=== PATIENT | male | born 1960 | race American Indian/Alaskan Native ===

== ENCOUNTER 2018-05-08 07:24 | Day surgery (SDC) | payer MEDICARE ==
[2018-05-08] VITALS (18 sets, daily range): BP systolic 127–186; BP diastolic 86–120
[~2018-05-08 07:24] MED LIST: ASPI-611 PO; CARV3.122 PO; LISI40TA4 PO; NITR0.4T51 SL; PANT-47 PO; TICA90TA PO; ZOLP10TA5 PO
[2018-05-08] MEDS ORDERED: LIDOcaine 1%/PF 5ML 10 MG/ML VIAL IJ ONE (07:55)
[2018-05-08] MEDS ORDERED: MIDAZolam 5mg/5ml vial IV ONE (07:55)
[2018-05-08 08:00] LABS: HEMATOCRIT 42.1 % (42.0-52.0); HEMOGLOBIN 13.9 g/dl (14.0-17.9); MEAN CORPUSCULAR HEMOGLOBIN 29.3 PG (27.0-31.0); MEAN CORPUSCULAR VOLUME 88.6 FL (78-98); MEAN PLATELET VOLUME 10.2 FL (7.4-10.4); PLATELET COUNT 276 X10'3 (140-440); RED BLOOD COUNT 4.76 X10'6 (4.70-6.10); RED CELL DISTRIBUTION WIDTH 15.8 % (11.5-14.5); WHITE BLOOD COUNT 7.7 X10'3 (4.5-11.0)
[2018-05-08] MEDS ORDERED: normal saline 1000ml 1,000 ML IV SCH (08:15)
[2018-05-08] MEDS ORDERED: captoPRIL 25mg tablet PO ONE (08:15)
[2018-05-08] MEDS ORDERED: lisinopril 5mg tablet PO ONE (08:30)
[2018-05-08 09:06] LABS: ANISOCYTOSIS 1+; PLATELET ESTIMATE NORMAL; TOTAL CELLS COUNTED 100
[2018-05-08 09:08] LABS: LARGE PLATELETS FEW; SCHISTOCYTES FEW; TARGET CELLS 1+
[2018-05-08] MEDS ORDERED: cloNIDine 0.1 mg tablet PO ONE (10:05)
[2018-05-08 13:39] LABS: HEMATOCRIT 38.2 % (42.0-52.0); HEMOGLOBIN 12.6 g/dl (14.0-17.9); MEAN CORPUSCULAR HEMOGLOBIN 29.2 PG (27.0-31.0); MEAN CORPUSCULAR HGB CONC 33.1 % (33.0-36.5); MEAN CORPUSCULAR VOLUME 88.4 FL (78-98); MEAN PLATELET VOLUME 10.1 FL (7.4-10.4); PLATELET COUNT 243 X10'3 (140-440); RED BLOOD COUNT 4.32 X10'6 (4.70-6.10); RED CELL DISTRIBUTION WIDTH 15.3 % (11.5-14.5); WHITE BLOOD COUNT 6.4 X10'3 (4.5-11.0)
[2018-05-08 14:16] LABS: PLATELET ESTIMATE NORMAL; SCHISTOCYTES FEW; TARGET CELLS 1+; TOTAL CELLS COUNTED 100
[2018-05-08 14:17] LABS: LARGE PLATELETS FEW; SPHEROCYTES FEW
[2018-05-08 15:20] LABS: HEMATOCRIT 37.8 % (42.0-52.0); HEMOGLOBIN 12.5 g/dl (14.0-17.9); MEAN CORPUSCULAR HEMOGLOBIN 29.3 PG (27.0-31.0); MEAN CORPUSCULAR HGB CONC 33.2 % (33.0-36.5); MEAN CORPUSCULAR VOLUME 88.4 FL (78-98); MEAN PLATELET VOLUME 10.3 FL (7.4-10.4); PLATELET COUNT 248 X10'3 (140-440); RED BLOOD COUNT 4.28 X10'6 (4.70-6.10); RED CELL DISTRIBUTION WIDTH 15.5 % (11.5-14.5); WHITE BLOOD COUNT 6.2 X10'3 (4.5-11.0)
[2018-05-08] MEDS ORDERED: HYDR-565 PO (16:02)
[2018-05-08 19:13] LABS: TOTAL CELLS COUNTED 100
[2018-05-08 19:22] LABS: PLATELET ESTIMATE NORMAL; TARGET CELLS FEW
== END 2018-05-08 16:10 | disposition home or self-care (01) ==
LOC: SSTAY O 07:24
PROVIDERS: ATTEND Internal Medicine Critical Care Medicine
DX: I12.9 Hypertensive chronic kidney disease with stage 1 through stage 4 chronic kidney disease, or unspecified chronic kidney disease (principal); N18.3 Chronic kidney disease, stage 3 (moderate); I25.10 Atherosclerotic heart disease of native coronary artery without angina pectoris; I25.2 Old myocardial infarction; G90.50 Complex regional pain syndrome I, unspecified; C90.00 Multiple myeloma not having achieved remission; Z90.89 Acquired absence of other organs; Z72.89 Other problems related to lifestyle; Z79.891 Long term (current) use of opiate analgesic; Z88.6 Allergy status to analgesic agent; Z86.74 Personal history of sudden cardiac arrest; Z87.442 Personal history of urinary calculi; Z79.01 Long term (current) use of anticoagulants; Z95.5 Presence of coronary angioplasty implant and graft; Z90.49 Acquired absence of other specified parts of digestive tract; Z90.81 Acquired absence of spleen; Z79.899 Other long term (current) drug therapy; Z98.890 Other specified postprocedural states; Z82.49 Family history of ischemic heart disease and other diseases of the circulatory system; Z80.9 Family history of malignant neoplasm, unspecified
CPT/HCPCS: 36415; 50200; 76942; 85025; 85576; 86885; 86900; 86901; 86920; A6449; J2001; J2250; J7030; 88300; A4620

== ENCOUNTER 2019-01-07 06:01 | Inpatient (IN) | payer MEDICARE, OTHER ==
[~2019-01-07] VITALS: Ht 185.4 cm; Wt 111.4 kg
[~2019-01-07 06:01] MED LIST changes: -ASPI-611 PO; -CARV3.122 PO; -NITR0.4T51 SL; -PANT-47 PO; -TICA90TA PO; -ZOLP10TA5 PO
[2019-01-07] MEDS ORDERED: normal saline 1000ml 1,000 ML IV ONE (06:25)
[2019-01-07] MEDS ORDERED: morphine 2 MG/ML inj. syringe IV PRN ×2 (06:30→15:45)
[2019-01-07] MEDS ORDERED: normal saline 1000ML IV soln IVB ONE (06:30)
[2019-01-07] MEDS ORDERED: D5-1/2NS w/20 mEq potassium per 1000ml IV ONE (06:30)
[2019-01-07] MEDS: metoprolol tartrate 1mg/ml inj IV SCH ×7 (06:50→07:50)
[2019-01-07] MEDS ORDERED: magnesium 2GM in 50ml NS 50 ML IV PRN (08:25)
[2019-01-07] MEDS ORDERED: potassium Cl 20 mEq SR tablet PO PRN ×2 (08:25)
[2019-01-07] MEDS ORDERED: potassium Cl 40MEQ/NS 500ml 500 ML IV PRN ×2 (08:25)
[2019-01-07] MEDS ORDERED: magnesium Cl slow-release 64mg tablet PO PRN (08:25)
[2019-01-07] MEDS ORDERED: ondansetron/PF 4mg/2ml inj IV PRN (08:25)
[2019-01-07] MEDS: normal saline 1000ml 1,000 ML IV SCH ×3 (08:25→22:20)
[2019-01-07] MEDS ORDERED: magnesium 4gm in 100ml NS 100 ML IV PRN (08:25)
[2019-01-07 08:27] LABS: BASOPHILS # (AUTO) 0.1 X10'3 (0-0.2); BASOPHILS % (AUTO) 0.9 % (0-1); EOSINOPHILS # (AUTO) 0.1 X10'3 (0-0.9); EOSINOPHILS % (AUTO) 0.7 % (0-6); HEMATOCRIT 35.7 % (42.0-52.0); LYMPHOCYTES % (AUTO) 11.2 % (21-51); MEAN CORPUSCULAR HEMOGLOBIN 29.1 PG (27.0-31.0); MEAN CORPUSCULAR HGB CONC 33.6 g/dL (33.0-36.5); MEAN CORPUSCULAR VOLUME 86.4 FL (78-98); MEAN PLATELET VOLUME 9.8 FL (7.4-10.4); MONOCYTES # (AUTO) 0.6 X10'3 (0-0.9); MONOCYTES % (AUTO) 7.1 % (2-12); NEUTROPHILS # (AUTO) 6.8 X10'3 (1.8-7.7); NEUTROPHILS % (AUTO) 80.1 % (42-75); PLATELET COUNT 279 X10'3 (140-440); RED BLOOD COUNT 4.14 X10'6 (4.70-6.10); RED CELL DISTRIBUTION WIDTH 15.3 % (11.5-14.5); WHITE BLOOD COUNT 8.5 X10'3 (4.5-11.0)
[2019-01-07 08:41] LABS: ALANINE AMINOTRANSFERASE 23 U/L (12-78); ALBUMIN 2.6 G/DL (3.4-5.0); ALBUMIN/GLOBULIN RATIO 0.5 (1.1-1.5); ALKALINE PHOSPHATASE 98 IU/L (46-116); ANION GAP 10 (8-16); ASPARTATE AMINO TRANSFERASE 16 U/L (10-37); BILIRUBIN,TOTAL 0.8 MG/DL (0.1-1.0); BLOOD UREA NITROGEN 35 MG/DL (7-18); BUN/CREATININE RATIO 14.5 (5.4-32.0); CALCIUM 8.3 MG/DL (8.5-10.1); CHLORIDE 108 MMOL/L (99-107); CREATININE 2.42 MG/DL (0.60-1.10); GLUCOSE 126 MG/DL (70-104); LIPASE 337 U/L (73-393); MAGNESIUM 1.7 MG/DL (1.5-2.4); POTASSIUM 3.8 MMOL/L (3.5-5.1); SODIUM 139 MMOL/L (135-145); TOTAL CARBON DIOXIDE 21.1 MMOL/L (24-32); TOTAL PROTEIN 7.4 G/DL (6.4-8.2); eGFR 28 ML/MIN
[2019-01-07] MEDS ORDERED: LIDOcaine Viscous 15ml cup PO ONE (09:30)
--- NOTE | 2019-01-07 09:33 | NUR ---
Patient in ER. I have received report from MELANY Anderson and had the opportunity to ask questions, awaiting patient arrival to floor.
[2019-01-07] MEDS: morphine 2 MG/ML inj. syringe IV PRN ×2 (10:17→15:08)
[2019-01-07 10:20] VITALS: BP 155/102
--- NOTE | 2019-01-07 11:45 | NUR ---
Pagenicolasa GRIFFIN to complete med req.
[2019-01-07 12:45] VITALS: BP 173/109
--- NOTE | 2019-01-07 12:47 | NUR ---
Patient's BP 173/109. No BP medications ordered. Page out to Dr Vitale. Awaiting response.
[2019-01-07] MEDS ORDERED: FLU VACC QUAD 2018(5 YR UP)/PF 60 MCG/0.5 ML SYRINGE IM ONE (13:00)
[2019-01-07] MEDS: hydrALAZINE 20mg/ml inj. IV SCH ×2 (13:08→22:18)
[2019-01-07] MEDS ORDERED: morphine 2 MG/ML inj. syringe IV ONE (15:50)
--- NOTE | 2019-01-07 16:00 | NUR ---
Patient still very painful after 1mg morphine. Dr. Vitale ordered 1mg more of morphine. Inquired need for repeat CT scan. stated no need for repeat scans at this time.
--- NOTE | 2019-01-07 17:30 | NUR ---
Patients BP 191/120 ... very painful again. MD aware. Awaiting new orders.
--- NOTE | 2019-01-07 17:57 | NUR ---
Dr. Vitale paged again. Patient still very painful. Awaiting response.
[2019-01-07] MEDS ORDERED: HYDROmorphone 1 mg/ml syringe IV PRN (18:20)
--- NOTE | 2019-01-07 18:45 | NUR ---
Problems reprioritized. Patient report given, questions answered & plan of care reviewed with MELANY NORWOOD.
--- NOTE | 2019-01-07 19:00 | NUR ---
Patient in room [facility]. I have received report from Ladonna MOSLEY and had the opportunity to ask questions and assume patient care. Pt laying bed on his back with NG on low intermittent suction and SCD's on. Pt extremely painful and expressing concern that his pain isn't being handled and he doesn't know how much more he can take. New order from Dr Vitale for 1mg dilaudid Q4h just came. Will administer and continue to monitor pain.
[2019-01-07 20:08] VITALS: BP 99/59
[2019-01-07] MEDS: HYDROmorphone 1 mg/ml syringe IV PRN (22:17)
[2019-01-07] MEDS: metroNIDAZOLE-Flagyl 250mg/NS 50 ML IV SCH (23:47)
[2019-01-08] VITALS (7 sets, daily range): BP systolic 165–195; BP diastolic 98–108
[2019-01-08] MEDS: HYDROmorphone 1 mg/ml syringe IV PRN ×5 (01:20→20:43)
[2019-01-08] MEDS: hydrALAZINE 20mg/ml inj. IV SCH ×4 (02:22→20:37)
[2019-01-08 04:17] LABS: BASOPHILS # (AUTO) 0.1 X10'3 (0-0.2); BASOPHILS % (AUTO) 0.7 % (0-1); EOSINOPHILS # (AUTO) 0.1 X10'3 (0-0.9); EOSINOPHILS % (AUTO) 1.3 % (0-6); HEMATOCRIT 37.8 % (42.0-52.0); HEMOGLOBIN 12.6 g/dl (14.0-17.9); LYMPHOCYTES # (AUTO) 0.8 X10'3 (1.1-4.8); LYMPHOCYTES % (AUTO) 8.9 % (21-51); MEAN CORPUSCULAR HEMOGLOBIN 28.7 PG (27.0-31.0); MEAN CORPUSCULAR HGB CONC 33.3 g/dL (33.0-36.5); MEAN CORPUSCULAR VOLUME 86.1 FL (78-98); MEAN PLATELET VOLUME 9.6 FL (7.4-10.4); NEUTROPHILS # (AUTO) 7.5 X10'3 (1.8-7.7); NEUTROPHILS % (AUTO) 79.1 % (42-75); PLATELET COUNT 309 X10'3 (140-440); RED BLOOD COUNT 4.39 X10'6 (4.70-6.10); RED CELL DISTRIBUTION WIDTH 15.6 % (11.5-14.5); WHITE BLOOD COUNT 9.5 X10'3 (4.5-11.0)
[2019-01-08 04:20] LABS: ALBUMIN 2.8 G/DL (3.4-5.0); ANION GAP 8 (8-16); BLOOD UREA NITROGEN 31 MG/DL (7-18); BUN/CREATININE RATIO 12.6 (5.4-32.0); CALCIUM 9.7 MG/DL (8.5-10.1); CHLORIDE 111 MMOL/L (99-107); CREATININE 2.47 MG/DL (0.60-1.10); GLUCOSE 105 MG/DL (70-104); MAGNESIUM 1.8 MG/DL (1.5-2.4); POTASSIUM 4.3 MMOL/L (3.5-5.1); SODIUM 145 MMOL/L (135-145); TOTAL CARBON DIOXIDE 25.6 MMOL/L (24-32); eGFR 27 ML/MIN
[2019-01-08] MEDS ORDERED: PER5325T (05:41)
--- NOTE | 2019-01-08 06:20 | NUR ---
Problems reprioritized. Patient report given, questions answered & plan of care reviewed with Meaghan MOSLEY.
--- NOTE | 2019-01-08 07:09 | NUR ---
Patient in room [facility]. I have received report from Malissa MOSLEY and had the opportunity to ask questions and assume patient care.
[2019-01-08] MEDS: K and/or MAG REPLACEMENT MC SCH (07:31)
[2019-01-08] MEDS: metroNIDAZOLE-Flagyl 250mg/NS 50 ML IV SCH ×2 (07:36→16:15)
[2019-01-08] MEDS: levoFLOXACIN-Levaquin 250mg/D5 50 ML IV SCH (08:17)
[2019-01-08] MEDS: normal saline 1000ml 1,000 ML IV SCH ×2 (08:23→20:45)
--- NOTE | 2019-01-08 11:16 | NUR ---
informed of high BP of 178/105. stated she would address medications.
--- NOTE | 2019-01-08 15:39 | NUR ---
called regarding high BP 195/106. stated she would input orders. Will continue to monitor.
[2019-01-08] MEDS: enalaprilat dihydrate 2.5mg/2ml vial IV SCH ×2 (17:03→20:00)
--- NOTE | 2019-01-08 17:30 | NUR ---
Dr. Nichole called to clarify CT order regarding kidney function. stated only oral contrast for CT Ab/pelvis for tomorrow.
--- NOTE | 2019-01-08 19:13 | NUR ---
Problems reprioritized. Patient report given, questions answered & plan of care reviewed with Agustina MOSLEY.
--- NOTE | 2019-01-08 19:15 | NUR ---
Patient in room [facility]. I have received report from BARTOLO MOSLEY and had the opportunity to ask questions and assume patient care.
[2019-01-08] MEDS: lactobacillus rhamnosus 10,000 MMU CELLS/CAPSULE PO SCH (20:00)
[2019-01-08] MEDS ORDERED: enalaprilat dihydrate 2.5mg/2ml vial IV SCH (20:00)
[2019-01-08] MEDS: diatr meglu/diatrizoate 30ml oral sol.-(3 dose) bottle PO SCH (22:10)
[2019-01-09] VITALS: BP 158/98
[2019-01-09] MEDS: metroNIDAZOLE-Flagyl 250mg/NS 50 ML IV SCH ×4 (00:18→23:53)
[2019-01-09] MEDS: HYDROmorphone 1 mg/ml syringe IV PRN ×2 (00:24→04:55)
[2019-01-09] MEDS: hydrALAZINE 20mg/ml inj. IV SCH ×2 (02:00→10:35)
[2019-01-09] MEDS: enalaprilat dihydrate 2.5mg/2ml vial IV SCH (02:36)
[2019-01-09 05:30] LABS: ALBUMIN 2.8 G/DL (3.4-5.0); ANION GAP 5 (8-16); BLOOD UREA NITROGEN 31 MG/DL (7-18); BUN/CREATININE RATIO 12.8 (5.4-32.0); CALCIUM 9.5 MG/DL (8.5-10.1); CHLORIDE 111 MMOL/L (99-107); CREATININE 2.42 MG/DL (0.60-1.10); GLUCOSE 89 MG/DL (70-104); MAGNESIUM 1.8 MG/DL (1.5-2.4); POTASSIUM 4.4 MMOL/L (3.5-5.1); SODIUM 147 MMOL/L (135-145); TOTAL CARBON DIOXIDE 31.2 MMOL/L (24-32); eGFR 28 ML/MIN
[2019-01-09 05:40] LABS: BASOPHILS # (AUTO) 0.1 X10'3 (0-0.2); EOSINOPHILS # (AUTO) 0.1 X10'3 (0-0.9); EOSINOPHILS % (AUTO) 1.4 % (0-6); HEMATOCRIT 36.7 % (42.0-52.0); HEMOGLOBIN 12.1 g/dl (14.0-17.9); LYMPHOCYTES # (AUTO) 1.2 X10'3 (1.1-4.8); LYMPHOCYTES % (AUTO) 14.2 % (21-51); MEAN CORPUSCULAR HEMOGLOBIN 28.6 PG (27.0-31.0); MEAN CORPUSCULAR HGB CONC 33.1 g/dL (33.0-36.5); MEAN CORPUSCULAR VOLUME 86.5 FL (78-98); MEAN PLATELET VOLUME 10.2 FL (7.4-10.4); MONOCYTES # (AUTO) 1.3 X10'3 (0-0.9); MONOCYTES % (AUTO) 15.5 % (2-12); NEUTROPHILS # (AUTO) 5.8 X10'3 (1.8-7.7); NEUTROPHILS % (AUTO) 67.9 % (42-75); PLATELET COUNT 289 X10'3 (140-440); RED BLOOD COUNT 4.24 X10'6 (4.70-6.10); RED CELL DISTRIBUTION WIDTH 15.3 % (11.5-14.5); WHITE BLOOD COUNT 8.6 X10'3 (4.5-11.0)
--- NOTE | 2019-01-09 06:30 | NUR ---
Problems reprioritized. Patient report given, questions answered & plan of care reviewed with ROLAND MOSLEY.
[2019-01-09 07:00] VITALS: BP 166/96
[2019-01-09 07:11] VITALS: BP 128/67
[2019-01-09] MEDS: pantoprazole 40 MG vial IV SCH (07:38)
[2019-01-09] MEDS: diatr meglu/diatrizoate 30ml oral sol.-(3 dose) bottle PO SCH ×2 (07:39→10:26)
[2019-01-09] MEDS: lactobacillus rhamnosus 10,000 MMU CELLS/CAPSULE PO SCH ×2 (08:00→21:36)
[2019-01-09] MEDS ORDERED: lisinopril 10 MG tablet PO SCH (08:00)
[2019-01-09] MEDS: K and/or MAG REPLACEMENT MC SCH (08:00)
--- NOTE | 2019-01-09 10:26 | NUR ---
Initial: Pt admit with abdominal pain here to r/o obstruction. Per surgeon notes pt has non-incarcerated umbilical hernia and pt states he has passed gas since NG tube was placed. Pt to receive nonoperative management with nasogastric suction for 48 hours for what appears to be a partial or early complete bowel obstruction per surgeon notes. Still no documented BM since 01/05. Pt currently NPO. Will continue to follow. Recommendations: 1) Advance to heart healthy diet as medically indicated 2) Monitor need for additional bowel care 3) Wt per rx Addendum: 01/09/19 at [address] Amended: Links added.
[2019-01-09 11:00] VITALS: BP 200/108
[2019-01-09] MEDS: levoFLOXACIN-Levaquin 250mg/D5 50 ML IV SCH (11:10)
[2019-01-09] MEDS ORDERED: HYDROmorphone 1 mg/ml syringe IV PRN (12:45)
--- NOTE | 2019-01-09 13:23 | NUR ---
Called CT regarding patient results are not up yet. Kavya will look into it and call us back
[2019-01-09] MEDS: normal saline 1000ml 1,000 ML IV SCH (14:12)
[2019-01-09 16:00] VITALS: BP 222/130
[2019-01-09] MEDS: hyDRALAzine 10mg tablet PO SCH ×2 (16:14→23:49)
--- NOTE | 2019-01-09 18:00 | NUR ---
Problems reprioritized. Patient report given, questions answered & plan of care reviewed with Fidelia Mistry RN.
[2019-01-09] MEDS ORDERED: hydrALAZINE 20mg/ml inj. IV ONE (18:10)
--- NOTE | 2019-01-09 18:30 | NUR ---
Patient in room [facility]. I have received report from ROLAND MOSLEY and had the opportunity to ask questions and assume patient care.
[2019-01-09] MEDS: HYDROmorphone inj. 0.5 MG/0.5 ML DISP.SYRIN IV PRN ×2 (19:17→23:49)
[2019-01-09 20:00] VITALS: BP 172/96
[2019-01-10] VITALS (7 sets, daily range): BP systolic 131–186; BP diastolic 83–116
[2019-01-10 04:43] LABS: BASOPHILS # (AUTO) 0.1 X10'3 (0-0.2); EOSINOPHILS # (AUTO) 0.6 X10'3 (0-0.9); EOSINOPHILS % (AUTO) 6.3 % (0-6); HEMATOCRIT 36.2 % (42.0-52.0); HEMOGLOBIN 11.9 g/dl (14.0-17.9); LYMPHOCYTES # (AUTO) 1.8 X10'3 (1.1-4.8); LYMPHOCYTES % (AUTO) 20.9 % (21-51); MEAN CORPUSCULAR HEMOGLOBIN 28.8 PG (27.0-31.0); MEAN CORPUSCULAR VOLUME 87.4 FL (78-98); MEAN PLATELET VOLUME 10.1 FL (7.4-10.4); MONOCYTES # (AUTO) 1.1 X10'3 (0-0.9); MONOCYTES % (AUTO) 12.8 % (2-12); NEUTROPHILS # (AUTO) 5.2 X10'3 (1.8-7.7); PLATELET COUNT 267 X10'3 (140-440); RED BLOOD COUNT 4.14 X10'6 (4.70-6.10); RED CELL DISTRIBUTION WIDTH 15.1 % (11.5-14.5); WHITE BLOOD COUNT 8.8 X10'3 (4.5-11.0)
[2019-01-10 05:03] LABS: ALBUMIN 2.5 G/DL (3.4-5.0); ANION GAP 5 (8-16); BLOOD UREA NITROGEN 26 MG/DL (7-18); BUN/CREATININE RATIO 11.2 (5.4-32.0); CALCIUM 8.9 MG/DL (8.5-10.1); CHLORIDE 109 MMOL/L (99-107); CREATININE 2.32 MG/DL (0.60-1.10); GLUCOSE 89 MG/DL (70-104); MAGNESIUM 1.6 MG/DL (1.5-2.4); POTASSIUM 3.4 MMOL/L (3.5-5.1); SODIUM 143 MMOL/L (135-145); eGFR 29 ML/MIN
--- NOTE | 2019-01-10 06:30 | NUR ---
Problems reprioritized. Patient report given, questions answered & plan of care reviewed with ROLAND MOSLEY.
--- NOTE | 2019-01-10 07:01 | NUR ---
Patient in room [facility]. I have received report from Fidelia Mistry RN and had the opportunity to ask questions and assume patient care.
[2019-01-10] MEDS: amLODIPine 5mg tablet PO SCH (07:25)
[2019-01-10] MEDS: pantoprazole 40 MG vial IV SCH (07:26)
[2019-01-10] MEDS: hyDRALAzine 10mg tablet PO SCH ×2 (07:26→16:13)
[2019-01-10] MEDS: lactobacillus rhamnosus 10,000 MMU CELLS/CAPSULE PO SCH ×2 (07:26→19:20)
[2019-01-10] MEDS: normal saline 1000ml 1,000 ML IV SCH ×2 (07:27→23:24)
[2019-01-10] MEDS: metroNIDAZOLE-Flagyl 250mg/NS 50 ML IV SCH ×2 (07:27→16:13)
[2019-01-10] MEDS ORDERED: lisinopril 10 MG tablet PO SCH (08:00)
[2019-01-10] MEDS: K and/or MAG REPLACEMENT MC SCH (08:00)
[2019-01-10] MEDS: HYDROmorphone inj. 0.5 MG/0.5 ML DISP.SYRIN IV PRN ×4 (08:35→23:23)
[2019-01-10] MEDS: lisinopril 10 MG tablet PO SCH (10:14)
--- NOTE | 2019-01-10 16:30 | NUR ---
Advised Dr Nelson patients BP is still 177/104 PO Hydralazine given per MD orders. Per Dr Nelson no furter orders at this time continue with medication as ordered.
[2019-01-10] MEDS ORDERED: magnesium Cl slow-release 64mg tablet PO PRN (17:35)
[2019-01-10] MEDS ORDERED: potassium Cl 20 mEq SR tablet PO PRN (17:35)
[2019-01-10] MEDS ORDERED: magnesium 4gm in 100ml NS 100 ML IV PRN (17:35)
[2019-01-10] MEDS ORDERED: potassium Cl 40MEQ/NS 500ml 500 ML IV PRN ×2 (17:35)
[2019-01-10] MEDS: potassium Cl 20 mEq SR tablet PO PRN (17:47)
--- NOTE | 2019-01-10 18:45 | NUR ---
Problems reprioritized. Patient report given, questions answered & plan of care reviewed with Fidelia Mistry RN.
--- NOTE | 2019-01-10 18:47 | NUR ---
Patient in room [facility]. I have received report from ROLAND MOSLEY and had the opportunity to ask questions and assume patient care.
[2019-01-11] VITALS: BP 204/121
[2019-01-11] MEDS: metroNIDAZOLE-Flagyl 250mg/NS 50 ML IV SCH ×3 (00:06→15:38)
[2019-01-11] MEDS: hyDRALAzine 10mg tablet PO SCH ×3 (00:09→15:39)
[2019-01-11 02:00] VITALS: BP 182/102
[2019-01-11 04:00] VITALS: BP 188/121
--- NOTE | 2019-01-11 04:10 | NUR ---
PAGEJaiden NUÑEZ CALLED BACK AND WAS INFORMED OF ELEVATED BLOOD PRESSURE 188/121 WITH ORDER TO GIVE CLONIDINE 0.2MG ONE TIME DOSE.
[2019-01-11] MEDS ORDERED: cloNIDine 0.1 mg tablet PO ONE (04:25)
[2019-01-11] MEDS: HYDROmorphone inj. 0.5 MG/0.5 ML DISP.SYRIN IV PRN ×2 (04:53→09:04)
[2019-01-11 05:15] LABS: BASOPHILS # (AUTO) 0.1 X10'3 (0-0.2); BASOPHILS % (AUTO) 1.6 % (0-1); EOSINOPHILS # (AUTO) 0.3 X10'3 (0-0.9); HEMATOCRIT 37.5 % (42.0-52.0); HEMOGLOBIN 12.2 g/dl (14.0-17.9); LYMPHOCYTES # (AUTO) 0.7 X10'3 (1.1-4.8); LYMPHOCYTES % (AUTO) 7.3 % (21-51); MEAN CORPUSCULAR HEMOGLOBIN 28.7 PG (27.0-31.0); MEAN CORPUSCULAR HGB CONC 32.6 g/dL (33.0-36.5); MEAN CORPUSCULAR VOLUME 87.9 FL (78-98); MEAN PLATELET VOLUME 10.4 FL (7.4-10.4); MONOCYTES # (AUTO) 0.7 X10'3 (0-0.9); MONOCYTES % (AUTO) 6.9 % (2-12); NEUTROPHILS # (AUTO) 7.7 X10'3 (1.8-7.7); NEUTROPHILS % (AUTO) 81.2 % (42-75); PLATELET COUNT 270 X10'3 (140-440); RED BLOOD COUNT 4.26 X10'6 (4.70-6.10); RED CELL DISTRIBUTION WIDTH 15.2 % (11.5-14.5); WHITE BLOOD COUNT 9.5 X10'3 (4.5-11.0)
[2019-01-11 05:21] LABS: ALBUMIN 2.5 G/DL (3.4-5.0); ANION GAP 10 (8-16); BLOOD UREA NITROGEN 20 MG/DL (7-18); BUN/CREATININE RATIO 9.1 (5.4-32.0); CALCIUM 8.9 MG/DL (8.5-10.1); CHLORIDE 107 MMOL/L (99-107); CREATININE 2.19 MG/DL (0.60-1.10); GLUCOSE 114 MG/DL (70-104); MAGNESIUM 1.5 MG/DL (1.5-2.4); POTASSIUM 3.5 MMOL/L (3.5-5.1); SODIUM 141 MMOL/L (135-145); eGFR 31 ML/MIN
--- NOTE | 2019-01-11 06:20 | NUR ---
Patient in room [facility]. I have received report from Fidelia Mistry RN and had the opportunity to ask questions and assume patient care. Patient very painful at this time. Will check to see when next pain medication can be given. Call light and items of frequent use in reach of patient.
--- NOTE | 2019-01-11 06:30 | NUR ---
Problems reprioritized. Patient report given, questions answered & plan of care reviewed with KURT MOSLEY.
[2019-01-11 07:08] VITALS: BP 129/78
[2019-01-11] MEDS: K and/or MAG REPLACEMENT MC SCH (08:00)
[2019-01-11] MEDS: pantoprazole 40 MG vial IV SCH (09:04)
[2019-01-11] MEDS: lactobacillus rhamnosus 10,000 MMU CELLS/CAPSULE PO SCH ×2 (09:10→20:51)
[2019-01-11] MEDS: lisinopril 10 MG tablet PO SCH (09:11)
[2019-01-11] MEDS: amLODIPine 5mg tablet PO SCH (09:11)
[2019-01-11 11:37] VITALS: BP_SYST 108; BP_SYST 118; BP_DIAS 50; BP_DIAS 72
[2019-01-11] MEDS: normal saline 1000ml 1,000 ML IV SCH (14:00)
--- NOTE | 2019-01-11 18:34 | NUR ---
Problems reprioritized. Patient report given, questions answered & plan of care reviewed with Fidelia Mistry RN. Patient finishing dinner at this time.
--- NOTE | 2019-01-11 18:35 | NUR ---
Patient in room [facility]. I have received report from KURT MOSLEY and had the opportunity to ask questions and assume patient care.
[2019-01-11 20:00] VITALS: BP 152/91
[2019-01-11] MEDS: temazepam 15mg capsule PO PRN (22:47)
[2019-01-12] VITALS: BP 116/62
[2019-01-12] MEDS: metroNIDAZOLE-Flagyl 250mg/NS 50 ML IV SCH ×2 (00:53→07:49)
[2019-01-12] MEDS: normal saline 1000ml 1,000 ML IV SCH ×2 (00:54→16:35)
[2019-01-12] MEDS: hyDRALAzine 10mg tablet PO SCH ×3 (00:57→19:29)
[2019-01-12] MEDS: HYDROmorphone inj. 0.5 MG/0.5 ML DISP.SYRIN IV PRN ×5 (01:48→21:00)
[2019-01-12 04:33] LABS: BASOPHILS # (AUTO) 0.1 X10'3 (0-0.2); BASOPHILS % (AUTO) 1.8 % (0-1); EOSINOPHILS # (AUTO) 0.8 X10'3 (0-0.9); EOSINOPHILS % (AUTO) 12.2 % (0-6); HEMATOCRIT 35.2 % (42.0-52.0); HEMOGLOBIN 11.6 g/dl (14.0-17.9); LYMPHOCYTES % (AUTO) 15.1 % (21-51); MEAN CORPUSCULAR HEMOGLOBIN 28.7 PG (27.0-31.0); MEAN CORPUSCULAR HGB CONC 33.1 g/dL (33.0-36.5); MEAN CORPUSCULAR VOLUME 86.8 FL (78-98); MEAN PLATELET VOLUME 10.7 FL (7.4-10.4); MONOCYTES # (AUTO) 0.7 X10'3 (0-0.9); MONOCYTES % (AUTO) 9.8 % (2-12); NEUTROPHILS # (AUTO) 4.1 X10'3 (1.8-7.7); NEUTROPHILS % (AUTO) 61.1 % (42-75); PLATELET COUNT 256 X10'3 (140-440); RED BLOOD COUNT 4.05 X10'6 (4.70-6.10); WHITE BLOOD COUNT 6.8 X10'3 (4.5-11.0)
[2019-01-12 04:52] LABS: ALBUMIN 2.5 G/DL (3.4-5.0); ANION GAP 10 (8-16); BLOOD UREA NITROGEN 18 MG/DL (7-18); BUN/CREATININE RATIO 8.3 (5.4-32.0); CALCIUM 8.7 MG/DL (8.5-10.1); CHLORIDE 107 MMOL/L (99-107); CREATININE 2.18 MG/DL (0.60-1.10); GLUCOSE 90 MG/DL (70-104); MAGNESIUM 1.5 MG/DL (1.5-2.4); POTASSIUM 3.2 MMOL/L (3.5-5.1); SODIUM 141 MMOL/L (135-145); TOTAL CARBON DIOXIDE 24.2 MMOL/L (24-32); eGFR 31 ML/MIN
--- NOTE | 2019-01-12 06:08 | NUR ---
Problems reprioritized. Patient report given, questions answered & plan of care reviewed with KURT MOSLEY.
--- NOTE | 2019-01-12 06:19 | NUR ---
Patient in room [facility]. I have received report from Fidelia Mistry RN and had the opportunity to ask questions and assume patient care. Patient resting comfortably at this time. Call light and items of frequent use in reach of patient at this time.
[2019-01-12] MEDS: K and/or MAG REPLACEMENT MC SCH (07:06)
[2019-01-12 07:38] VITALS: BP 172/101
[2019-01-12] MEDS: methylPREDNISolone sod succ/PF 40mg inj. IV SCH (07:49)
[2019-01-12] MEDS: pantoprazole 40 MG vial IV SCH (07:49)
[2019-01-12] MEDS: lactobacillus rhamnosus 10,000 MMU CELLS/CAPSULE PO SCH ×2 (07:59→19:28)
[2019-01-12] MEDS: amLODIPine 5mg tablet PO SCH (07:59)
[2019-01-12] MEDS: lisinopril 10 MG tablet PO SCH (08:00)
[2019-01-12] MEDS: potassium Cl 20 mEq SR tablet PO PRN ×3 (08:01→16:21)
[2019-01-12 12:00] VITALS: BP 138/84
--- NOTE | 2019-01-12 13:05 | NUR ---
reassessment: Pt Advanced to regular diet from 100% PO full liquids. LBM 01/11 w/ abdominal pain improving per MD note. CT revealed IBD; possibly f/u outpt w/ GI as well as nephrology for CKD per MD note. Will continue to monitor for diet advancement to low-residue if symptoms persist. Recommendations: 1) Advance to low-residue diet as medically indicated 2) routine bowel care 3) Wt per rx Addendum: 01/12/19 at [address] Amended: Links added.
[2019-01-12] MEDS ORDERED: levoFLOXACIN-Levaquin 500mg/D5 100 ML IV ONE (15:52)
--- NOTE | 2019-01-12 18:06 | NUR ---
Received report from MELANY Pemberton. Patient is awake and alert on room air, in no apparent distress. Visitor at bedside. Call light and items of frequent use within reach. Will continue to monitor.
--- NOTE | 2019-01-12 18:15 | NUR ---
Problems reprioritized. Patient report given, questions answered & plan of care reviewed with MELANY Michael.
[2019-01-12 20:00] VITALS: BP 138/86
[2019-01-12] MEDS: temazepam 15mg capsule PO PRN (20:59)
[2019-01-13] VITALS: BP 132/92
[2019-01-13] MEDS: hyDRALAzine 10mg tablet PO SCH ×3 (01:25→13:55)
[2019-01-13] MEDS: HYDROmorphone inj. 0.5 MG/0.5 ML DISP.SYRIN IV PRN (01:25)
[2019-01-13 04:40] LABS: MAGNESIUM 1.7 MG/DL (1.5-2.4)
--- NOTE | 2019-01-13 06:20 | NUR ---
Patient in room [facility] 344. I have received report from MELANY Michael and had the opportunity to ask questions and assume patient care. Patient resting comfortably at this time. Call light and items of frequent use in reach of patient.
--- NOTE | 2019-01-13 06:25 | NUR ---
Problems reprioritized. Patient report given, questions answered & plan of care reviewed with MELANY Pemberton.
[2019-01-13 07:19] VITALS: BP 166/108
[2019-01-13] MEDS ORDERED: pantoprazole 40mg Tablet.DR PO SCH (07:30)
[2019-01-13] MEDS: K and/or MAG REPLACEMENT MC SCH (08:00)
[2019-01-13] MEDS: lisinopril 10 MG tablet PO SCH (08:49)
[2019-01-13] MEDS: amLODIPine 5mg tablet PO SCH (08:49)
[2019-01-13] MEDS: lactobacillus rhamnosus 10,000 MMU CELLS/CAPSULE PO SCH (08:49)
[2019-01-13] MEDS: methylPREDNISolone sod succ/PF 40mg inj. IV SCH (08:50)
[2019-01-13] MEDS: normal saline 1000ml 1,000 ML IV SCH (08:52)
--- NOTE | 2019-01-13 12:16 | NUR ---
Patient in room [facility]. I have received report from MELANY Pemberton and had the opportunity to ask questions and assume patient care.
[2019-01-13 13:38] VITALS: BP 174/102
[2019-01-13 13:50] VITALS: BP 178/110
[2019-01-13] MEDS ORDERED: CIPR-230 PO (13:56)
[2019-01-13] MEDS ORDERED: METR-159 PO (13:56)
[2019-01-13] MEDS ORDERED: levoFLOXACIN-Levaquin 250mg/D5 50 ML IV SCH (15:00)
--- NOTE | 2019-01-13 15:20 | NUR ---
Patient discharged home via spouse and taken from unit via wheelchair with x1 staff. Patient alert, oriented and in no apparent distress at time of discharge. Patient PIV removed with cannula intact. Patient took all belongings including medications delivered with [facility]. Patient stated an understanding of discharge instructions and had time for questions an answers. Patient stated that he plans to follow up with his PCP.
--- NOTE | 2019-01-13 17:12 | NUR ---
Problems reprioritized. Patient report given, questions answered & plan of care reviewed with MELANY Pemberton.
== END 2019-01-13 15:21 | disposition home or self-care (01) | DRG 683 ==
LOC: ER 06:02 → ED HOLD 09:50 → SUR 3N 10:05
PROVIDERS: ADMIT Internal Medicine; ATTEND Internal Medicine
DX: N17.9 Acute kidney failure, unspecified (principal); R18.8 Other ascites; C90.00 Multiple myeloma not having achieved remission; K56.7 Ileus, unspecified; K52.9 Noninfective gastroenteritis and colitis, unspecified; K63.9 Disease of intestine, unspecified; I25.10 Atherosclerotic heart disease of native coronary artery without angina pectoris; N18.9 Chronic kidney disease, unspecified; I12.9 Hypertensive chronic kidney disease with stage 1 through stage 4 chronic kidney disease, or unspecified chronic kidney disease; Z66 Do not resuscitate; Z23 Encounter for immunization; I25.2 Old myocardial infarction; Z90.81 Acquired absence of spleen; Z90.49 Acquired absence of other specified parts of digestive tract; Z86.718 Personal history of other venous thrombosis and embolism; Z80.8 Family history of malignant neoplasm of other organs or systems; Z82.49 Family history of ischemic heart disease and other diseases of the circulatory system
CPT/HCPCS: 36415; 74176; 80048; 80053; 83690; 83735; 84132; 85025; 87070; 96361; 96374; 99285; C9113; G0378; J0360; J1170; J1956; J2270; J2405; J2920; J3490; J7030; Q2037; Q9963

== ENCOUNTER 2020-06-17 12:28 | Outpatient (CLI) | payer BC, MEDICARE ==
[~2020-06-17] VITALS: Ht 185.4 cm; Wt 106.6 kg
[~2020-06-17 12:28] MED LIST changes: +ALLO100T PO; +CARV-50 PO; +CRIS60OI TOP; -LISI40TA4 PO; +MET0.75G TP; +METR55GE TP; +PER5325T PO; +ZOLP10TA PO
[2020-06-17] MEDS ORDERED: HYDR-4069 PO (13:43)
[2020-06-17] MEDS ORDERED: CARV25TA2 PO (13:43)
[2020-06-17 14:33] LABS: CLARITY,URINE CLEAR (Clear); COLOR,URINE STRAW (Yellow); GLUCOSE, URINE 100 mg/dl (Neg); KETONES,URINE NEGATIVE (Neg); LEUKOCYTE ESTERASE ,URINE NEGATIVE (Neg); NITRITES, URINE NEGATIVE (Neg); OCCULT BLOOD,URINE TRACE-INTACT (Neg); PROTEIN,URINE 100 mg/dl (Neg); UROBILINOGEN,URINE 0.2 E.U/dL (0.2-1.0)
[2020-06-17 14:36] LABS: EOSINOPHILS # (AUTO) 0.7 X10'3 (0-0.9); PRE OP HEMOGLOBIN 11.3 g/dL (14.0-17.9)
[2020-06-17 14:38] LABS: BASOPHILS # (AUTO) 0.1 X10'3 (0-0.2); BASOPHILS % (AUTO) 2.2 % (0-1); EOSINOPHILS % (AUTO) 11.2 % (0-6); LYMPHOCYTES # (AUTO) 1.1 X10'3 (1.1-4.8); LYMPHOCYTES % (AUTO) 18.7 % (21-51); MEAN CORPUSCULAR HGB CONC 32.8 g/dL (33.0-36.5); MEAN CORPUSCULAR VOLUME 91.5 FL (78-98); NEUTROPHILS # (AUTO) 3.1 X10'3 (1.8-7.7); NEUTROPHILS % (AUTO) 51.9 % (42-75); PRE OP HEMATOCRIT 34.3 % (42.0-52.0); PRE OP PLATELET COUNT 197 X10'3 (140-440); RED BLOOD COUNT 3.75 X10'6 (4.70-6.10); RED CELL DISTRIBUTION WIDTH 14.8 % (11.5-14.5)
[2020-06-17 14:45] LABS: UA COLLECTION TYPE CLN CATCH MIDSTREAM
[2020-06-17 14:46] LABS: ALBUMIN 3.6 G/DL (3.4-5.0); ALBUMIN/GLOBULIN RATIO 0.7 (1.1-1.5); ALKALINE PHOSPHATASE 90 IU/L (46-116); BLOOD UREA NITROGEN 55 MG/DL (7-18); BUN/CREATININE RATIO 9.5 (5.4-32.0); CHLORIDE 111 MMOL/L (99-107); PRE OP ALT 35 U/L (30-65); PRE OP ANION GAP 7 (8-16); PRE OP AST 23 U/L (10-37); PRE OP BILIRUB, TOTAL 0.5 MG/DL (0.0-1.0); PRE OP SODIUM 144 MMOL/L (135-145); TOTAL CARBON DIOXIDE 26.2 MMOL/L (24-32); TOTAL PROTEIN 8.5 G/DL (6.4-8.2); eGFR 10 ML/MIN
[2020-06-17 14:47] LABS: BACTERIA,URINE FEW /HPF (Neg); RBC,URINE 0-2 /HPF (0-2); SQUAMOUS EPITHELIAL CELL,UR FEW /LPF (FEW)
[2020-06-17 14:48] LABS: WBC,URINE 0-4 /HPF (0-4)
[2020-06-17 14:51] LABS: PRE OP GLUCOSE 48 MG/DL (70-104)
[2020-06-17 15:08] LABS: PLATELET ESTIMATE NORMAL; TOTAL CELLS COUNTED 100
[2020-06-17 15:09] LABS: POLYCHROMASIA FEW
[2020-06-17 15:10] LABS: LARGE PLATELETS FEW
[2020-06-23] MEDS ORDERED: ringers solution, lacted 1,000 ML IV SCH (05:00)
[2020-06-23] MEDS ORDERED: ceFAZolin 2gm in dextrose, iso 50 ML IV ONE (05:30)
[2020-06-23] MEDS ORDERED: famotidine 20mg tablet PO ONE (05:30)
[2020-06-23] MEDS ORDERED: DOCUMENT DATE & TIME OF BETA-BLOCKER PO ONE (05:30)
== END 2020-06-17 23:59 | disposition home or self-care (01) ==
LOC: PRE-OP 12:28 → EDSTATUS 06-23 10:45
PROVIDERS: ATTEND Surgery
DX: Z01.812 Encounter for preprocedural laboratory examination (principal); Z20.828 Contact with and (suspected) exposure to other viral communicable diseases
CPT/HCPCS: 36415; 80053; 81001; 85007; 85025; 87635; 93005; J7120

== ENCOUNTER 2020-06-24 10:50 | Day surgery (SDC) | payer BC, MEDICARE ==
[2020-06-24] VITALS (9 sets, daily range): BP systolic 158–175; BP diastolic 89–104
[~2020-06-24] VITALS: Ht 185.4 cm; Wt 106.6 kg
[~2020-06-24 10:50] MED LIST changes: -ALLO100T PO; -CARV-50 PO; +CARV25TA2 PO; -CRIS60OI TOP; +HYDR-4069 PO; -MET0.75G TP; -METR55GE TP; -PER5325T PO
[2020-06-24] MEDS ORDERED: famotidine 20mg tablet PO ONE (12:07)
[2020-06-24] MEDS ORDERED: ringers solution, lacted 1,000 ML IV SCH ×2 (12:07→15:15)
[2020-06-24] MEDS ORDERED: ceFAZolin 2gm in dextrose, iso 50 ML IV ONE (12:20)
[2020-06-24 12:56] LABS: ISTAT CREATININE 6.3 mg/dL (0.8-1.3); ISTAT HGB 12.2 g/dl (14.0-18.0); ISTAT IONIZED CALCIUM 1.24 mmol/L (1.03-1.32); ISTAT K 4.4 mmol/L (3.5-5.1); POC BUN/CREATININE RATIO 8.7 (5.4-32.0)
[2020-06-24] MEDS ORDERED: BUPIVAcaine/PF 2.5 mg/ml (0.25%) 30ml vial ONE (15:13)
[2020-06-24] MEDS ORDERED: heparin 10,000 units/1 ML INJ ONE (15:13)
[2020-06-24] MEDS ORDERED: mupirocin 2% ointment 22GM ONE (15:13)
[2020-06-24] MEDS ORDERED: meperidine/PF 25mg/ml syringe IV PRN ×3 (15:15)
[2020-06-24] MEDS ORDERED: morphine 2 MG/ML inj. syringe IV PRN (15:15)
[2020-06-24] MEDS ORDERED: ondansetron/PF 4mg/2ml inj IV PRN (15:15)
[2020-06-24] MEDS ORDERED: morphine 4 MG/ML inj SYRINge IV PRN (15:15)
[2020-06-24] MEDS ORDERED: proCHLORperazine 10 MG/2 ml inj IV PRN (15:15)
[2020-06-24] MEDS ORDERED: sevoflurane 250ml liquid IH ONE (15:23)
[2020-06-24] MEDS ORDERED: fentaNYL /PF 50mcg/ml 5ml ampule ONE (15:23)
[2020-06-24] MEDS ORDERED: midazolam 2 mg/2 ml injection ONE (15:23)
[2020-06-24] MEDS ORDERED: propofol inj 20 ML IV ONE (15:23)
[2020-06-24] MEDS ORDERED: rocuronium 10mg/ml inj IV ONE (15:23)
[2020-06-24] MEDS ORDERED: heparin sodium, porcine/PF 100unit/ml 5ML syringe ONE (15:24)
[2020-06-24] MEDS ORDERED: neostigmine methylsulfate 1 MG/ML 10ml vial ONE (16:48)
[2020-06-24] MEDS ORDERED: glycopyrrolate 0.2mg/ml inj ONE (16:48)
--- NOTE | 2020-06-24 16:50 | NUR ---
ADMITTED TO PACU FROM OR ACCOMPANIED BY ANESTHESIA. INTIAL PHYSICAL ASSESSMENT DONE AND RECORDED. REPORT RECEIVED FROM ANESTHESIA.
[2020-06-24] MEDS ORDERED: HYDROcodone/acetaminophen 10/325mg tab PO ONE (17:20)
--- NOTE | 2020-06-24 18:47 | NUR ---
DISCHARGE CRITERIA MET, DISCHARGE INSTRUCTIONS GIVEN, DEMONSTRATES VERBAL UNDERSTANDING. DISCHARGED HOME IN GOOD CONDITION.
--- NOTE | 2020-06-24 18:58 | NUR ---
ADMITTED TO PACU FROM OR ACCOMPANIED BY ANESTHESIA. INTIAL PHYSICAL ASSESSMENT DONE AND RECORDED. REPORT RECEIVED FROM ANESTHESIA. Addendum: 06/24/20 at 1859 by Kavya Desai RN ERROR IN ADMIT TIME, ACTUALLY TIME 0378
== END 2020-06-24 19:00 | disposition home or self-care (01) ==
LOC: PAS 10:50
PROVIDERS: ATTEND Surgery
DX: I13.2 Hypertensive heart and chronic kidney disease with heart failure and with stage 5 chronic kidney disease, or end stage renal disease (principal); N18.5 Chronic kidney disease, stage 5; K42.9 Umbilical hernia without obstruction or gangrene; I50.20 Unspecified systolic (congestive) heart failure; I25.10 Atherosclerotic heart disease of native coronary artery without angina pectoris; I25.2 Old myocardial infarction; Z95.5 Presence of coronary angioplasty implant and graft; Z79.899 Other long term (current) drug therapy; Z98.890 Other specified postprocedural states; Z90.49 Acquired absence of other specified parts of digestive tract; Z85.79 Personal history of other malignant neoplasms of lymphoid, hematopoietic and related tissues; Z82.49 Family history of ischemic heart disease and other diseases of the circulatory system
CPT/HCPCS: 49324; 49652; 71045; 80047; C1750; C1758; J1642; J1644; J2250; J2270; J2704; J2710; J3010; J3490; J7120; A4215; A4618; A7000

== ENCOUNTER 2020-11-03 07:55 | Day surgery (SDC) | payer BC, MEDICARE ==
[2020-10-28 10:29] LABS: CLARITY,URINE CLEAR (Clear); COLOR,URINE STRAW (Yellow); GLUCOSE, URINE 100 mg/dl (Neg); KETONES,URINE NEGATIVE (Neg); LEUKOCYTE ESTERASE ,URINE NEGATIVE (Neg); NITRITES, URINE NEGATIVE (Neg); OCCULT BLOOD,URINE SMALL (Neg); PROTEIN,URINE 100 mg/dl (Neg); UROBILINOGEN,URINE 0.2 E.U/dL (0.2-1.0)
[2020-10-28 10:30] LABS: BASOPHILS # (AUTO) 0.2 X10'3 (0-0.2); MEAN CORPUSCULAR VOLUME 91.3 FL (78-98); RED CELL DISTRIBUTION WIDTH 14.9 % (11.5-14.5)
[2020-10-28 10:31] LABS: BASOPHILS % (AUTO) 2.5 % (0-1); EOSINOPHILS # (AUTO) 0.7 X10'3 (0-0.9); EOSINOPHILS % (AUTO) 7.8 % (0-6); LYMPHOCYTES # (AUTO) 1.5 X10'3 (1.1-4.8); LYMPHOCYTES % (AUTO) 18.1 % (21-51); MEAN CORPUSCULAR HEMOGLOBIN 29.7 PG (27.0-31.0); MEAN CORPUSCULAR HGB CONC 32.6 g/dL (33.0-36.5); MEAN PLATELET VOLUME 10.8 FL (7.4-10.4); MONOCYTES # (AUTO) 0.5 X10'3 (0-0.9); MONOCYTES % (AUTO) 6.3 % (2-12); NEUTROPHILS # (AUTO) 5.5 X10'3 (1.8-7.7); NEUTROPHILS % (AUTO) 65.3 % (42-75); PRE OP HEMATOCRIT 35.6 % (42.0-52.0); PRE OP HEMOGLOBIN 11.6 g/dL (14.0-17.9); PRE OP PLATELET COUNT 246 X10'3 (140-440)
[2020-10-28 10:35] LABS: UA COLLECTION TYPE CLN CATCH MIDSTREAM
[2020-10-28 10:36] LABS: MUCUS STRANDS FEW /LPF (Neg); SQUAMOUS EPITHELIAL CELL,UR FEW /LPF (FEW)
[2020-10-28 10:37] LABS: BACTERIA,URINE FEW /HPF (Neg); RBC,URINE 0-2 /HPF (0-2); WBC,URINE 0-4 /HPF (0-4)
[2020-10-28 10:42] LABS: ALBUMIN 3.5 G/DL (3.4-5.0); ALBUMIN/GLOBULIN RATIO 0.7 (1.1-1.5); ALKALINE PHOSPHATASE 101 IU/L (46-116); BLOOD UREA NITROGEN 73 MG/DL (7-18); BUN/CREATININE RATIO 9.5 (5.4-32.0); CALCIUM 8.9 MG/DL (8.5-10.1); CHLORIDE 111 MMOL/L (99-107); CREATININE 7.71 MG/DL (0.60-1.10); PRE OP ALT 20 U/L (30-65); PRE OP ANION GAP 14 (8-16); PRE OP AST 21 U/L (10-37); PRE OP BILIRUB, TOTAL 0.6 MG/DL (0.0-1.0); PRE OP GLUCOSE 99 MG/DL (70-104); PRE OP POTASSIUM 3.8 MMOL/L (3.4-5.1); PRE OP SODIUM 145 MMOL/L (135-145); TOTAL CARBON DIOXIDE 19.6 MMOL/L (24-32); TOTAL PROTEIN 8.7 G/DL (6.4-8.2); eGFR 7 ML/MIN
[~2020-11-03] VITALS: Ht 185.4 cm; Wt 108.9 kg
[2020-11-03] VITALS (10 sets, daily range): BP systolic 124–218; BP diastolic 57–131
[~2020-11-03 07:55] MED LIST changes: -CARV25TA2 PO; -HYDR-4069 PO; +HYDR4TAB55 PO; +MIRT15TA8 PO; +MORP-92 PO; +ceFAZolin 2gm in dextrose, iso 50 ML IV ONE; +famotidine 20mg tablet PO ONE; +normal saline 1000ml 1,000 ML IV SCH
[2020-11-03 08:54] LABS: ISTAT CREATININE 7.9 mg/dL (0.8-1.3); ISTAT HGB 11.9 g/dl (14.0-18.0); ISTAT IONIZED CALCIUM 1.19 mmol/L (1.03-1.32); ISTAT K 3.9 mmol/L (3.5-5.1); POC BUN/CREATININE RATIO 8.4 (5.4-32.0)
[2020-11-03] MEDS ORDERED: BUPIVAcaine/PF 2.5 mg/ml (0.25%) 30ml vial ONE (08:57)
[2020-11-03] MEDS ORDERED: sevoflurane 250ml liquid IH ONE (09:00)
[2020-11-03] MEDS ORDERED: etomidate 2mg/ml inj. ONE (09:04)
[2020-11-03] MEDS ORDERED: hydrALAZINE 20mg/ml inj. IV PRN (09:05)
[2020-11-03] MEDS ORDERED: rocuronium 10mg/ml inj IV ONE (09:05)
[2020-11-03] MEDS ORDERED: labetalol 20mg/4ml (5mg/ml) syringe IV PRN (09:05)
[2020-11-03] MEDS ORDERED: midazolam 2 mg/2 ml injection ONE (09:05)
[2020-11-03] MEDS ORDERED: fentaNYL/PF 50MCG/1 ML 2ML syringe ONE (09:05)
[2020-11-03] MEDS ORDERED: morphine 2 MG/ML inj. syringe IV PRN (09:05)
[2020-11-03] MEDS ORDERED: ringers solution, lacted 1,000 ML IV SCH (09:05)
[2020-11-03] MEDS ORDERED: ondansetron/PF 4mg/2ml inj IV PRN (09:05)
[2020-11-03] MEDS ORDERED: fentaNYL/PF 50MCG/1 ML 2ML syringe IV PRN (09:05)
--- NOTE | 2020-11-03 09:17 | NUR ---
ON ARRIVAL, PT C/O 07/03 ALL OVER PAIN. STATES UNABLE TO TAKE HIS PAIN MEDS THIS AM BECAUSE THEY MAKE HIM NAUSEOUS/VOMITING ON AN EMPTY STOMACH. OFFERED PRE-OP PAIN MEDS AND PT STATED "ITS OKAY". PT TAKEN SHORTLY AFTER TO THE OR, [facility] CALLED AND NOTIFIED OF EARLIER SURGERY AND SCIENTIFIC SOFTWARE DEVELOPER TIME Addendum: 11/03/20 at 0935 by Lorri Baltazar RN Amended: Links added.
[2020-11-03] MEDS ORDERED: glycopyrrolate 0.2mg/ml inj ONE (09:23)
[2020-11-03] MEDS ORDERED: neostigmine methylsulfate 1 MG/ML 10ml vial ONE (09:23)
[2020-11-03] MEDS ORDERED: ondansetron/PF 4mg/2ml inj ONE (09:23)
[2020-11-03] MEDS ORDERED: dexamethasone sod phosphate 4mg/ml inj. ONE (09:24)
[2020-11-03] MEDS ORDERED: hydrALAZINE 20mg/ml inj. IV ONE (09:38)
[2020-11-03] MEDS ORDERED: bacitracin 15gm ointment TP ONE (09:43)
[2020-11-03] MEDS ORDERED: labetalol 20mg/4ml (5mg/ml) syringe IV ONE ×2 (09:49)
--- NOTE | 2020-11-03 09:56 | NUR ---
Received from OR via KAROLINE , accompanied by Anesthesiologist DARBY and report given by Anesthesiolgist. PATIENT WITH 20GPIV IN RIGHT UE, RUNNING LR AT 100. PATIENT WITH ONE UMBILICAL DRESSING AND A SINGLE BANDAID THAT IS CDI. VSS 10L MASK ON WITH 100% SATURATIONS. Addendum: 11/03/20 at 1007 by Ayaan Arguello RN, RN Amended: Links added.
[2020-11-03] MEDS: morphine 4 MG/ML inj SYRINge IV PRN ×2 (10:08→10:18)
[2020-11-03] MEDS: fentaNYL/PF 50MCG/1 ML 2ML syringe IV PRN ×2 (10:09→10:18)
[2020-11-03] MEDS ORDERED: acetaminophen 1,000mg/100ml IV 100 ML IV PRN (10:35)
[2020-11-03] MEDS ORDERED: oxyCODONE/APAP 10/325mg tablet PO ONE (10:35)
[2020-11-03] MEDS: HYDROmorphone/PF 0.2 MG/ML SYRINGE IV PRN ×2 (10:42→10:56)
--- NOTE | 2020-11-03 11:26 | NUR ---
I HAVE REVIEWED D/C INSTRUCTIONS WITH PATIENT AND FAMILY AND THEY HAVE VERBALIZED UNDERSTANDING. PATIENT D/C HOME WITH ALL BELONGINGS AND FAMILY GAVE TRANSPORT HOME.ALL DC INSTRUCTIONS COVERED WITH PATIENT AND ALL QUESTIONS ANSWERED. VSS. PAIN AT A TOLERABLE LEVEL. DRESSINGS TO ABDOMEN ARE ALL CDI. PICKED PATIENT UP AND DROVE HIM HOME. Addendum: 11/03/20 at 1132 by Ayaan Arguello RN, RN Amended: Links added.
== END 2020-11-03 11:26 | disposition home or self-care (01) ==
LOC: PAS 07:55
PROVIDERS: ATTEND Surgery
DX: Z49.02 Encounter for fitting and adjustment of peritoneal dialysis catheter (principal); I25.2 Old myocardial infarction; I12.9 Hypertensive chronic kidney disease with stage 1 through stage 4 chronic kidney disease, or unspecified chronic kidney disease; N18.4 Chronic kidney disease, stage 4 (severe); Z95.5 Presence of coronary angioplasty implant and graft; Z90.49 Acquired absence of other specified parts of digestive tract; Z98.890 Other specified postprocedural states; F32.9 Major depressive disorder, single episode, unspecified; M19.90 Unspecified osteoarthritis, unspecified site; Z79.899 Other long term (current) drug therapy
CPT/HCPCS: 36415; 49422; 80047; 80053; 81001; 85025; 87635; J0131; J0360; J1100; J1170; J2250; J2270; J2405; J2710; J3010; J3490; J7030; A4215; A4618; A7000

== ENCOUNTER 2022-02-23 08:39 | Outpatient (CLI) | payer MEDICARE, MEDICAID ==
[~2022-02-23] VITALS: Ht 185.4 cm; Wt 95.7 kg
[2022-02-23] VITALS (7 sets, daily range): BP systolic 95–155; BP diastolic 62–99
[~2022-02-23 08:39] MED LIST changes: +MIRT-87 PO; -MIRT15TA8 PO; -ceFAZolin 2gm in dextrose, iso 50 ML IV ONE; -famotidine 20mg tablet PO ONE; -normal saline 1000ml 1,000 ML IV SCH
[2022-02-23] MEDS ORDERED: aminophylline 500mg/20ml vial IV PRN (11:15)
[2022-02-23] MEDS ORDERED: atropine 0.1mg/ml 10ml syringe IV PRN (11:15)
[2022-02-23] MEDS ORDERED: nitroGLYCERIN 0.4mg SUBLingual tab SL PRN (11:15)
[2022-02-23] MEDS ORDERED: normal saline 500ml IV soln 500 ML IV ONE (11:15)
[2022-02-23] MEDS ORDERED: regadenoson 0.4mg/5ml syringe IV ONE (11:15)
[2022-02-23] MEDS ORDERED: metoprolol tartrate 1mg/ml inj IV PRN (11:15)
== END 2022-02-23 23:59 | disposition home or self-care (01) ==
LOC: CARD DIAG 08:39
PROVIDERS: ATTEND Internal Medicine Cardiovascular Disease
DX: Z01.810 Encounter for preprocedural cardiovascular examination (principal); I05.8 Other rheumatic mitral valve diseases; I10 Essential (primary) hypertension
CPT/HCPCS: 78452; 93017; 93306; A9500; J0280; J2785; J7040

== ENCOUNTER 2022-10-16 06:37 | Day surgery (SDC) | payer OTHER ==
[2022-10-13 12:09] LABS: BASOPHILS # (AUTO) 0.1 X10'3 (0-0.2); HEMOGLOBIN 11.7 g/dl (14.0-17.9); MONOCYTES # (AUTO) 0.7 X10'3 (0-0.9); NEUTROPHILS # (AUTO) 2.8 X10'3 (1.8-7.7)
[2022-10-13 12:11] LABS: BASOPHILS % (AUTO) 2.3 % (0-1); EOSINOPHILS # (AUTO) 0.3 X10'3 (0-0.9); HEMATOCRIT 34.9 % (42.0-52.0); LYMPHOCYTES # (AUTO) 0.9 X10'3 (1.1-4.8); LYMPHOCYTES % (AUTO) 18.3 % (21-51); MEAN CORPUSCULAR HEMOGLOBIN 30.7 PG (27.0-31.0); MEAN CORPUSCULAR HGB CONC 33.5 g/dL (33.0-36.5); MEAN CORPUSCULAR VOLUME 91.4 FL (78-98); MEAN PLATELET VOLUME 9.4 FL (7.4-10.4); MONOCYTES % (AUTO) 14.4 % (2-12); PLATELET COUNT 178 X10'3 (140-440); RED BLOOD COUNT 3.82 X10'6 (4.70-6.10); RED CELL DISTRIBUTION WIDTH 17.4 % (11.5-14.5); WHITE BLOOD COUNT 4.8 X10'3 (4.5-11.0)
[2022-10-13 12:19] LABS: ALBUMIN 3.2 G/DL (3.4-5.0); ANION GAP 5 (8-16); BLOOD UREA NITROGEN 26 MG/DL (7-18); BUN/CREATININE RATIO 3.9 (5.4-32.0); CALCIUM 9.3 MG/DL (8.5-10.1); CHLORIDE 95 MMOL/L (99-107); CREATININE 6.71 MG/DL (0.60-1.10); GLUCOSE 93 MG/DL (70-104); SODIUM 141 MMOL/L (135-145); eGFR 8 ML/MIN
[2022-10-13 12:21] LABS: APTT 28 SECONDS (22-32)
[2022-10-13 12:36] LABS: TOTAL CARBON DIOXIDE 41.1 MMOL/L (24-32)
[2022-10-16] VITALS (11 sets, daily range): BP systolic 138–179; BP diastolic 72–106
[~2022-10-16] VITALS: Ht 185.4 cm; Wt 100.5 kg
[2022-10-16] MEDS ORDERED: diphenhydrAMINE 25mg capsule PO PRN (06:55)
[2022-10-16] MEDS ORDERED: sodium bicarbonate 1meq/ml syr 150 ML in dextrose 5%-water 850 ML IV ONE (06:55)
[2022-10-16] MEDS ORDERED: normal saline 1,000 ML IV SCH (06:55)
[2022-10-16] MEDS ORDERED: LORazepam 0.5 MG tablet PO PRN (06:55)
[2022-10-16] MEDS ORDERED: ONDA4TAB12 (07:10)
[2022-10-16] MEDS ORDERED: HYDR-3972 PO (07:10)
[2022-10-16] MEDS ORDERED: [UNRECOGNIZED DRUG - CODE] (07:10)
[2022-10-16] MEDS ORDERED: CINA30TA7 PO (07:10)
[2022-10-16] MEDS ORDERED: LOSA50TA64 PO (07:10)
[2022-10-16] MEDS ORDERED: PHO667C PO (07:10)
[2022-10-16] MEDS ORDERED: FLO0.4C PO (07:10)
[2022-10-16] MEDS ORDERED: CARV25TA3 PO (07:10)
[2022-10-16] MEDS ORDERED: MSC30T PO (07:11)
[2022-10-16] MEDS ORDERED: NIFE30TA95 PO (07:18)
[2022-10-16] MEDS: acetylcysteine 200 MG/ml 4ml vial PO PRN ×2 (07:54→14:24)
[2022-10-16] MEDS ORDERED: verapamil 2.5 mg/ml inj IV ONE (09:54)
[2022-10-16] MEDS ORDERED: LIDOcaine 1% (10mg/ml) 2ml vial ONE (09:54)
[2022-10-16] MEDS ORDERED: midazolam 1 mg/ML 2ml injection ONE ×2 (09:55→10:59)
[2022-10-16] MEDS ORDERED: fentaNYL/PF 50MCG/1 ML 2ML syringe ONE (09:55)
[2022-10-16] MEDS ORDERED: iohexol 350MG/ML 100ml bottle IV ONE (09:55)
[2022-10-16] MEDS ORDERED: heparin 1,000unit/ml 10ml vial 10 ML ONE (09:55)
[2022-10-16] MEDS ORDERED: nitroGLYCERIN-Tridil 50MG/D5W 250 ML IV ONE (09:55)
--- NOTE | 2022-10-16 10:15 | NUR ---
Patient to lab systems analyst. Report given to Lorri MOSLEY.
[2022-10-16] MEDS ORDERED: iohexol 350 MG/ML 50ML vial IV ONE (11:18)
[2022-10-16 12:22] LABS: ISTAT Hct MIX 31 %PCV (42-52); ISTAT O2 SATURATION MIX VENOUS 71 % (60-80); ISTAT SOURCE BLNK
[2022-10-16 12:22] LABS: ISTAT HGB ART 10.5 g/dl (14.0-17.9); ISTAT Hct ART 31 %PCV (42-52); ISTAT O2 SATURATION ARTERIAL 97 % (95-98); ISTAT SOURCE BLNK
--- NOTE | 2022-10-16 12:30 | NUR ---
Patient back from laborer shipyard. Report received from MELANY Darling. Right radial site stable.
[2022-10-16] MEDS ORDERED: hydrALAZINE 20mg/ml inj. IV PRN ×2 (12:45→17:20)
[2022-10-16] MEDS ORDERED: carVEDilol 12.5mg tablet PO ONE (17:28)
== END 2022-10-16 18:15 | disposition home or self-care (01) ==
LOC: SSTAY O 06:37
PROVIDERS: ATTEND Internal Medicine Cardiovascular Disease
DX: I25.10 Atherosclerotic heart disease of native coronary artery without angina pectoris (principal); T82.855A Stenosis of coronary artery stent, initial encounter; I25.2 Old myocardial infarction; I12.9 Hypertensive chronic kidney disease with stage 1 through stage 4 chronic kidney disease, or unspecified chronic kidney disease; N18.4 Chronic kidney disease, stage 4 (severe); N40.0 Benign prostatic hyperplasia without lower urinary tract symptoms; F32.9 Major depressive disorder, single episode, unspecified; G47.00 Insomnia, unspecified; E78.5 Hyperlipidemia, unspecified; I42.0 Dilated cardiomyopathy; G89.29 Other chronic pain; Z79.899 Other long term (current) drug therapy; Z95.5 Presence of coronary angioplasty implant and graft; Z98.890 Other specified postprocedural states; Y84.0 Cardiac catheterization as the cause of abnormal reaction of the patient, or of later complication, without mention of misadventure at the time of the procedure; Y92.89 Other specified places as the place of occurrence of the external cause
CPT/HCPCS: 36415; 76937; 80048; 82803; 85014; 85025; 85610; 85730; 93005; 93460; 99152; 99153; A6258; C1751; C1769; C1894; J0360; J1644; J2250; J3010; J3490; J7030; J7070; Q0163; Q9967; A6402; C1725

== ENCOUNTER 2022-12-23 15:48 | Inpatient (IN) | payer MEDICARE, MEDICAID ==
[~2022-12-23] VITALS: Ht 185.4 cm; Wt 95.2 kg
[2022-12-23] MEDS: docusate sod 100mg capsule PO SCH (02:00)
[~2022-12-23 15:48] MED LIST changes: +ASPI81TA53 PO; +CARV25TA3 PO; +CINA30TA7 PO; +FAMO40TA7 PO; +FLO0.4C PO; +HYDR-3972 PO; -HYDR4TAB55 PO; -MORP-92 PO; +MSC30T PO; +NIFE30TA95 PO; +ONDA4TAB12 PO; +PANT40TA54 PO; +ROSU20TA31 PO
[2022-12-23 16:55] LABS: BASOPHILS # (AUTO) 0.1 X10'3 (0-0.2); EOSINOPHILS # (AUTO) 2.2 X10'3 (0-0.9); EOSINOPHILS % (AUTO) 20.6 % (0-6); HEMATOCRIT 24.2 % (42.0-52.0); LYMPHOCYTES # (AUTO) 1.2 X10'3 (1.1-4.8); LYMPHOCYTES % (AUTO) 10.8 % (21-51); MEAN CORPUSCULAR HEMOGLOBIN 31.2 PG (27.0-31.0); MEAN CORPUSCULAR HGB CONC 33.1 g/dL (33.0-36.5); MEAN CORPUSCULAR VOLUME 94.4 FL (78-98); MEAN PLATELET VOLUME 8.9 FL (7.4-10.4); MONOCYTES # (AUTO) 1.5 X10'3 (0-0.9); MONOCYTES % (AUTO) 13.5 % (2-12); NEUTROPHILS # (AUTO) 5.9 X10'3 (1.8-7.7); NEUTROPHILS % (AUTO) 54.1 % (42-75); PLATELET COUNT 305 X10'3 (140-440); RED BLOOD COUNT 2.57 X10'6 (4.70-6.10); RED CELL DISTRIBUTION WIDTH 18.5 % (11.5-14.5); WHITE BLOOD COUNT 10.8 X10'3 (4.5-11.0)
[2022-12-23 17:05] LABS: ALANINE AMINOTRANSFERASE 8 U/L (12-78); ALBUMIN 2.3 G/DL (3.4-5.0); ALBUMIN/GLOBULIN RATIO 0.5 (1.1-1.5); ALKALINE PHOSPHATASE 187 IU/L (46-116); ANION GAP 9 (8-16); ASPARTATE AMINO TRANSFERASE 37 U/L (10-37); BILIRUBIN,TOTAL 0.6 MG/DL (0.1-1.0); BLOOD UREA NITROGEN 59 MG/DL (7-18); BUN/CREATININE RATIO 6.5 (10.0-20.0); CHLORIDE 102 MMOL/L (99-107); CREATININE 9.03 MG/DL (0.60-1.10); GLUCOSE 95 MG/DL (70-104); POTASSIUM 4.8 MMOL/L (3.5-5.1); SODIUM 139 MMOL/L (135-145); TOTAL CARBON DIOXIDE 27.7 MMOL/L (24-32); TOTAL CELLS COUNTED 100; TOTAL PROTEIN 6.9 G/DL (6.4-8.2); eGFR 6 ML/MIN
[2022-12-23 17:06] LABS: ANISOCYTOSIS 2+; PLATELET ESTIMATE NORMAL
[2022-12-23 17:07] LABS: POLYCHROMASIA 1+
[2022-12-23 17:08] LABS: HYPOCHROMASIA 1+; NUCLEATED RED BLOOD CELLS 1 /100WBC (0-0)
[2022-12-23 17:09] LABS: ELLIPTOCYTES 1+; SPHEROCYTES FEW
[2022-12-23] MEDS ORDERED: furosemide 10 MG/1 ML 10ml inj IV ONE (17:45)
[2022-12-23] MEDS ORDERED: heparin 1,000 units/ml 10ml inj IV ONE (18:20)
[2022-12-23] MEDS ORDERED: albumin (human) 25% 100ml IV 100 ML IV PRN (18:20)
[2022-12-23] MEDS ORDERED: vancomycin/NS 1 GM ADD-VANTAGE 250 ML IV ONE (18:25)
[2022-12-23] MEDS ORDERED: heparin 1,000 units/ml 10ml inj HE ONE ×2 (18:25)
[2022-12-23] MEDS ORDERED: EPOETIN ALFA-EPBX 20,000 UNIT/ML 1 ML MDV IV ONE (18:25)
[2022-12-23] MEDS: cefepime 1GM/NS ADD-VANTAGE 100 ML IV SCH (18:25)
--- NOTE | 2022-12-23 18:45 | NUR ---
SVETA MALAVE OR [facility] PHONE NUMBER TO CALL FOR UPDATES [phone]
[2022-12-23] MEDS ORDERED: magnesium 4gm in 100ml NS 100 ML IV PRN (19:20)
[2022-12-23] MEDS ORDERED: magnesium Cl slow-release 64mg tablet PO PRN (19:20)
[2022-12-23] MEDS ORDERED: acetaminophen 325mg tablet PO PRN ×2 (19:20)
[2022-12-23] MEDS ORDERED: potassium Cl 40MEQ/1/2NS 520ml 520 ML IV PRN (19:20)
[2022-12-23] MEDS ORDERED: mag hydrox/Alum hydrox/simeth 30ml oral suspension PO PRN (19:20)
[2022-12-23] MEDS ORDERED: magnesium hydroxide 30ml (MOM) UD suspension PO PRN (19:20)
[2022-12-23] MEDS ORDERED: ondansetron/PF 4mg/2ml inj IV PRN (19:20)
[2022-12-23] MEDS ORDERED: potassium Cl 20 mEq SR tablet PO PRN ×2 (19:20)
--- NOTE | 2022-12-23 19:28 | NUR ---
Per dialysis nurse, IV ABX, cefepime, and vanco not administered at this time r/t pending dialysis. Per diaysis nurse medications will dialyze out.
[2022-12-23] MEDS ORDERED: ASPI-1053 PO (19:41)
[2022-12-23] MEDS ORDERED: LOSA50TA64 PO (19:42)
[2022-12-23] MEDS: heparin, porcine 5000 units/ml vial SQ SCH (20:00)
[2022-12-23] MEDS: furosemide 40mg/4ml inj IV SCH (20:00)
[2022-12-23 20:03] LABS: D-DIMER 10.33 MG/L FEU (0-0.50)
--- NOTE | 2022-12-24 00:35 | NUR ---
Pt arrived from [facility], escorted by PARALEGAL SPECIALIST.
[2022-12-24 01:11] VITALS: BP 137/81
--- NOTE | 2022-12-24 01:26 | NUR ---
Dr. Nelson paged: "Pt: Ghassan Sood just arrived at room after HD. Temp 101.6 oral. c/o pain 06/03 w/ no PRN meds ordered. 137/81, 118, 24, 95% RA"
[2022-12-24] MEDS: cefepime 1GM/NS ADD-VANTAGE 100 ML IV SCH ×2 (01:58→08:22)
[2022-12-24] MEDS: heparin, porcine 5000 units/ml vial SQ SCH ×3 (02:00→21:01)
[2022-12-24] MEDS: furosemide 40mg/4ml inj IV SCH ×3 (02:00→21:03)
[2022-12-24] MEDS ORDERED: HYDROcodone/acetaminophen 10/325mg tab PO PRN ×2 (04:30→08:10)
[2022-12-24] MEDS ORDERED: ondansetron 4mg rapidly disintigrating tab PO PRN (04:30)
[2022-12-24 06:33] LABS: BASOPHILS # (AUTO) 0.1 X10'3 (0-0.2); BASOPHILS % (AUTO) 1.3 % (0-1); EOSINOPHILS # (AUTO) 1.6 X10'3 (0-0.9); EOSINOPHILS % (AUTO) 16.8 % (0-6); HEMATOCRIT 22.7 % (42.0-52.0); HEMOGLOBIN 7.4 g/dl (14.0-17.9); LYMPHOCYTES # (AUTO) 0.9 X10'3 (1.1-4.8); LYMPHOCYTES % (AUTO) 10.1 % (21-51); MEAN CORPUSCULAR HEMOGLOBIN 30.7 PG (27.0-31.0); MEAN CORPUSCULAR HGB CONC 32.5 g/dL (33.0-36.5); MEAN CORPUSCULAR VOLUME 94.5 FL (78-98); MEAN PLATELET VOLUME 8.9 FL (7.4-10.4); MONOCYTES # (AUTO) 1.2 X10'3 (0-0.9); MONOCYTES % (AUTO) 12.8 % (2-12); NEUTROPHILS # (AUTO) 5.5 X10'3 (1.8-7.7); PLATELET COUNT 278 X10'3 (140-440); RED BLOOD COUNT 2.41 X10'6 (4.70-6.10); RED CELL DISTRIBUTION WIDTH 17.7 % (11.5-14.5); WHITE BLOOD COUNT 9.4 X10'3 (4.5-11.0)
[2022-12-24 06:34] LABS: ALANINE AMINOTRANSFERASE 14 U/L (12-78); ALBUMIN 2.1 G/DL (3.4-5.0); ALBUMIN/GLOBULIN RATIO 0.5 (1.1-1.5); ALKALINE PHOSPHATASE 192 IU/L (46-116); ANION GAP 7 (8-16); ASPARTATE AMINO TRANSFERASE 40 U/L (10-37); BILIRUBIN,TOTAL 0.8 MG/DL (0.1-1.0); BLOOD UREA NITROGEN 33 MG/DL (7-18); BUN/CREATININE RATIO 5.4 (10.0-20.0); CALCIUM 8.1 MG/DL (8.5-10.1); CHLORIDE 104 MMOL/L (99-107); CREATININE 6.09 MG/DL (0.60-1.10); GLUCOSE 80 MG/DL (70-104); POTASSIUM 4.8 MMOL/L (3.5-5.1); SODIUM 139 MMOL/L (135-145); TOTAL CARBON DIOXIDE 28.4 MMOL/L (24-32); TOTAL PROTEIN 6.2 G/DL (6.4-8.2); eGFR 9 ML/MIN
[2022-12-24 07:35] VITALS: BP 143/57
[2022-12-24] MEDS ORDERED: CefTRIAXone 2gm/D5W 50ml BAG 50 ML IV SCH (08:00)
[2022-12-24] MEDS: cinacalcet 30mg tablet PO SCH ×2 (08:22→21:01)
[2022-12-24] MEDS: ROSUVASTATIN CALCIUM 5 MG TABLET PO SCH (08:22)
[2022-12-24] MEDS: NIFEdipine XL 30mg tablet PO SCH (08:23)
[2022-12-24] MEDS: aspirin 81mg tab.chew PO SCH (08:23)
[2022-12-24] MEDS: carVEDilol 12.5mg tablet PO SCH ×2 (08:23→21:01)
[2022-12-24] MEDS: famotidine 20mg tablet PO SCH (08:23)
[2022-12-24] MEDS: losartan 50mg tablet PO SCH (08:24)
[2022-12-24] MEDS: tamsulosin 0.4mg capsule PO SCH ×2 (08:24→21:00)
[2022-12-24] MEDS: docusate sod 100mg capsule PO SCH ×2 (08:24→21:00)
[2022-12-24] MEDS: pantoprazole 40mg Tablet.DR PO SCH (08:24)
[2022-12-24] MEDS ORDERED: iohexol 350MG/ML 100ml bottle IV ONE (10:51)
[2022-12-24 12:30] VITALS: BP 115/52
[2022-12-24] MEDS: HYDROcodone/acetaminophen 10/325mg tab PO PRN ×3 (14:51→23:34)
[2022-12-24 15:12] VITALS: BP 90/47
[2022-12-24 19:00] VITALS: BP 95/55
[2022-12-24] MEDS ORDERED: PEG 3350/Na sulf,bicarb,Cl/KCl oral sol 4 liter bottle PO ONE (20:10)
[2022-12-24 23:00] VITALS: BP 110/39
[2022-12-25] VITALS (18 sets, daily range): BP systolic 92–132; BP diastolic 36–75
[2022-12-25 06:58] LABS: BASOPHILS # (AUTO) 0.2 X10'3 (0-0.2); BASOPHILS % (AUTO) 1.6 % (0-1); EOSINOPHILS # (AUTO) 2.6 X10'3 (0-0.9); EOSINOPHILS % (AUTO) 27.1 % (0-6); HEMOGLOBIN 7.6 g/dl (14.0-17.9); LYMPHOCYTES # (AUTO) 1.1 X10'3 (1.1-4.8); LYMPHOCYTES % (AUTO) 11.4 % (21-51); MEAN CORPUSCULAR HEMOGLOBIN 31.1 PG (27.0-31.0); MEAN CORPUSCULAR HGB CONC 33.2 g/dL (33.0-36.5); MEAN CORPUSCULAR VOLUME 93.6 FL (78-98); MONOCYTES # (AUTO) 1.2 X10'3 (0-0.9); MONOCYTES % (AUTO) 12.4 % (2-12); NEUTROPHILS # (AUTO) 4.5 X10'3 (1.8-7.7); NEUTROPHILS % (AUTO) 47.5 % (42-75); PLATELET COUNT 323 X10'3 (140-440); RED BLOOD COUNT 2.46 X10'6 (4.70-6.10); RED CELL DISTRIBUTION WIDTH 17.8 % (11.5-14.5); WHITE BLOOD COUNT 9.4 X10'3 (4.5-11.0)
[2022-12-25 07:21] LABS: ALANINE AMINOTRANSFERASE 11 U/L (12-78); ALBUMIN 2.2 G/DL (3.4-5.0); ALBUMIN/GLOBULIN RATIO 0.5 (1.1-1.5); ALKALINE PHOSPHATASE 186 IU/L (46-116); ANION GAP 11 (8-16); ASPARTATE AMINO TRANSFERASE 34 U/L (10-37); BILIRUBIN,TOTAL 0.8 MG/DL (0.1-1.0); BLOOD UREA NITROGEN 48 MG/DL (7-18); BUN/CREATININE RATIO 6.1 (10.0-20.0); CALCIUM 7.8 MG/DL (8.5-10.1); CHLORIDE 97 MMOL/L (99-107); GLUCOSE 92 MG/DL (70-104); POTASSIUM 5.1 MMOL/L (3.5-5.1); SODIUM 133 MMOL/L (135-145); TOTAL CARBON DIOXIDE 25.4 MMOL/L (24-32); TOTAL PROTEIN 6.6 G/DL (6.4-8.2); eGFR 7 ML/MIN
[2022-12-25] MEDS: cefepime 1GM/NS ADD-VANTAGE 100 ML IV SCH (07:40)
[2022-12-25] MEDS: aspirin 81mg tab.chew PO SCH (07:41)
[2022-12-25] MEDS: pantoprazole 40mg Tablet.DR PO SCH (07:41)
[2022-12-25] MEDS: ROSUVASTATIN CALCIUM 5 MG TABLET PO SCH (07:41)
[2022-12-25] MEDS: docusate sod 100mg capsule PO SCH ×2 (07:41→20:17)
[2022-12-25] MEDS: famotidine 20mg tablet PO SCH (07:42)
[2022-12-25] MEDS: HYDROcodone/acetaminophen 10/325mg tab PO PRN ×3 (07:42→20:17)
[2022-12-25] MEDS: cinacalcet 30mg tablet PO SCH ×2 (07:42→20:18)
[2022-12-25] MEDS: furosemide 40mg/4ml inj IV SCH ×2 (07:42→20:18)
[2022-12-25] MEDS: carVEDilol 12.5mg tablet PO SCH ×2 (07:42→20:18)
[2022-12-25] MEDS: tamsulosin 0.4mg capsule PO SCH ×2 (07:42→20:18)
[2022-12-25] MEDS: NIFEdipine XL 30mg tablet PO SCH (07:42)
[2022-12-25] MEDS: losartan 50mg tablet PO SCH (07:43)
[2022-12-25] MEDS ORDERED: EPOETIN ALFA-EPBX 20,000 UNIT/ML 1 ML MDV IV ONE (08:00)
[2022-12-25] MEDS ORDERED: albumin (human) 25% 100ml IV 100 ML IV PRN (08:00)
[2022-12-25] MEDS ORDERED: heparin 1,000 units/ml 10ml inj HE ONE ×2 (08:00)
[2022-12-25 09:58] LABS: NUCLEATED RED BLOOD CELLS 1 /100WBC (0-0); TOTAL CELLS COUNTED 100
[2022-12-25 10:02] LABS: ANISOCYTOSIS 1+; PLATELET ESTIMATE NORMAL
--- NOTE | 2022-12-25 11:49 | NUR ---
PATIENT LEFT FOR GI LAB TO HAVE A COLONOSCOPY WITH DR LEUVANO. TELE LAB PACK CHEMIST NOTIFIED WELL CHARGE NURSE. PT LEFT VIA WHEELCHAIR WITH GI LAB STAFF
[2022-12-25] MEDS ORDERED: fentaNYL/PF 50MCG/1 ML 2ML syringe ONE (12:04)
[2022-12-25] MEDS ORDERED: LIDOcaine Viscous 15ml cup ONE (12:05)
[2022-12-25] MEDS ORDERED: MIDAZolam 1 MG/ML 5ML VIAL ONE (12:05)
--- NOTE | 2022-12-25 16:12 | NUR ---
transferred pt up to 4th floor HD room. Reported off to facility maintenance technician, as nurse and ipad are not getting electrical test engineer. vss a/ox3 bp are soft coming out of colonoscopy and taurus made aware
--- NOTE | 2022-12-25 20:08 | NUR ---
Late entry at 1943.de-access a dialysis ports in 4008. Flushes each port with 10ml of saline before 1.9ml of heparin into each port. Capped with new caps.
[2022-12-25] MEDS: heparin, porcine 5000 units/ml vial SQ SCH (20:17)
[2022-12-26] MEDS: HYDROcodone/acetaminophen 10/325mg tab PO PRN ×5 (00:19→23:22)
[2022-12-26 02:30] VITALS: BP 96/59
[2022-12-26 07:00] VITALS: BP 107/56
[2022-12-26 07:15] LABS: BASOPHILS # (AUTO) 0.2 X10'3 (0-0.2); BASOPHILS % (AUTO) 1.3 % (0-1); MEAN PLATELET VOLUME 8.7 FL (7.4-10.4); RED CELL DISTRIBUTION WIDTH 17.8 % (11.5-14.5)
[2022-12-26 07:19] LABS: EOSINOPHILS # (AUTO) 2.2 X10'3 (0-0.9); EOSINOPHILS % (AUTO) 17.9 % (0-6); HEMATOCRIT 24.3 % (42.0-52.0); HEMOGLOBIN 7.7 g/dl (14.0-17.9); LYMPHOCYTES % (AUTO) 8.1 % (21-51); MEAN CORPUSCULAR HEMOGLOBIN 30.2 PG (27.0-31.0); MEAN CORPUSCULAR HGB CONC 31.8 g/dL (33.0-36.5); MEAN CORPUSCULAR VOLUME 94.8 FL (78-98); MONOCYTES # (AUTO) 1.4 X10'3 (0-0.9); MONOCYTES % (AUTO) 11.4 % (2-12); NEUTROPHILS # (AUTO) 7.5 X10'3 (1.8-7.7); NEUTROPHILS % (AUTO) 61.3 % (42-75); PLATELET COUNT 372 X10'3 (140-440); RED BLOOD COUNT 2.57 X10'6 (4.70-6.10); WHITE BLOOD COUNT 12.3 X10'3 (4.5-11.0)
[2022-12-26 07:50] LABS: ALBUMIN 2.3 G/DL (3.4-5.0); ALBUMIN/GLOBULIN RATIO 0.5 (1.1-1.5); ALKALINE PHOSPHATASE 193 IU/L (46-116); ANION GAP 10 (8-16); ASPARTATE AMINO TRANSFERASE 23 U/L (10-37); BILIRUBIN,TOTAL 0.6 MG/DL (0.1-1.0); BLOOD UREA NITROGEN 37 MG/DL (7-18); BUN/CREATININE RATIO 5.5 (10.0-20.0); CALCIUM 7.7 MG/DL (8.5-10.1); CHLORIDE 100 MMOL/L (99-107); CREATININE 6.68 MG/DL (0.60-1.10); GLUCOSE 104 MG/DL (70-104); POTASSIUM 4.6 MMOL/L (3.5-5.1); SODIUM 135 MMOL/L (135-145); TOTAL CARBON DIOXIDE 24.7 MMOL/L (24-32); TOTAL PROTEIN 6.8 G/DL (6.4-8.2); eGFR 8 ML/MIN
[2022-12-26 07:59] LABS: ALANINE AMINOTRANSFERASE 12 U/L (12-78)
[2022-12-26] MEDS: docusate sod 100mg capsule PO SCH ×2 (08:00→21:49)
[2022-12-26] MEDS: NIFEdipine XL 30mg tablet PO SCH (08:45)
[2022-12-26] MEDS: aspirin 81mg tab.chew PO SCH (08:45)
[2022-12-26] MEDS: carVEDilol 12.5mg tablet PO SCH ×2 (08:47→21:53)
[2022-12-26] MEDS: losartan 50mg tablet PO SCH (08:47)
[2022-12-26] MEDS: tamsulosin 0.4mg capsule PO SCH ×2 (08:48→21:50)
[2022-12-26] MEDS: pantoprazole 40mg Tablet.DR PO SCH (08:48)
[2022-12-26] MEDS: cinacalcet 30mg tablet PO SCH ×2 (08:48→21:49)
[2022-12-26] MEDS: furosemide 40mg/4ml inj IV SCH ×2 (08:49→21:50)
[2022-12-26] MEDS: cefepime inj. 0.5 GM in normal saline 100ml IV soln 105 ML IV SCH (08:49)
[2022-12-26] MEDS: heparin, porcine 5000 units/ml vial SQ SCH ×2 (08:49→21:52)
[2022-12-26] MEDS: ROSUVASTATIN CALCIUM 5 MG TABLET PO SCH (08:53)
[2022-12-26 12:00] VITALS: BP 111/71
--- NOTE | 2022-12-26 12:47 | NUR ---
Message: Sood 3013B, Pt has a BP of 84/48 (60). Pt is asymptomatic but complains of increased leg pain due to swelling. Valentino [id number]
--- NOTE | 2022-12-26 12:56 | NUR ---
Pt had a couple low BP checks this afternoon. I reached out to Dr Armstrong as he was the listed hospitalist. After contact and checking again later pt's BP alice to 111/71. Will continue to monitor pt.
[2022-12-26 15:00] VITALS: BP 84/51
[2022-12-26 16:00] VITALS: BP 104/56
--- NOTE | 2022-12-26 16:52 | NUR ---
Pt had a low BP earlier at 1500 of 84/51. Pt was asymptomatic. I rechecked the BP and it was 104/56. Will continue to monitor.
[2022-12-26] MEDS: zolpidem 5mg tablet PO PRN (21:49)
[2022-12-26 22:00] VITALS: BP 119/72
[2022-12-27] VITALS (8 sets, daily range): BP systolic 111–137; BP diastolic 58–75
[2022-12-27] MEDS ORDERED: EPOETIN ALFA-EPBX 20,000 UNIT/ML 1 ML MDV IV ONE (03:55)
[2022-12-27] MEDS ORDERED: heparin 1,000 units/ml 10ml inj HE ONE ×2 (03:55)
[2022-12-27] MEDS ORDERED: normal saline 1000ml 250 ML IV PRN (03:55)
[2022-12-27] MEDS ORDERED: heparin 1,000unit/ml 10ml vial 10 ML IV ONE (03:55)
[2022-12-27] MEDS: HYDROcodone/acetaminophen 10/325mg tab PO PRN ×4 (05:35→22:18)
--- NOTE | 2022-12-27 06:39 | NUR ---
Patient in room PCU 3013. I have received report from Delbert MOSLEY and had the opportunity to ask questions and assume patient care.
[2022-12-27 07:34] LABS: BASOPHILS # (AUTO) 0.1 X10'3 (0-0.2); BASOPHILS % (AUTO) 0.8 % (0-1); EOSINOPHILS # (AUTO) 2.4 X10'3 (0-0.9); EOSINOPHILS % (AUTO) 20.4 % (0-6); HEMATOCRIT 22.3 % (42.0-52.0); LYMPHOCYTES # (AUTO) 0.9 X10'3 (1.1-4.8); LYMPHOCYTES % (AUTO) 7.6 % (21-51); MEAN CORPUSCULAR HEMOGLOBIN 29.8 PG (27.0-31.0); MEAN CORPUSCULAR HGB CONC 31.6 g/dL (33.0-36.5); MEAN CORPUSCULAR VOLUME 94.5 FL (78-98); MEAN PLATELET VOLUME 9.1 FL (7.4-10.4); MONOCYTES # (AUTO) 1.3 X10'3 (0-0.9); NEUTROPHILS # (AUTO) 7.2 X10'3 (1.8-7.7); NEUTROPHILS % (AUTO) 60.2 % (42-75); PLATELET COUNT 377 X10'3 (140-440); RED BLOOD COUNT 2.36 X10'6 (4.70-6.10); RED CELL DISTRIBUTION WIDTH 17.8 % (11.5-14.5); WHITE BLOOD COUNT 11.9 X10'3 (4.5-11.0)
--- NOTE | 2022-12-27 07:52 | NUR ---
Message: Barrie [id number], Pt has a critical lab value Hgb - 7.0 and Hct - 22.3. Valentino [phone]
[2022-12-27] MEDS: pantoprazole 40mg Tablet.DR PO SCH (07:57)
[2022-12-27] MEDS: cefepime inj. 0.5 GM in normal saline 100ml IV soln 105 ML IV SCH (07:57)
[2022-12-27] MEDS: aspirin 81mg tab.chew PO SCH (07:57)
[2022-12-27] MEDS: cinacalcet 30mg tablet PO SCH ×2 (07:57→22:19)
[2022-12-27] MEDS: ROSUVASTATIN CALCIUM 5 MG TABLET PO SCH (07:58)
[2022-12-27] MEDS: NIFEdipine XL 30mg tablet PO SCH (07:58)
[2022-12-27] MEDS: tamsulosin 0.4mg capsule PO SCH ×2 (07:58→20:00)
[2022-12-27] MEDS: famotidine 20mg tablet PO SCH (07:58)
[2022-12-27] MEDS: losartan 50mg tablet PO SCH (07:59)
[2022-12-27] MEDS: carVEDilol 12.5mg tablet PO SCH ×2 (08:00→22:21)
[2022-12-27] MEDS: docusate sod 100mg capsule PO SCH ×2 (08:00→22:20)
[2022-12-27] MEDS: furosemide 40mg/4ml inj IV SCH ×2 (08:01→22:16)
[2022-12-27] MEDS: heparin, porcine 5000 units/ml vial SQ SCH ×2 (08:01→22:17)
[2022-12-27 08:07] LABS: ALANINE AMINOTRANSFERASE 7 U/L (12-78); ALBUMIN/GLOBULIN RATIO 0.5 (1.1-1.5); ALKALINE PHOSPHATASE 176 IU/L (46-116); ANION GAP 10 (8-16); ASPARTATE AMINO TRANSFERASE 23 U/L (10-37); BILIRUBIN,TOTAL 0.6 MG/DL (0.1-1.0); BLOOD UREA NITROGEN 48 MG/DL (7-18); BUN/CREATININE RATIO 5.6 (10.0-20.0); CALCIUM 7.1 MG/DL (8.5-10.1); CHLORIDE 100 MMOL/L (99-107); CREATININE 8.56 MG/DL (0.60-1.10); GLUCOSE 98 MG/DL (70-104); POTASSIUM 4.1 MMOL/L (3.5-5.1); SODIUM 135 MMOL/L (135-145); TOTAL CARBON DIOXIDE 24.9 MMOL/L (24-32); TOTAL PROTEIN 6.1 G/DL (6.4-8.2); eGFR 6 ML/MIN
[2022-12-27 08:29] LABS: NUCLEATED RED BLOOD CELLS 2 /100WBC (0-0); TOTAL CELLS COUNTED 100
[2022-12-27 08:34] LABS: PLATELET ESTIMATE NORMAL
[2022-12-27 08:35] LABS: ANISOCYTOSIS 2+; ELLIPTOCYTES FEW; MICROCYTOSIS 1+; POLYCHROMASIA FEW
--- NOTE | 2022-12-27 10:16 | NUR ---
Pt will be going up to HD on 4th floor very soon. He has a low Hgb of 7.[address] Armstrong and cardiology consults have been made aware of. Cardiology said they would put in an order for blood to be transfused while he is at HD. I have stated we do not have a set policy for that but was told it was fine and we can still start the transfusion.
--- NOTE | 2022-12-27 11:38 | NUR ---
Message: Barrie 1343B, Pt is doing HD now. He is having breathing and CP issues. Shaheen consulted he said continue HD, but check with you for CP and breathing care. Valentino [phone]
--- NOTE | 2022-12-27 11:45 | NUR ---
Pt is having new changed symptoms of CP and SoB during HD. The SoB is new and has not been an issue before, CP is usual due to broken ribs and CABG procedure. Dr Jamison has been consulted in room with pt and he stated continue HD but to consult with hospitalist on case. On list and orders Nathaniel is the hospitalist however he says he has been off the case and to consult with crossing flagman who is on pt's case which is Sasha as per Nathaniel's statement. I have reached out to Sasha for consult but his wafer fabrication technician has taken the call and will pass on information. I left my number for his call back.
[2022-12-27 14:01] LABS: CLARITY,URINE CLEAR (Clear); COLOR,URINE YELLOW (Yellow); GLUCOSE, URINE 100 mg/dl (Neg); KETONES,URINE NEGATIVE (Neg); LEUKOCYTE ESTERASE ,URINE NEGATIVE (Neg); NITRITES, URINE NEGATIVE (Neg); OCCULT BLOOD,URINE TRACE-INTACT (Neg); PROTEIN,URINE 30 mg/dl (Neg); UROBILINOGEN,URINE 0.2 E.U/dL (0.2-1.0)
[2022-12-27 14:03] LABS: UA COLLECTION TYPE CLN CATCH MIDSTREAM
[2022-12-27 14:27] LABS: BACTERIA,URINE FEW /HPF (Neg); RBC,URINE 0-2 /HPF (0-2); SQUAMOUS EPITHELIAL CELL,UR NONE SEEN /LPF (FEW); WBC,URINE 0-4 /HPF (0-4)
[2022-12-27 15:14] LABS: OCCULT BLOOD STOOL NEGATIVE (Neg)
--- NOTE | 2022-12-27 15:23 | NUR ---
The nonadmin med was given by HD tech during HD. I did not administer the med.
[2022-12-27] MEDS ORDERED: vancomycin 1,750 MG in NS 350ml IV soln IV ONE (17:50)
[2022-12-27] MEDS ORDERED: vancomycin/NS 1 GM ADD-VANTAGE 250 ML IV PRN ×2 (17:50→17:54)
[2022-12-27] MEDS: zolpidem 5mg tablet PO PRN (22:20)
[2022-12-28] MEDS: HYDROcodone/acetaminophen 10/325mg tab PO PRN ×4 (03:06→21:01)
[2022-12-28 06:59] LABS: BASOPHILS # (AUTO) 0.1 X10'3 (0-0.2); BASOPHILS % (AUTO) 0.9 % (0-1); EOSINOPHILS # (AUTO) 1.9 X10'3 (0-0.9); MEAN PLATELET VOLUME 8.6 FL (7.4-10.4); NEUTROPHILS # (AUTO) 7.8 X10'3 (1.8-7.7)
[2022-12-28 07:00] VITALS: BP 145/79
[2022-12-28 07:02] LABS: EOSINOPHILS % (AUTO) 15.2 % (0-6); HEMATOCRIT 22.5 % (42.0-52.0); HEMOGLOBIN 7.3 g/dl (14.0-17.9); LYMPHOCYTES # (AUTO) 0.8 X10'3 (1.1-4.8); LYMPHOCYTES % (AUTO) 6.8 % (21-51); MEAN CORPUSCULAR HEMOGLOBIN 30.5 PG (27.0-31.0); MEAN CORPUSCULAR HGB CONC 32.5 g/dL (33.0-36.5); MEAN CORPUSCULAR VOLUME 93.8 FL (78-98); MONOCYTES # (AUTO) 1.6 X10'3 (0-0.9); NEUTROPHILS % (AUTO) 64.1 % (42-75); PLATELET COUNT 301 X10'3 (140-440); RED CELL DISTRIBUTION WIDTH 16.9 % (11.5-14.5); WHITE BLOOD COUNT 12.2 X10'3 (4.5-11.0)
[2022-12-28 07:37] LABS: ALANINE AMINOTRANSFERASE 10 U/L (12-78); ALBUMIN 1.9 G/DL (3.4-5.0); ALBUMIN/GLOBULIN RATIO 0.5 (1.1-1.5); ALKALINE PHOSPHATASE 155 IU/L (46-116); ANION GAP 9 (8-16); ASPARTATE AMINO TRANSFERASE 19 U/L (10-37); BILIRUBIN,TOTAL 0.5 MG/DL (0.1-1.0); BLOOD UREA NITROGEN 37 MG/DL (7-18); BUN/CREATININE RATIO 4.7 (10.0-20.0); CALCIUM 7.2 MG/DL (8.5-10.1); CHLORIDE 103 MMOL/L (99-107); GLUCOSE 91 MG/DL (70-104); POTASSIUM 4.7 MMOL/L (3.5-5.1); SODIUM 138 MMOL/L (135-145); TOTAL CARBON DIOXIDE 26.4 MMOL/L (24-32); TOTAL PROTEIN 5.8 G/DL (6.4-8.2); eGFR 7 ML/MIN
[2022-12-28] MEDS: cefepime inj. 0.5 GM in normal saline 100ml IV soln 105 ML IV SCH (07:42)
[2022-12-28] MEDS: pantoprazole 40mg Tablet.DR PO SCH (07:43)
[2022-12-28] MEDS: heparin, porcine 5000 units/ml vial SQ SCH ×2 (07:43→20:52)
[2022-12-28] MEDS: furosemide 40mg/4ml inj IV SCH ×2 (07:43→20:44)
[2022-12-28] MEDS: aspirin 81mg tab.chew PO SCH (07:43)
[2022-12-28] MEDS: tamsulosin 0.4mg capsule PO SCH ×2 (07:43→20:54)
[2022-12-28] MEDS: ROSUVASTATIN CALCIUM 5 MG TABLET PO SCH (07:44)
[2022-12-28] MEDS: carVEDilol 12.5mg tablet PO SCH ×2 (07:44→20:54)
[2022-12-28] MEDS: NIFEdipine XL 30mg tablet PO SCH (07:44)
[2022-12-28] MEDS: cinacalcet 30mg tablet PO SCH ×2 (07:44→20:54)
[2022-12-28] MEDS: losartan 50mg tablet PO SCH (07:44)
[2022-12-28] MEDS: docusate sod 100mg capsule PO SCH ×2 (07:51→20:54)
[2022-12-28] MEDS ORDERED: heparin 1,000 units/ml 10ml inj HE ONE ×2 (08:00)
[2022-12-28] MEDS ORDERED: EPOETIN ALFA-EPBX 20,000 UNIT/ML 1 ML MDV IV ONE (08:00)
[2022-12-28 10:18] LABS: ANISOCYTOSIS 1+; NUCLEATED RED BLOOD CELLS 3 /100WBC (0-0); PLATELET ESTIMATE NORMAL; TOTAL CELLS COUNTED 100
[2022-12-28 10:19] LABS: HYPOCHROMASIA 2+
[2022-12-28 10:20] LABS: SCHISTOCYTES FEW
[2022-12-28 10:21] LABS: BURR CELLS FEW; ELLIPTOCYTES FEW; POLYCHROMASIA FEW
[2022-12-28 11:00] VITALS: BP 108/58
--- NOTE | 2022-12-28 12:07 | NUR ---
Initial: Pt admit for AMS and SOB. Per PA note pt fluid overload. S/p thoracentesis 4/ with 900 mL fluid removed per physician note. Pt receiving HD, documented with 2.2 L fluid removed at last HD 12/27 per I&O. Pt currently on a renal 2 g Na restricted diet and eating well, documented with mostly 100% PO intake except with 0% PO intake at lunch 4/ which is likely d/t meal tray being held for HD. Despite good PO intake pt not meeting estimated nutrient needs. Recommend double protein BIDLD to assist with satiety and fully meeting estimated nutrient needs. LBM 4/5 per I&O. Will continue to follow and monitor need for further nutrition intervention. Recommendations: 1) Continue renal 2 g Na restricted diet per MD 2) Double meat BIDLD 3) Routine bowel care 4) Scaled weights with HD Addendum: 12/28/22 at [address] Amended: Links added.
[2022-12-28] MEDS: albumin (human) 25% 100ml IV 100 ML IV PRN ×3 (12:38→14:08)
--- NOTE | 2022-12-28 12:57 | NUR ---
Pt has been taken upstairs to HD by myself and care staff. HD is running currently. There was an extra med dose of heparin that was brought to HD that was not in my system and it is usually run during the process, however techs were unclear if it was needed to be documented in eMAR or not, as we couldn't but they needed it for HD they administered it to pt. The HD nurse was consulted on iPad and she asked if I could administer albumin to the pt since his albumin lab was low. My eMAR had it as an order however it was only for SBP <90. I said i wouldn't give med without Dr Cha's permission and consultation. HD nurse called Dr Cha and he told he to allow me to administer 300cc of albumin 25% to pt for low value. I have the albumin running currently and will swap out new bottle in less than 30 mins. Will continue to closely monitor pt.
[2022-12-28 18:00] VITALS: BP 131/59
--- NOTE | 2022-12-28 18:14 | NUR ---
Numerous care staff has been documenting on pt's fluid intake today. Pt has only had a total intake of 1000mL as per Dr Cha's request. Pt knows he can not have any more fluid for today, resetting at midnight tonight.
[2022-12-28] MEDS: zolpidem 5mg tablet PO PRN (21:00)
--- NOTE | 2022-12-28 21:41 | NUR ---
I agree with HIGHWAY MAINTENANCE TECHNICIAN assessment
[2022-12-28 22:00] VITALS: BP 124/58
[2022-12-29] MEDS: HYDROcodone/acetaminophen 10/325mg tab PO PRN ×5 (02:52→23:34)
[2022-12-29 06:00] VITALS: BP 133/60
--- NOTE | 2022-12-29 06:38 | NUR ---
Patient in room PCU 3013A. I have received report from Michelle PACHECO and had the opportunity to ask questions and assume patient care. Pt is layingin bed low fowlers and is resting comfortably . Pt on RA, no s/s of distress, no c/o pain at this time. BLL, call light wihtin reach, frequently used items in reach, frequent rounding, trade mark attorney socks on. Will continue to monitor.
[2022-12-29] MEDS ORDERED: normal saline 1000ml 250 ML IV PRN (07:15)
[2022-12-29] MEDS ORDERED: heparin 1,000 units/ml 10ml inj HE ONE ×2 (07:15)
[2022-12-29] MEDS ORDERED: EPOETIN ALFA-EPBX 20,000 UNIT/ML 1 ML MDV IV ONE (07:15)
[2022-12-29] MEDS ORDERED: heparin 1,000unit/ml 10ml vial 10 ML IV ONE (07:15)
[2022-12-29] MEDS: furosemide 40mg/4ml inj IV SCH ×2 (07:26→20:19)
[2022-12-29] MEDS: cefepime inj. 0.5 GM in normal saline 100ml IV soln 105 ML IV SCH (07:27)
[2022-12-29] MEDS: docusate sod 100mg capsule PO SCH ×2 (07:28→19:29)
[2022-12-29] MEDS: aspirin 81mg tab.chew PO SCH (07:28)
[2022-12-29] MEDS: ROSUVASTATIN CALCIUM 5 MG TABLET PO SCH (07:28)
[2022-12-29] MEDS: tamsulosin 0.4mg capsule PO SCH ×2 (07:28→19:30)
[2022-12-29] MEDS: losartan 50mg tablet PO SCH (07:28)
[2022-12-29] MEDS: carVEDilol 12.5mg tablet PO SCH ×2 (07:28→19:36)
[2022-12-29] MEDS: famotidine 20mg tablet PO SCH (07:29)
[2022-12-29] MEDS: pantoprazole 40mg Tablet.DR PO SCH (07:29)
[2022-12-29] MEDS: NIFEdipine XL 30mg tablet PO SCH (07:29)
[2022-12-29] MEDS: cinacalcet 30mg tablet PO SCH ×2 (07:29→19:31)
[2022-12-29] MEDS: heparin, porcine 5000 units/ml vial SQ SCH ×2 (07:30→19:32)
[2022-12-29 08:00] VITALS: BP 143/81
[2022-12-29 08:54] LABS: HEMATOCRIT 22.5 % (42.0-52.0); HEMOGLOBIN 7.4 g/dl (14.0-17.9); MEAN CORPUSCULAR HGB CONC 33.1 g/dL (33.0-36.5); MEAN CORPUSCULAR VOLUME 93.8 FL (78-98); MEAN PLATELET VOLUME 8.9 FL (7.4-10.4); PLATELET COUNT 318 X10'3 (140-440); RED CELL DISTRIBUTION WIDTH 17.2 % (11.5-14.5); WHITE BLOOD COUNT 9.3 X10'3 (4.5-11.0)
[2022-12-29 11:00] VITALS: BP 99/49
--- NOTE | 2022-12-29 13:39 | NUR ---
SBAR report sonny Moon RN dialysys. All questions answered. Will continue to monitor.
[2022-12-29 15:00] VITALS: BP 127/72
--- NOTE | 2022-12-29 16:39 | NUR ---
Pt tolerating HD well. No s/s of hemodynamic compromise. HD techs at bedside. Pt declines c/o pain. BLL, call light within reach, frequently used items in reach, frequent rounding. Will continue to monitor.
[2022-12-29 18:00] VITALS: BP 126/66
--- NOTE | 2022-12-29 18:08 | NUR ---
Pt has 35 minutes left of HD treatment. VSS, pt afebrile no s/s of hemodynamic compromise. Pt tolerating treatment well. HD techs at bedside, no issues or complaints stated. Will continue to monitor.
[2022-12-29 22:00] VITALS: BP 91/52
[2022-12-29] MEDS: zolpidem 5mg tablet PO PRN (23:34)
[2022-12-30] MEDS: VANCOMYCIN LEVEL IV SCH (03:00)
[2022-12-30] MEDS: HYDROcodone/acetaminophen 10/325mg tab PO PRN ×4 (05:25→19:49)
[2022-12-30 06:00] VITALS: BP 167/92
--- NOTE | 2022-12-30 06:33 | NUR ---
Problems reprioritized. Patient report given, questions answered & plan of care reviewed with Adeline MOSLEY.
--- NOTE | 2022-12-30 06:42 | NUR ---
Patient in room PCU 3013A. I have received report from Michelle PACHECO and had the opportunity to ask questions and assume patient care. Pt is sitting up on side of bed rubbing R leg. Pt has c/o pain, recieved norco recently. Please see eMAR. Will follow up with MD about break through pain meds. Pt on RA. No s/s of distress. BLL, call light within reach, frequently used items in reach, frequent rounding, stove fitter socks on. Will continue to monitor.
--- NOTE | 2022-12-30 07:03 | NUR ---
This RN assessed this patient and it aligns w/the POLLS OR SURVEYS INTERVIEWER's physical assessment. I agree w/medication admin. f/this pt.
[2022-12-30] MEDS ORDERED: heparin 1,000unit/ml 10ml vial 10 ML IV ONE (08:00)
[2022-12-30] MEDS ORDERED: EPOETIN ALFA-EPBX 20,000 UNIT/ML 1 ML MDV IV ONE (08:00)
[2022-12-30] MEDS ORDERED: heparin 1,000 units/ml 10ml inj HE ONE ×2 (08:00)
[2022-12-30] MEDS ORDERED: normal saline 1000ml 250 ML IV PRN (08:00)
[2022-12-30] MEDS: NIFEdipine XL 30mg tablet PO SCH (08:01)
[2022-12-30] MEDS: docusate sod 100mg capsule PO SCH ×2 (08:02→19:49)
[2022-12-30] MEDS: aspirin 81mg tab.chew PO SCH (08:02)
[2022-12-30] MEDS: ROSUVASTATIN CALCIUM 5 MG TABLET PO SCH (08:02)
[2022-12-30] MEDS: tamsulosin 0.4mg capsule PO SCH ×2 (08:02→19:49)
[2022-12-30] MEDS: losartan 50mg tablet PO SCH (08:02)
[2022-12-30] MEDS: cinacalcet 30mg tablet PO SCH ×2 (08:02→19:49)
[2022-12-30] MEDS: pantoprazole 40mg Tablet.DR PO SCH (08:03)
[2022-12-30] MEDS: carVEDilol 12.5mg tablet PO SCH ×2 (08:03→19:50)
[2022-12-30] MEDS: heparin, porcine 5000 units/ml vial SQ SCH ×2 (09:18→19:54)
[2022-12-30] MEDS: cefepime inj. 0.5 GM in normal saline 100ml IV soln 105 ML IV SCH (09:18)
[2022-12-30] MEDS: furosemide 40mg/4ml inj IV SCH ×2 (09:18→19:54)
[2022-12-30 09:32] LABS: BASOPHILS # (AUTO) 0.2 X10'3 (0-0.2); HEMOGLOBIN 7.9 g/dl (14.0-17.9); LYMPHOCYTES # (AUTO) 1.1 X10'3 (1.1-4.8); MEAN CORPUSCULAR VOLUME 95.1 FL (78-98)
[2022-12-30 09:34] LABS: BASOPHILS % (AUTO) 2.2 % (0-1); EOSINOPHILS % (AUTO) 24.5 % (0-6); HEMATOCRIT 24.4 % (42.0-52.0); LYMPHOCYTES % (AUTO) 13.2 % (21-51); MEAN CORPUSCULAR HEMOGLOBIN 30.8 PG (27.0-31.0); MEAN CORPUSCULAR HGB CONC 32.4 g/dL (33.0-36.5); MONOCYTES # (AUTO) 1.4 X10'3 (0-0.9); MONOCYTES % (AUTO) 16.9 % (2-12); NEUTROPHILS # (AUTO) 3.6 X10'3 (1.8-7.7); NEUTROPHILS % (AUTO) 43.2 % (42-75); PLATELET COUNT 346 X10'3 (140-440); RED BLOOD COUNT 2.57 X10'6 (4.70-6.10); RED CELL DISTRIBUTION WIDTH 18.5 % (11.5-14.5); WHITE BLOOD COUNT 8.3 X10'3 (4.5-11.0)
--- NOTE | 2022-12-30 09:45 | NUR ---
Meliton elder in Pts room setting up HD machine. Primary nurse at bedside completing HD pre-assessment. SBAR given TO HD RN Isabel. All questions answered, labs discussed, and plan of care for HD today. Pt tolerating well, no c/o of pain. Will continue to monitor thought treatment.
[2022-12-30 10:03] LABS: ANISOCYTOSIS 2+; PLATELET ESTIMATE NORMAL; TOTAL CELLS COUNTED 100
[2022-12-30 10:04] LABS: POIKILOCYTOSIS FEW
--- NOTE | 2022-12-30 11:00 | NUR ---
Pt tolerating HD treatment well, VSS, no s/s of hemodynamic compromise. Pt on RA, no s/s of distress. Pt resting low fowlers in bed. HD machine running smoothly no alerts or alarms at this time. Will continue to monitor thought HD treatment.
[2022-12-30 11:14] VITALS: BP 120/69
--- NOTE | 2022-12-30 12:31 | NUR ---
Pt tolerating HD treatment well, VSS, no s/s of hemodynamic compromise. Pt having c/o body pain, please see eMAR for interventions. Pt on RA, no s/s of distress. Pt resting semi-fowlers in bed. HD machine running smoothly no alerts or alarms at this time. One hour left of treatment. Will continue to monitor thought HD treatment.
--- NOTE | 2022-12-30 13:58 | NUR ---
Post HD assessment completed with Isabel BULLOCK RN, as well as Meliton elder. Pt tolerated treatment well, VSS, pt afebrile, no complications with HD treatment plan. Pt lungs sound slightly diminished on L side. Pt post HD weight 96.2 kg standing scale, pre weight 99.7 kg standing scale. HD pulled off 3.5L. Pt tolerated well. States he can see his toes wrinkle now d/t fluid removal. HD ports accessed per policy and Hep locked. No issues. Will continue to monitor.
[2022-12-30 18:00] VITALS: BP 144/61
--- NOTE | 2022-12-30 18:25 | NUR ---
Problems reprioritized. Patient report given, questions answered & plan of care reviewed with Karin MOSLEY.
--- NOTE | 2022-12-30 18:30 | NUR ---
Patient in room PCU 3013. I have received report from LUIS MOSLEY and had the opportunity to ask questions and assume patient care.
--- NOTE | 2022-12-30 21:26 | NUR ---
CALLED MD HAYNES- [id number]-RHONDA MALAVE-PAIN UNCONTROLLED WITH HYDROCODONE 10/325 2 TABS EVERY 4 HRS-TAKES MS CONTIN 1 30MG TAB PO BID ADDITIONALLY AT HOME. MAY i ADD THIS TO HIS MED PROFILE? CHANDANA [id number], THX Addendum: 12/30/22 at 213 by Karin Araya RN MD HAYNES CALLED BACK, NO PEPE BESS. STATED TO CALL DR. BAKER ON DAY SHIFT IN AM. Addendum: 12/30/22 at 2205 by Karin Araya RN WILL REVISIT PAIN ISSUES IN AM WHEN DAY SHIFT PROVIDERS ON DUTY. SAMANTHA MOSLEY
[2022-12-30 22:00] VITALS: BP 157/85
[2022-12-31] MEDS: HYDROcodone/acetaminophen 10/325mg tab PO PRN ×3 (00:13→08:18)
[2022-12-31] MEDS: zolpidem 5mg tablet PO PRN ×2 (00:17→21:26)
[2022-12-31 02:00] VITALS: BP 158/81
[2022-12-31] MEDS: VANCOMYCIN LEVEL IV SCH (03:00)
[2022-12-31 06:00] VITALS: BP 147/82
--- NOTE | 2022-12-31 06:20 | NUR ---
Patient in room PCU 3009. I have received report from Karin MOSLEY and had the opportunity to ask questions and assume patient care. Pt is laying low fowlers in bed, and is resting comfortably. Pt has c/o pain, please see eMAR. Pt on RA, no s/s of distress. BLL, call light within reach, frequently used items inreach, frequent rounding, medication aide socks on. Will continue to monitor.
--- NOTE | 2022-12-31 06:23 | NUR ---
Problems reprioritized. Patient report given, questions answered & plan of care reviewed with LUIS MOSLEY.
[2022-12-31 07:12] LABS: HEMOGLOBIN 7.9 g/dl (14.0-17.9); MEAN PLATELET VOLUME 8.5 FL (7.4-10.4)
[2022-12-31 07:18] LABS: BASOPHILS # (AUTO) 0.2 X10'3 (0-0.2); BASOPHILS % (AUTO) 1.9 % (0-1); EOSINOPHILS # (AUTO) 2.5 X10'3 (0-0.9); EOSINOPHILS % (AUTO) 28.6 % (0-6); HEMATOCRIT 24.3 % (42.0-52.0); LYMPHOCYTES % (AUTO) 11.9 % (21-51); MEAN CORPUSCULAR HEMOGLOBIN 30.9 PG (27.0-31.0); MEAN CORPUSCULAR HGB CONC 32.4 g/dL (33.0-36.5); MEAN CORPUSCULAR VOLUME 95.4 FL (78-98); MONOCYTES # (AUTO) 1.4 X10'3 (0-0.9); MONOCYTES % (AUTO) 16.1 % (2-12); NEUTROPHILS # (AUTO) 3.6 X10'3 (1.8-7.7); NEUTROPHILS % (AUTO) 41.5 % (42-75); PLATELET COUNT 320 X10'3 (140-440); RED BLOOD COUNT 2.55 X10'6 (4.70-6.10); RED CELL DISTRIBUTION WIDTH 18.9 % (11.5-14.5); WHITE BLOOD COUNT 8.7 X10'3 (4.5-11.0)
[2022-12-31 07:23] LABS: ALANINE AMINOTRANSFERASE 15 U/L (12-78); ALBUMIN 2.4 G/DL (3.4-5.0); ALBUMIN/GLOBULIN RATIO 0.6 (1.1-1.5); ALKALINE PHOSPHATASE 163 IU/L (46-116); ANION GAP 9 (8-16); ASPARTATE AMINO TRANSFERASE 28 U/L (10-37); BILIRUBIN,TOTAL 0.5 MG/DL (0.1-1.0); BLOOD UREA NITROGEN 30 MG/DL (7-18); BUN/CREATININE RATIO 5.5 (10.0-20.0); CALCIUM 7.4 MG/DL (8.5-10.1); CHLORIDE 102 MMOL/L (99-107); GLUCOSE 94 MG/DL (70-104); POTASSIUM 4.6 MMOL/L (3.5-5.1); SODIUM 139 MMOL/L (135-145); TOTAL CARBON DIOXIDE 28.5 MMOL/L (24-32); TOTAL PROTEIN 6.6 G/DL (6.4-8.2); eGFR 11 ML/MIN
[2022-12-31 07:24] LABS: VANCOMYCIN,RANDOM 15.6 UG/ML
[2022-12-31] MEDS ORDERED: heparin 1,000unit/ml 10ml vial 10 ML IV ONE (07:40)
[2022-12-31] MEDS ORDERED: EPOETIN ALFA-EPBX 20,000 UNIT/ML 1 ML MDV IV ONE (07:40)
[2022-12-31] MEDS ORDERED: normal saline 1000ml 250 ML IV PRN (07:40)
[2022-12-31] MEDS ORDERED: heparin 1,000 units/ml 10ml inj HE ONE ×2 (07:45)
[2022-12-31] MEDS: heparin, porcine 5000 units/ml vial SQ SCH ×2 (08:00→20:39)
[2022-12-31] MEDS: aspirin 81mg tab.chew PO SCH (08:29)
[2022-12-31] MEDS: furosemide 40mg/4ml inj IV SCH ×2 (08:29→20:23)
[2022-12-31] MEDS: losartan 50mg tablet PO SCH (08:30)
[2022-12-31] MEDS: docusate sod 100mg capsule PO SCH ×2 (08:30→20:39)
[2022-12-31] MEDS: carVEDilol 12.5mg tablet PO SCH ×2 (08:30→20:40)
[2022-12-31] MEDS: ROSUVASTATIN CALCIUM 5 MG TABLET PO SCH (08:30)
[2022-12-31] MEDS: famotidine 20mg tablet PO SCH (08:31)
[2022-12-31] MEDS: NIFEdipine XL 30mg tablet PO SCH (08:31)
[2022-12-31] MEDS: cinacalcet 30mg tablet PO SCH ×2 (08:31→20:40)
[2022-12-31] MEDS: tamsulosin 0.4mg capsule PO SCH ×2 (08:31→20:40)
[2022-12-31] MEDS: pantoprazole 40mg Tablet.DR PO SCH (08:31)
--- NOTE | 2022-12-31 08:45 | NUR ---
HD Tech at bedside setting up machine, SBAR pre-assessment with HD RN Florin completed. Lab discussed, pre-weight obtained 97.6kg, plan of treatment discussed. VSS, Pt afebrile. 97.5 Aux, 71 HR, 14 RR, 100% RA, 147/82, 9/10 pain.Pt having c/o pain to R leg d/t celluitis. PRN pain medication administered, will follow up with MD Sherman for breakthrough pain medication. Will continue to monitor thought treatment.
--- NOTE | 2022-12-31 08:58 | NUR ---
Treatment started. attempting to pull of 4L.
[2022-12-31 09:19] LABS: ANISOCYTOSIS 2+; NUCLEATED RED BLOOD CELLS 2 /100WBC (0-0); PLATELET ESTIMATE NORMAL; TOTAL CELLS COUNTED 100
[2022-12-31 09:21] LABS: ELLIPTOCYTES 1+; HYPOCHROMASIA 1+; POLYCHROMASIA 1+; SCHISTOCYTES FEW; TARGET CELLS FEW
--- NOTE | 2022-12-31 10:46 | NUR ---
Pt tolerating HD well. VSS, pt afebrile, no s/s of hemodynamic compromise. HD jerrod Coelho at bedside, states no issues with HD machine, no alarms or alert. one hour and 30 minutes left of treatment. Will continue to monitor.
[2022-12-31 11:00] VITALS: BP 123/69
--- NOTE | 2022-12-31 11:39 | NUR ---
Pt tolerating HD well. VSS, pt afebrile, no s/s of hemodynamic compromise. HD tech Meliton at bed side. No c/o issues with HD treatment, no alerts or alarms. About 40 minutes left of HD treatment. Pt declines and issues with HD. Will continue to monitor Pts on HD.
--- NOTE | 2022-12-31 12:30 | NUR ---
Post HD assessment completed with Florin HD RN. Pts VS 97.7 AUX, 96% RA, 76 HR, 112/61. HD pulled off 4L. Pts post HD weight 93.8 kg. Lungs sound clear. Pts BL upper extremities +1, RLE +1, R upper medial thigh still firm to touch and painful per Pt. Pt tolerated treatment well. Pt up in bed eating lunch. BLL, call light within reach, frequently used items in reach, frequent rounding, process architect socks on. Will continue to monitor.
[2022-12-31] MEDS: oxyCODONE IR 5mg (immed. release) tablet PO PRN ×3 (12:41→21:22)
[2022-12-31 14:00] VITALS: BP 113/63
[2022-12-31 18:00] VITALS: BP 137/74
--- NOTE | 2022-12-31 18:00 | NUR ---
Patient in room PCU 3009. I have received report from FABIO MOSLEY and had the opportunity to ask questions and assume patient care.
--- NOTE | 2022-12-31 18:22 | NUR ---
Problems reprioritized. Patient report given, questions answered & plan of care reviewed with Karin MOSLEY.
[2022-12-31] MEDS: morphine ER 30mg tablet PO SCH (20:37)
[2022-12-31 22:00] VITALS: BP 132/68
[2023-01-01] MEDS: oxyCODONE IR 5mg (immed. release) tablet PO PRN ×5 (01:23→20:09)
[2023-01-01 02:00] VITALS: BP 138/74
[2023-01-01] MEDS: VANCOMYCIN LEVEL IV SCH (03:00)
[2023-01-01 06:46] LABS: VANCOMYCIN,RANDOM 12.6 UG/ML
--- NOTE | 2023-01-01 06:49 | NUR ---
Problems reprioritized. Patient report given, questions answered & plan of care reviewed with ELSIE MOSLEY.
[2023-01-01] MEDS ORDERED: vancomycin/NS 1 GM ADD-VANTAGE 250 ML IV ONE (06:55)
--- NOTE | 2023-01-01 06:56 | NUR ---
Patient in room PCU 3009. I have received report from Karin MOSLEY and had the opportunity to ask questions and assume patient care.
[2023-01-01 07:00] VITALS: BP 151/84
[2023-01-01] MEDS ORDERED: EPOETIN ALFA-EPBX 20,000 UNIT/ML 1 ML MDV IV ONE (08:00)
[2023-01-01] MEDS ORDERED: heparin 1,000 units/ml 10ml inj HE ONE ×2 (08:00)
[2023-01-01] MEDS ORDERED: normal saline 1000ml 250 ML IV PRN (08:00)
[2023-01-01] MEDS ORDERED: heparin 1,000unit/ml 10ml vial 10 ML IV ONE (08:00)
[2023-01-01] MEDS: ROSUVASTATIN CALCIUM 5 MG TABLET PO SCH (08:02)
[2023-01-01] MEDS: pantoprazole 40mg Tablet.DR PO SCH (08:03)
[2023-01-01] MEDS: tamsulosin 0.4mg capsule PO SCH ×2 (08:03→20:04)
[2023-01-01] MEDS: NIFEdipine XL 30mg tablet PO SCH (08:03)
[2023-01-01] MEDS: docusate sod 100mg capsule PO SCH ×2 (08:03→20:06)
[2023-01-01] MEDS: aspirin 81mg tab.chew PO SCH (08:03)
[2023-01-01] MEDS: losartan 50mg tablet PO SCH (08:05)
[2023-01-01] MEDS: cinacalcet 30mg tablet PO SCH ×2 (08:06→20:06)
[2023-01-01] MEDS: carVEDilol 12.5mg tablet PO SCH ×2 (08:06→20:05)
[2023-01-01] MEDS: furosemide 40mg/4ml inj IV SCH ×2 (08:07→20:07)
[2023-01-01] MEDS: morphine ER 30mg tablet PO SCH ×2 (08:35→20:05)
[2023-01-01 09:18] LABS: BASOPHILS # (AUTO) 0.2 X10'3 (0-0.2); RED CELL DISTRIBUTION WIDTH 19.5 % (11.5-14.5)
[2023-01-01 09:20] LABS: BASOPHILS % (AUTO) 2.5 % (0-1); EOSINOPHILS % (AUTO) 24.5 % (0-6); HEMATOCRIT 24.7 % (42.0-52.0); HEMOGLOBIN 7.9 g/dl (14.0-17.9); LYMPHOCYTES # (AUTO) 1.1 X10'3 (1.1-4.8); LYMPHOCYTES % (AUTO) 13.1 % (21-51); MEAN CORPUSCULAR HGB CONC 32.1 g/dL (33.0-36.5); MEAN CORPUSCULAR VOLUME 96.6 FL (78-98); MEAN PLATELET VOLUME 8.8 FL (7.4-10.4); NEUTROPHILS # (AUTO) 3.9 X10'3 (1.8-7.7); NEUTROPHILS % (AUTO) 47.9 % (42-75); PLATELET COUNT 339 X10'3 (140-440); RED BLOOD COUNT 2.56 X10'6 (4.70-6.10); WHITE BLOOD COUNT 8.2 X10'3 (4.5-11.0)
[2023-01-01] MEDS ORDERED: lactulose 20gm/30ml cup PO ONE (09:25)
[2023-01-01 09:36] LABS: ALBUMIN 2.5 G/DL (3.4-5.0); ANION GAP 10 (8-16); BLOOD UREA NITROGEN 29 MG/DL (7-18); BUN/CREATININE RATIO 5.1 (10.0-20.0); CALCIUM 7.8 MG/DL (8.5-10.1); CHLORIDE 102 MMOL/L (99-107); CREATININE 5.72 MG/DL (0.60-1.10); GLUCOSE 97 MG/DL (70-104); POTASSIUM 4.7 MMOL/L (3.5-5.1); SODIUM 138 MMOL/L (135-145); TOTAL CARBON DIOXIDE 26.2 MMOL/L (24-32); eGFR 10 ML/MIN
[2023-01-01 09:57] LABS: ANISOCYTOSIS 2+; NUCLEATED RED BLOOD CELLS 4 /100WBC (0-0); PLATELET ESTIMATE NORMAL; TOTAL CELLS COUNTED 100
[2023-01-01 09:58] LABS: ACANTHOCYTES FEW; ELLIPTOCYTES FEW; SCHISTOCYTES FEW
--- NOTE | 2023-01-01 10:53 | NUR ---
patient scheduled for dialysis today. hold vanco til after treatment. labs were not ordered. asked elne ferrell to order labs. gave pain medication as ordered. I spoke with diaylsis nurse. I did the heparin and worked with tech to hook patient up to dialysis.
[2023-01-01 11:00] VITALS: BP 111/65
--- NOTE | 2023-01-01 13:27 | NUR ---
was able to give epogen during dialysis. patients blood pressures were stable and tolerating dialysis. I will wait til he is done to give lactalose, vanco, and pain medicine.
--- NOTE | 2023-01-01 14:38 | NUR ---
F/u 01/01: Pt PO mostly ~100% avg meals meeting estimated needs. LBM 12/29 to receive lactulose today per pt request already receiving routine colace per EMR. No further nutrition interventions at this time. Will continue to follow. Recommendations: 1) Continue renal 2 g Na restricted diet per MD 2) Double meat BIDLD 3) Consider Phos binder w/ meals on HD and Phos level check since none this admit per physician discretion 4) Routine bowel care 5) Scaled weights with HD Addendum: 01/01/23 at [address] Amended: Links added.
--- NOTE | 2023-01-01 15:14 | NUR ---
patient got off dialysis around 1430. The dart nurse pasha took patient off. per tech he had 2.5 Liters taken off. starting weight was 95.6 finished weight was 93.8. claudette bailey, gave pain med and lactolose after diaylsis.
[2023-01-01 15:34] VITALS: BP 110/53
[2023-01-01 18:00] VITALS: BP 131/72
[2023-01-01] MEDS: heparin, porcine 5000 units/ml vial SQ SCH (20:07)
[2023-01-01 22:00] VITALS: BP 131/68
[2023-01-02] VITALS (7 sets, daily range): BP systolic 100–131; BP diastolic 56–79
[2023-01-02] MEDS: oxyCODONE IR 5mg (immed. release) tablet PO PRN ×4 (02:01→19:53)
[2023-01-02] MEDS: VANCOMYCIN LEVEL IV SCH (03:00)
--- NOTE | 2023-01-02 06:41 | NUR ---
Problems reprioritized. Patient report given, questions answered & plan of care reviewed with Mariya RN.
--- NOTE | 2023-01-02 07:18 | NUR ---
Patient in room PCU 3009. I have received report from Oriana MOSLEY and had the opportunity to ask questions and assume patient care.
[2023-01-02 08:04] LABS: BASOPHILS # (AUTO) 0.2 X10'3 (0-0.2); LYMPHOCYTES # (AUTO) 0.9 X10'3 (1.1-4.8); MEAN PLATELET VOLUME 8.5 FL (7.4-10.4); MONOCYTES # (AUTO) 1.1 X10'3 (0-0.9)
[2023-01-02 08:06] LABS: EOSINOPHILS % (AUTO) 25.6 % (0-6); HEMATOCRIT 23.8 % (42.0-52.0); HEMOGLOBIN 7.7 g/dl (14.0-17.9); LYMPHOCYTES % (AUTO) 11.3 % (21-51); MEAN CORPUSCULAR HEMOGLOBIN 30.8 PG (27.0-31.0); MEAN CORPUSCULAR HGB CONC 32.1 g/dL (33.0-36.5); MONOCYTES % (AUTO) 14.6 % (2-12); NEUTROPHILS # (AUTO) 3.6 X10'3 (1.8-7.7); NEUTROPHILS % (AUTO) 46.5 % (42-75); PLATELET COUNT 313 X10'3 (140-440); RED BLOOD COUNT 2.48 X10'6 (4.70-6.10); WHITE BLOOD COUNT 7.8 X10'3 (4.5-11.0)
[2023-01-02] MEDS ORDERED: PEG 3350/Na sulf,bicarb,Cl/KCl oral sol 4 liter bottle PO ONE (08:15)
[2023-01-02 08:34] LABS: ALBUMIN 2.4 G/DL (3.4-5.0); ANION GAP 6 (8-16); BLOOD UREA NITROGEN 29 MG/DL (7-18); BUN/CREATININE RATIO 5.3 (10.0-20.0); CALCIUM 7.7 MG/DL (8.5-10.1); CHLORIDE 101 MMOL/L (99-107); CREATININE 5.49 MG/DL (0.60-1.10); GLUCOSE 89 MG/DL (70-104); POTASSIUM 5.3 MMOL/L (3.5-5.1); SODIUM 136 MMOL/L (135-145); TOTAL CARBON DIOXIDE 28.9 MMOL/L (24-32); VANCOMYCIN,RANDOM 18.6 UG/ML; eGFR 11 ML/MIN
[2023-01-02] MEDS: aspirin 81mg tab.chew PO SCH (08:49)
[2023-01-02] MEDS: tamsulosin 0.4mg capsule PO SCH ×2 (08:49→19:54)
[2023-01-02] MEDS: furosemide 40mg/4ml inj IV SCH ×2 (08:49→20:02)
[2023-01-02] MEDS: pantoprazole 40mg Tablet.DR PO SCH (08:49)
[2023-01-02] MEDS: cinacalcet 30mg tablet PO SCH ×2 (08:49→19:53)
[2023-01-02] MEDS: ROSUVASTATIN CALCIUM 5 MG TABLET PO SCH (08:49)
[2023-01-02] MEDS: famotidine 20mg tablet PO SCH (08:50)
[2023-01-02] MEDS: NIFEdipine XL 30mg tablet PO SCH (08:50)
[2023-01-02] MEDS: losartan 50mg tablet PO SCH (08:50)
[2023-01-02] MEDS: carVEDilol 12.5mg tablet PO SCH ×2 (08:50→20:02)
[2023-01-02] MEDS: morphine ER 30mg tablet PO SCH ×2 (08:51→19:53)
[2023-01-02] MEDS: heparin, porcine 5000 units/ml vial SQ SCH ×2 (08:51→19:55)
[2023-01-02] MEDS: docusate sod 100mg capsule PO SCH ×2 (08:51→20:00)
[2023-01-02 09:57] LABS: TOTAL CELLS COUNTED 100
[2023-01-02 09:58] LABS: ANISOCYTOSIS 2+; PLATELET ESTIMATE NORMAL
[2023-01-02] MEDS: cefTAZidime inj. 1 GM in normal saline 100ml IV soln 100 ML IV SCH (19:52)
[2023-01-02] MEDS: zolpidem 5mg tablet PO PRN (22:32)
[2023-01-03] MEDS: oxyCODONE IR 5mg (immed. release) tablet PO PRN ×2 (00:18→05:19)
[2023-01-03 02:00] VITALS: BP 113/61
[2023-01-03] MEDS: VANCOMYCIN LEVEL IV SCH (03:00)
[2023-01-03 06:00] VITALS: BP 131/69
[2023-01-03 06:24] LABS: HEMOGLOBIN 8.1 g/dl (14.0-17.9)
[2023-01-03 06:25] LABS: BASOPHILS # (AUTO) 0.1 X10'3 (0-0.2); EOSINOPHILS # (AUTO) 1.8 X10'3 (0-0.9); EOSINOPHILS % (AUTO) 25.3 % (0-6); HEMATOCRIT 25.2 % (42.0-52.0); MEAN CORPUSCULAR HEMOGLOBIN 30.9 PG (27.0-31.0); MEAN CORPUSCULAR HGB CONC 32.1 g/dL (33.0-36.5); MEAN CORPUSCULAR VOLUME 96.3 FL (78-98); MEAN PLATELET VOLUME 8.4 FL (7.4-10.4); MONOCYTES % (AUTO) 14.1 % (2-12); NEUTROPHILS # (AUTO) 3.1 X10'3 (1.8-7.7); NEUTROPHILS % (AUTO) 44.6 % (42-75); PLATELET COUNT 352 X10'3 (140-440); RED BLOOD COUNT 2.61 X10'6 (4.70-6.10)
[2023-01-03 06:33] LABS: ALBUMIN 2.6 G/DL (3.4-5.0); ANION GAP 11 (8-16); BLOOD UREA NITROGEN 47 MG/DL (7-18); BUN/CREATININE RATIO 6.4 (10.0-20.0); CALCIUM 7.6 MG/DL (8.5-10.1); CHLORIDE 99 MMOL/L (99-107); CREATININE 7.31 MG/DL (0.60-1.10); GLUCOSE 85 MG/DL (70-104); POTASSIUM 5.2 MMOL/L (3.5-5.1); SODIUM 135 MMOL/L (135-145); TOTAL CARBON DIOXIDE 24.7 MMOL/L (24-32); VANCOMYCIN,RANDOM 16.5 UG/ML; eGFR 8 ML/MIN
--- NOTE | 2023-01-03 06:36 | NUR ---
Problems reprioritized. Patient report given, questions answered & plan of care reviewed with RASHMI MOSLEY.
[2023-01-03] MEDS: cefTAZidime inj. 1 GM in normal saline 100ml IV soln 100 ML IV SCH (07:54)
[2023-01-03] MEDS: morphine ER 30mg tablet PO SCH (07:55)
[2023-01-03] MEDS: pantoprazole 40mg Tablet.DR PO SCH (07:55)
[2023-01-03] MEDS: carVEDilol 12.5mg tablet PO SCH (07:55)
[2023-01-03] MEDS: cinacalcet 30mg tablet PO SCH (07:55)
[2023-01-03] MEDS: tamsulosin 0.4mg capsule PO SCH (07:55)
[2023-01-03] MEDS: aspirin 81mg tab.chew PO SCH (07:55)
[2023-01-03 07:56] VITALS: BP_SYST 131
[2023-01-03] MEDS: losartan 50mg tablet PO SCH (07:56)
[2023-01-03] MEDS: NIFEdipine XL 30mg tablet PO SCH (07:56)
[2023-01-03] MEDS: docusate sod 100mg capsule PO SCH (07:56)
[2023-01-03] MEDS: ROSUVASTATIN CALCIUM 5 MG TABLET PO SCH (07:57)
[2023-01-03] MEDS: furosemide 40mg/4ml inj IV SCH (07:57)
[2023-01-03] MEDS: heparin, porcine 5000 units/ml vial SQ SCH (07:57)
[2023-01-03] MEDS ORDERED: heparin 1,000 units/ml 10ml inj HE ONE ×2 (08:00)
[2023-01-03] MEDS ORDERED: heparin 1,000unit/ml 10ml vial 10 ML IV ONE (08:00)
[2023-01-03] MEDS ORDERED: EPOETIN ALFA-EPBX 20,000 UNIT/ML 1 ML MDV IV ONE (08:00)
[2023-01-03] MEDS ORDERED: normal saline 1000ml 250 ML IV PRN (08:00)
--- NOTE | 2023-01-03 09:00 | NUR ---
Gave report to Martha Champion RN via ipad. All questions answered. 0940 HD is started. Esdras Weiss, Dept management accounts manager, accessed the pt. I monitored the pt closely by checking in every 15 minutes for the blood pressure and pt assessment. 1311: HD ended. 3 liters taken off. pt tolerated well. 1500: prepared discharge paperwork and obtained dressing change for pt's hd catheter. Upon entering the room, I noted that the pt had already removed the dressing. I explained to the pt the reason why he is not to remove it. He states he understands. Using sterile technique, I cleaned up the area, and put on a new dressing. Removed the tele monitor and the piv. All discharge paperwork discussed with the pt. Explained how important the follow up appointments and also about the new medications. We also discussed all his daily medications as well. All questions answered. Pt states he understands all instructions. Pt left unit via wheelchair to private car.
[2023-01-03] MEDS ORDERED: levoFLOXACIN 250mg tablet PO ONE (10:00)
[2023-01-03] MEDS ORDERED: DOXY-1 PO (10:01)
[2023-01-03] MEDS ORDERED: LEVO250T74 PO (10:03)
[2023-01-04] MEDS ORDERED: HYDR-3973 PO (09:02)
== END 2023-01-03 15:25 | disposition home or self-care (01) | DRG 377 ==
LOC: ER 15:49 → ED HOLD 19:23 → PCU 3S 21:30
PROVIDERS: ADMIT Internal Medicine; ATTEND Family Medicine
PROC: CB121ZZ Planar Nuclear Medicine Imaging of Lungs and Bronchi using Technetium 99m (Tc-99m) (ICD-10-PCS; 2022-12-23)
PROC: 5A1D70Z Performance of Urinary Filtration, Intermittent, Less than 6 Hours Per Day (ICD-10-PCS; 2022-12-23)
PROC: B32T1ZZ Computerized Tomography (CT Scan) of Left Pulmonary Artery using Low Osmolar Contrast (ICD-10-PCS; 2022-12-24)
PROC: B3201ZZ Computerized Tomography (CT Scan) of Thoracic Aorta using Low Osmolar Contrast (ICD-10-PCS; 2022-12-24)
PROC: B32S1ZZ Computerized Tomography (CT Scan) of Right Pulmonary Artery using Low Osmolar Contrast (ICD-10-PCS; 2022-12-24)
PROC: 0DBP8ZZ Excision of Rectum, Via Natural or Artificial Opening Endoscopic (ICD-10-PCS; 2022-12-25)
PROC: 0DBL8ZZ Excision of Transverse Colon, Via Natural or Artificial Opening Endoscopic (ICD-10-PCS; 2022-12-25)
PROC: 0DBL8ZZ Excision of Transverse Colon, Via Natural or Artificial Opening Endoscopic (ICD-10-PCS; 2022-12-25)
PROC: 5A1D70Z Performance of Urinary Filtration, Intermittent, Less than 6 Hours Per Day (ICD-10-PCS; 2022-12-25)
PROC: 0W9B3ZZ Drainage of Left Pleural Cavity, Percutaneous Approach (ICD-10-PCS; principal; 2022-12-27)
PROC: 30233N1 Transfusion of Nonautologous Red Blood Cells into Peripheral Vein, Percutaneous Approach (ICD-10-PCS; 2022-12-27)
PROC: 5A1D70Z Performance of Urinary Filtration, Intermittent, Less than 6 Hours Per Day (ICD-10-PCS; 2022-12-28)
PROC: 5A1D70Z Performance of Urinary Filtration, Intermittent, Less than 6 Hours Per Day (ICD-10-PCS; 2022-12-29)
PROC: 5A1D70Z Performance of Urinary Filtration, Intermittent, Less than 6 Hours Per Day (ICD-10-PCS; 2022-12-30)
PROC: 5A1D70Z Performance of Urinary Filtration, Intermittent, Less than 6 Hours Per Day (ICD-10-PCS; 2022-12-31)
PROC: 5A1D70Z Performance of Urinary Filtration, Intermittent, Less than 6 Hours Per Day (ICD-10-PCS; 2023-01-01)
PROC: 5A1D70Z Performance of Urinary Filtration, Intermittent, Less than 6 Hours Per Day (ICD-10-PCS; 2023-01-03)
DX: K92.2 Gastrointestinal hemorrhage, unspecified (principal); N18.6 End stage renal disease; I82.451 Acute embolism and thrombosis of right peroneal vein; I13.2 Hypertensive heart and chronic kidney disease with heart failure and with stage 5 chronic kidney disease, or end stage renal disease; S22.42XA Multiple fractures of ribs, left side, initial encounter for closed fracture; J98.11 Atelectasis; L03.115 Cellulitis of right lower limb; J91.8 Pleural effusion in other conditions classified elsewhere; N17.9 Acute kidney failure, unspecified; I50.1 Left ventricular failure, unspecified; Z20.822 Contact with and (suspected) exposure to COVID-19; K64.8 Other hemorrhoids; G89.4 Chronic pain syndrome; K63.5 Polyp of colon; W18.39XA Other fall on same level, initial encounter; K62.1 Rectal polyp; E73.9 Lactose intolerance, unspecified; D63.1 Anemia in chronic kidney disease; I44.0 Atrioventricular block, first degree; E78.5 Hyperlipidemia, unspecified; K21.9 Gastro-esophageal reflux disease without esophagitis; I25.10 Atherosclerotic heart disease of native coronary artery without angina pectoris; N40.0 Benign prostatic hyperplasia without lower urinary tract symptoms; Z79.899 Other long term (current) drug therapy; I25.2 Old myocardial infarction; Z82.49 Family history of ischemic heart disease and other diseases of the circulatory system; Z90.81 Acquired absence of spleen; Z95.1 Presence of aortocoronary bypass graft; Z95.5 Presence of coronary angioplasty implant and graft; Z99.2 Dependence on renal dialysis; Y93.89 Activity, other specified; Y92.89 Other specified places as the place of occurrence of the external cause; Y99.8 Other external cause status
CPT/HCPCS: 36415; 36430; 45380; 45385; 70450; 71045; 71275; 76604; 78582; 80048; 80053; 80202; 81001; 82140; 82272; 83605; 83880; 84484; 85007; 85025; 85027; 85379; 86885; 86900; 86901; 86922; 87040; 87081; 87811; 88305; 93005; 93306; 93970; 93971; 96365; 96375; 97116; 97161; 97530; 99152; 99153; 99291; 99292; A4615; A4620; A9539; A9540; C1889; G0378; J0604; J0692; J0713; J1644; J1940; J2250; J3010; J3370; J3490; J7030; J7040; P9016; P9047; Q4081; Q9967

== ENCOUNTER 2023-03-02 13:06 | Emergency (ER) | payer MEDICARE, MEDICAID ==
[~2023-03-02] VITALS: Ht 185.4 cm; Wt 71.8 kg
[~2023-03-02 13:06] MED LIST changes: +ASPI-1053 PO; -ASPI81TA53 PO; +LEVO250T74 PO; +LOSA50TA64 PO; +NIFE-72 PO; -NIFE30TA95 PO; -ROSU20TA31 PO; +ROSU20TA73 PO
--- NOTE | 2023-03-02 13:26 | NUR ---
CONSULTED DR. MASTERS ON SOB, PT REQUEST CHEST XRAY. AGREED TO DO FULL WORK UP.
[2023-03-02 13:56] LABS: BASOPHILS # (AUTO) 0.2 X10'3 (0-0.2); BASOPHILS % (AUTO) 0.8 % (0-1); EOSINOPHILS # (AUTO) 0.4 X10'3 (0-0.9); EOSINOPHILS % (AUTO) 2.3 % (0-6); HEMATOCRIT 33.1 % (42.0-52.0); HEMOGLOBIN 10.5 g/dl (14.0-17.9); LYMPHOCYTES # (AUTO) 0.5 X10'3 (1.1-4.8); LYMPHOCYTES % (AUTO) 2.9 % (21-51); MEAN CORPUSCULAR HGB CONC 31.7 g/dL (33.0-36.5); MEAN PLATELET VOLUME 9.4 FL (7.4-10.4); MONOCYTES # (AUTO) 1.3 X10'3 (0-0.9); MONOCYTES % (AUTO) 6.9 % (2-12); NEUTROPHILS # (AUTO) 15.9 X10'3 (1.8-7.7); NEUTROPHILS % (AUTO) 87.1 % (42-75); PLATELET COUNT 196 X10'3 (140-440); RED BLOOD COUNT 3.38 X10'6 (4.70-6.10); RED CELL DISTRIBUTION WIDTH 19.5 % (11.5-14.5); WHITE BLOOD COUNT 18.3 X10'3 (4.5-11.0)
[2023-03-02 14:05] LABS: ALANINE AMINOTRANSFERASE 31 U/L (12-78); ALBUMIN 3.2 G/DL (3.4-5.0); ALBUMIN/GLOBULIN RATIO 0.6 (1.1-1.5); ALKALINE PHOSPHATASE 154 IU/L (46-116); ANION GAP 3 (8-16); ASPARTATE AMINO TRANSFERASE 35 U/L (10-37); BILIRUBIN,TOTAL 1.7 MG/DL (0.1-1.0); BLOOD UREA NITROGEN 21 MG/DL (7-18); CALCIUM 9.6 MG/DL (8.5-10.1); CHLORIDE 97 MMOL/L (99-107); CREATININE 4.22 MG/DL (0.60-1.10); GLUCOSE 93 MG/DL (70-104); POTASSIUM 3.7 MMOL/L (3.5-5.1); SODIUM 138 MMOL/L (135-145); TOTAL CARBON DIOXIDE 37.7 MMOL/L (24-32); TOTAL PROTEIN 8.8 G/DL (6.4-8.2); eGFR 14 ML/MIN
[2023-03-02 14:32] LABS: PLATELET ESTIMATE NORMAL
[2023-03-02 14:33] LABS: ANISOCYTOSIS 2+; ELLIPTOCYTES 1+; HYPOCHROMASIA 1+; POLYCHROMASIA FEW; STOMATOCYTES 1+
[2023-03-02 14:51] VITALS: BP 161/92
== END 2023-03-02 17:20 | disposition left against medical advice (07) ==
LOC: ER 13:07
DX: R06.02 Shortness of breath (principal); Z53.21 Procedure and treatment not carried out due to patient leaving prior to being seen by health care provider
CPT/HCPCS: 36415; 71046; 80053; 83880; 84484; 85008; 85025; 87040; 93005; 99281

== ENCOUNTER 2023-03-14 09:02 | Day surgery (SDC) | payer MEDICAID, MEDICARE, OTHER ==
[~2023-03-14] VITALS: Ht 185.4 cm; Wt 92.5 kg
[2023-03-14 09:20] VITALS: BP 128/63
[2023-03-14] MEDS ORDERED: normal saline 1000ml 1,000 ML IV SCH (09:50)
[2023-03-14] MEDS ORDERED: midazolam 1 mg/ML 2ml injection ONE ×2 (10:32→11:31)
[2023-03-14] MEDS ORDERED: fentaNYL/PF 50MCG/1 ML 2ML syringe ONE ×2 (10:32→11:32)
[2023-03-14] MEDS ORDERED: heparin 1,000unit/ml 10ml vial 10 ML ONE (10:32)
[2023-03-14] MEDS ORDERED: iohexol 300 MG/1 ML 50ml polymer ONE (11:22)
[2023-03-14 12:00] VITALS: BP 122/65
[2023-03-14 12:15] VITALS: BP 105/64
[2023-03-14 12:30] VITALS: BP 99/63
[2023-03-14 12:45] VITALS: BP 105/58
== END 2023-03-14 13:00 | disposition home or self-care (01) ==
LOC: SSTAY O 09:02
PROVIDERS: ATTEND Radiology Diagnostic Radiology
DX: I12.0 Hypertensive chronic kidney disease with stage 5 chronic kidney disease or end stage renal disease (principal); N18.6 End stage renal disease; I25.10 Atherosclerotic heart disease of native coronary artery without angina pectoris; Z95.1 Presence of aortocoronary bypass graft; Z79.899 Other long term (current) drug therapy; Z91.011 Allergy to milk products; Z82.49 Family history of ischemic heart disease and other diseases of the circulatory system
CPT/HCPCS: 36558; 76937; 77001; 99152; 99153; C1750; J1644; J2250; J3010; J7030; Q9967; A4620; C1769

== ENCOUNTER 2024-04-25 08:51 | Day surgery (SDC) | payer OTHER ==
[~2024-04-25] VITALS: Ht 185.4 cm; Wt 94.8 kg
[2024-04-25] VITALS (12 sets, daily range): BP systolic 120–157; BP diastolic 68–97; PULSE 75–87; RESP 9–16; TEMP 98.6; O2SAT 93–99
[~2024-04-25 08:51] MED LIST changes: -CINA30TA7 PO; -LEVO250T74 PO; -LOSA50TA64 PO; +ONDA-243 PO; -ONDA4TAB12 PO
[2024-04-25 09:48] LABS: BASOPHILS # (AUTO) 0.1 X10'3 (0-0.2); BASOPHILS % (AUTO) 1.9 % (0-1); EOSINOPHILS # (AUTO) 0.8 X10'3 (0-0.9); EOSINOPHILS % (AUTO) 11.1 % (0-6); HEMATOCRIT 36.1 % (42.0-52.0); HEMOGLOBIN 11.3 g/dl (14.0-17.9); LYMPHOCYTES # (AUTO) 1.2 X10'3 (1.1-4.8); LYMPHOCYTES % (AUTO) 17.7 % (21-51); MEAN CORPUSCULAR HEMOGLOBIN 28.1 PG (27.0-31.0); MEAN CORPUSCULAR HGB CONC 31.2 g/dL (33.0-36.5); MEAN PLATELET VOLUME 8.1 FL (7.4-10.4); MONOCYTES # (AUTO) 1.2 X10'3 (0-0.9); MONOCYTES % (AUTO) 17.1 % (2-12); NEUTROPHILS # (AUTO) 3.7 X10'3 (1.8-7.7); NEUTROPHILS % (AUTO) 52.2 % (42-75); PLATELET COUNT 234 X10'3 (140-440); RED BLOOD COUNT 4.01 X10'6 (4.70-6.10)
[2024-04-25 09:54] LABS: APTT 29 SECONDS (22-32); INR 1.1 INR
[2024-04-25 10:02] LABS: ALBUMIN 2.8 G/DL (3.4-5.0); ANION GAP 13 (8-16); BLOOD UREA NITROGEN 62 MG/DL (7-18); BUN/CREATININE RATIO 6.5 (10.0-20.0); CALCIUM 8.1 MG/DL (8.5-10.1); CHLORIDE 97 MMOL/L (99-107); CREATININE 9.58 MG/DL (0.60-1.10); GLUCOSE 113 MG/DL (70-104); POTASSIUM 4.5 MMOL/L (3.5-5.1); SODIUM 139 MMOL/L (135-145); TOTAL CARBON DIOXIDE 28.6 MMOL/L (24-32); eCRCL 9 ML/MIN; eGFR 6 ML/MIN
[2024-04-25] MEDS ORDERED: DOCU-148 PO (10:30)
[2024-04-25] MEDS ORDERED: LOSA100T58 PO (10:30)
[2024-04-25] MEDS ORDERED: ZINC220C7 PO (10:30)
[2024-04-25] MEDS: LORazepam 0.5 MG tablet PO PRN (10:50)
[2024-04-25] MEDS: normal saline 1,000 ML IV SCH (10:51)
[2024-04-25] MEDS: diphenhydrAMINE 25mg capsule PO PRN (10:51)
[2024-04-25 10:52] LABS: PLATELET ESTIMATE NORMAL
[2024-04-25 10:53] LABS: ANISOCYTOSIS 3+; ELLIPTOCYTES FEW; TARGET CELLS FEW
[2024-04-25] MEDS ORDERED: heparin 1,000unit/ml 10ml vial 10 ML ONE (11:29)
[2024-04-25] MEDS ORDERED: LIDOcaine 1% 30ml preserv. free vial ONE (11:29)
[2024-04-25] MEDS ORDERED: iohexol 350 MG/ML 50ML vial IV ONE (11:29)
[2024-04-25] MEDS ORDERED: iohexol 350MG/ML 100ml bottle IV ONE (11:29)
[2024-04-25] MEDS ORDERED: midazolam 1 mg/ML 2ml injection ONE ×3 (11:29→13:06)
[2024-04-25] MEDS ORDERED: fentaNYL/PF 50MCG/1 ML 2ML syringe ONE (11:29)
[2024-04-25] MEDS ORDERED: nitroGLYCERIN 500mcg/5mL D5W 5 ML IV ONE (11:30)
[2024-04-25] MEDS: HYDROcodone/acetaminophen 10/325mg tab PO ONE (15:38)
[2024-04-25] MEDS: ondansetron 4mg rapidly disintigrating tab PO ONE (15:40)
== END 2024-04-25 18:49 | disposition home or self-care (01) ==
LOC: SSTAY O 08:51
PROVIDERS: ATTEND Internal Medicine Cardiovascular Disease
DX: I25.10 Atherosclerotic heart disease of native coronary artery without angina pectoris (principal); I44.5 Left posterior fascicular block; I13.2 Hypertensive heart and chronic kidney disease with heart failure and with stage 5 chronic kidney disease, or end stage renal disease; N18.5 Chronic kidney disease, stage 5; I50.22 Chronic systolic (congestive) heart failure; E78.5 Hyperlipidemia, unspecified; I42.0 Dilated cardiomyopathy; F32.A Depression, unspecified; G47.00 Insomnia, unspecified; I25.2 Old myocardial infarction; Z79.82 Long term (current) use of aspirin; Z79.891 Long term (current) use of opiate analgesic; Z79.899 Other long term (current) drug therapy; Z90.49 Acquired absence of other specified parts of digestive tract; Z95.1 Presence of aortocoronary bypass graft; Z95.5 Presence of coronary angioplasty implant and graft; Z98.890 Other specified postprocedural states
CPT/HCPCS: 36415; 76937; 80048; 85025; 85610; 85730; 93005; 93459; 99152; 99153; A6258; J1644; J2250; J3010; J3490; J7030; Q0163; Q9967; 85008; C1725; C1760

== ENCOUNTER 2024-11-12 11:00 | Inpatient (IN) | payer MEDICARE, MEDICAID ==
[~2024-11-12] VITALS: Ht 185.4 cm; Wt 101.0 kg
[~2024-11-12 11:00] MED LIST changes: -CARV25TA3 PO; +HYDR-3968 PO; -HYDR-3972 PO; -NIFE-72 PO; -ROSU20TA73 PO; +ZINC220C7 PO
[2024-11-19] MEDS ORDERED: CARV6.253 PO (16:06)
[2024-11-19] MEDS ORDERED: CHLO25TA68 PO (16:06)
[2024-11-19] MEDS ORDERED: ERGO50CA PO (16:06)
[2024-11-19 16:38] LABS: ALKALINE PHOSPHATASE 155 IU/L (46-116); BLOOD UREA NITROGEN 24 MG/DL (7-18); BUN/CREATININE RATIO 4.5 (10.0-20.0); CALCIUM 9.1 MG/DL (8.5-10.1); CHLORIDE 98 MMOL/L (99-107); CREATININE 5.32 MG/DL (0.60-1.10); PRE OP ALT 22 U/L (30-65); PRE OP ANION GAP 7 (8-16); PRE OP AST 19 U/L (10-37); PRE OP BILIRUB, TOTAL 0.8 MG/DL (0.0-1.0); PRE OP GLUCOSE 101 MG/DL (70-104); PRE OP POTASSIUM 4.3 MMOL/L (3.4-5.1); PRE OP SODIUM 141 MMOL/L (135-145); TOTAL CARBON DIOXIDE 36.2 MMOL/L (24-32); TOTAL PROTEIN 8.7 G/DL (6.4-8.2); eGFR 11 ML/MIN
[2024-11-19 16:40] LABS: ALBUMIN 3.1 G/DL (3.4-5.0); ALBUMIN/GLOBULIN RATIO 0.6 (1.1-1.5)
[2024-11-19 16:48] LABS: BASOPHILS # (AUTO) 0.2 X10'3 (0-0.2); BASOPHILS % (AUTO) 1.9 % (0-1); EOSINOPHILS # (AUTO) 0.6 X10'3 (0-0.9); EOSINOPHILS % (AUTO) 6.5 % (0-6); LYMPHOCYTES # (AUTO) 0.7 X10'3 (1.1-4.8); LYMPHOCYTES % (AUTO) 8.6 % (21-51); MEAN CORPUSCULAR HEMOGLOBIN 30.3 PG (27.0-31.0); MEAN CORPUSCULAR HGB CONC 32.7 g/dL (33.0-36.5); MEAN CORPUSCULAR VOLUME 92.9 FL (78-98); MEAN PLATELET VOLUME 8.1 FL (7.4-10.4); MONOCYTES # (AUTO) 0.9 X10'3 (0-0.9); MONOCYTES % (AUTO) 10.2 % (2-12); NEUTROPHILS # (AUTO) 6.3 X10'3 (1.8-7.7); NEUTROPHILS % (AUTO) 72.8 % (42-75); PRE OP HEMATOCRIT 38.5 % (42.0-52.0); PRE OP HEMOGLOBIN 12.6 g/dL (14.0-17.9); PRE OP PLATELET COUNT 403 X10'3 (140-440); PRE OP WHITE BLOOD COUNT 8.7 10'3 (4.8-10.8); RED BLOOD COUNT 4.15 X10'6 (4.70-6.10); RED CELL DISTRIBUTION WIDTH 17.1 % (11.5-14.5)
[2024-11-25] MEDS ORDERED: LOSA50TA64 PO (13:59)
[2024-11-26] VITALS (34 sets, daily range): BP systolic 104–176; BP diastolic 57–111; PULSE 62–113; RESP 12–22; TEMP 97.7–98.4; O2SAT 93–100
[2024-11-26] MEDS: famotidine 20mg tablet PO ONE (05:59)
[2024-11-26] MEDS: VANCOMYCIN/H2O 1.5g/300mL PB 300 ML IV ONE (06:00)
[2024-11-26] MEDS: normal saline 1000ml 1,000 ML IV SCH (06:07)
[2024-11-26] MEDS: ceFAZolin 2gm in dextrose, iso 50 ML IV ONE (06:12)
[2024-11-26] MEDS ORDERED: vancomycin 1,000mg inj ONE (06:49)
[2024-11-26] MEDS: ondansetron/PF 4mg/2ml inj IV ONE (06:56)
[2024-11-26] MEDS ORDERED: BUPIVAcaine/dex-water/PF 7.5 mg/ml 2ml ampul ONE (07:30)
[2024-11-26] MEDS ORDERED: MIDAZolam 1 MG/ML 5ML VIAL ONE ×2 (07:43→09:25)
[2024-11-26] MEDS ORDERED: fentaNYL/PF 50MCG/1 ML 2ML syringe ONE (07:43)
[2024-11-26] MEDS ORDERED: propofol inj 20 ML IV ONE ×2 (07:55→10:16)
[2024-11-26] MEDS ORDERED: dexamethasone sod phosphate 4mg/ml inj. ONE (10:16)
[2024-11-26] MEDS ORDERED: labetalol 20mg/4ml (5mg/ml) syringe IV PRN (10:35)
[2024-11-26] MEDS ORDERED: meperidine/PF 25mg/ml syringe IV PRN (10:35)
[2024-11-26] MEDS ORDERED: ondansetron/PF 4mg/2ml inj IV PRN (10:35)
[2024-11-26] MEDS ORDERED: proCHLORperazine 10 MG/2 ml inj IV PRN (10:35)
[2024-11-26] MEDS ORDERED: morphine 2 MG/ML inj. syringe IV PRN (10:35)
[2024-11-26] MEDS ORDERED: enalaprilat 1.25mg/ml 2ml vial IV PRN (10:35)
[2024-11-26] MEDS: ROPIVAcaine 0.5% (5mg/ml) 30ml vial IJ ONE (10:45)
[2024-11-26] MEDS ORDERED: BUPIVAcaine/PF 7.5mg/ml (0.75%) 10ml vial ONE (11:13)
[2024-11-26] MEDS ORDERED: ROPIVAcaine 0.5% (5mg/ml) 30ml vial ONE (11:13)
[2024-11-26] MEDS ORDERED: naloxone 0.4 mg/ml inj IV PRN ×2 (11:15→16:25)
[2024-11-26] MEDS: morphine 4 MG/ML inj SYRINge IV PRN (12:00)
[2024-11-26] MEDS: ROPIVAcaine inj 200 MG, epiNEPHrine inj 0.6 MG, morphine 10mg/ml inj. 5 MG in normal sa... IU ONE (13:50)
[2024-11-26] MEDS: acetaminophen 1,000mg/100ml IV 100 ML IV ONE (14:11)
[2024-11-26] MEDS: HYDROmorphone 1 mg/ml syringe IV PRN ×2 (14:12→15:19)
[2024-11-26] MEDS: midazolam 1 mg/ML 2ml injection ONE (14:22)
[2024-11-26] MEDS: DOCUMENT DATE & TIME OF BETA-BLOCKER PO ONE (14:55)
[2024-11-26] MEDS: ringers solution, lacted 1,000 ML IV SCH (14:56)
[2024-11-26] MEDS ORDERED: HYDROmorphone 1 mg/ml syringe IV PRN (15:25)
[2024-11-26] MEDS: aspirin 325mg tablet, delayed-release (Ecotrin) PO SCH (15:25)
[2024-11-26] MEDS ORDERED: morphine 4 MG/ML inj SYRINge IV PRN (15:25)
[2024-11-26] MEDS ORDERED: HYDROcodone/acetaminophen 10/325mg tab PO PRN (15:25)
[2024-11-26] MEDS: LIDOcaine 1% (10mg/ml) 2ml vial SQ ONE (16:07)
[2024-11-26] MEDS ORDERED: PCA WASTE DOCUMENTATION 1 MG ML MC SCH (16:25)
[2024-11-26] MEDS ORDERED: HYDROmorph/NS 0.2 mg/ml PCA 100 ML IV SCH (16:25)
[2024-11-26] MEDS: HYDROmorphone 1 mg/ml syringe IV ONE (16:29)
[2024-11-26] MEDS: pantoprazole 40 MG vial IV SCH (16:31)
[2024-11-26] MEDS: HYDROcodone/acetaminophen 10/325mg tab PO PRN (16:32)
[2024-11-26] MEDS: HYDROmorph/NS 0.2 mg/ml PCA 100 ML IV SCH (17:27)
[2024-11-26] MEDS ORDERED: vancomycin/NS 1 GM ADD-VANTAGE 250 ML X 1 DOSE IV PRN (19:35)
[2024-11-26 21:52] LABS: BASOPHILS % (AUTO) 0.2 % (0-1); EOSINOPHILS % (AUTO) 0 % (0-6); HEMATOCRIT 32.1 % (42.0-52.0); HEMOGLOBIN 10.5 g/dl (14.0-17.9); LYMPHOCYTES # (AUTO) 0.3 X10'3 (1.1-4.8); LYMPHOCYTES % (AUTO) 1.9 % (21-51); MEAN CORPUSCULAR HEMOGLOBIN 30.6 PG (27.0-31.0); MEAN CORPUSCULAR HGB CONC 32.8 g/dL (33.0-36.5); MEAN CORPUSCULAR VOLUME 93.2 FL (78-98); MONOCYTES # (AUTO) 0.8 X10'3 (0-0.9); MONOCYTES % (AUTO) 4.5 % (2-12); NEUTROPHILS # (AUTO) 16.3 X10'3 (1.8-7.7); NEUTROPHILS % (AUTO) 93.4 % (42-75); PLATELET COUNT 310 X10'3 (140-440); RED BLOOD COUNT 3.45 X10'6 (4.70-6.10); RED CELL DISTRIBUTION WIDTH 17.1 % (11.5-14.5); WHITE BLOOD COUNT 17.5 X10'3 (4.5-11.0)
[2024-11-26 22:10] LABS: ALANINE AMINOTRANSFERASE 28 U/L (12-78); ALBUMIN 3.3 G/DL (3.4-5.0); ALBUMIN/GLOBULIN RATIO 0.6 (1.1-1.5); ALKALINE PHOSPHATASE 160 IU/L (46-116); ANION GAP 12 (8-16); ASPARTATE AMINO TRANSFERASE 33 U/L (10-37); BILIRUBIN,TOTAL 0.6 MG/DL (0.1-1.0); BLOOD UREA NITROGEN 40 MG/DL (7-18); BUN/CREATININE RATIO 5.3 (10.0-20.0); CALCIUM 8.6 MG/DL (8.5-10.1); CHLORIDE 99 MMOL/L (99-107); CHOL/HDL RATIO 2.7 (0.00-4.99); CHOLESTEROL 150 MG/DL (0-200); CREATININE 7.52 MG/DL (0.60-1.10); GLUCOSE 130 MG/DL (70-104); HDL CHOLESTEROL 56 MG/DL (35-60); LDL CHOLESTEROL 63 MG/DL (50-100); SODIUM 139 MMOL/L (135-145); TOTAL PROTEIN 8.4 G/DL (6.4-8.2); TRIGLYCERIDES 44 MG/DL (20-135); eCRCL 11 ML/MIN; eGFR 7 ML/MIN
[2024-11-26 22:15] LABS: POTASSIUM 6.9 MMOL/L (3.5-5.1)
[2024-11-26 22:37] LABS: MAGNESIUM 3.2 MG/DL (1.5-2.4); PHOSPHORUS 6.2 MG/DL (2.3-4.5)
[2024-11-26] MEDS: carvedilol 6.25mg tablet PO SCH (22:46)
[2024-11-26] MEDS: mirtazapine 15mg tablet PO SCH (22:46)
[2024-11-26] MEDS: tamsulosin 0.4mg capsule PO SCH (22:46)
[2024-11-26] MEDS: zolpidem 5mg tablet PO SCH (23:26)
[2024-11-26] MEDS: sodium polystyrene sulfonate 15gm/60ml oral suspension PO ONE (23:53)
[2024-11-26] MEDS: dextrose 50%-water 50ml dispensing syringe IV ONE (23:57)
[2024-11-26] MEDS: insulin regular, human 10 units/0.1 ml syringe IV ONE (23:58)
[2024-11-26] MEDS: sodium bicarbonate (8.4%) 1 mEq/ml syringe IV ONE (23:59)
[2024-11-27] VITALS (18 sets, daily range): BP systolic 86–155; BP diastolic 49–88; PULSE 80–117; RESP 14–20; TEMP 97.5–98.4; O2SAT 95–99
[2024-11-27] MEDS: CALCIUM GLUC 1gm/50ml NACL,iso 50 ML IV PRN (00:10)
[2024-11-27] MEDS: VANCOMYCIN LEVEL IV SCH (03:00)
[2024-11-27 04:31] LABS: BASOPHILS % (AUTO) 0.3 % (0-1); EOSINOPHILS % (AUTO) 0 % (0-6); HEMATOCRIT 28.7 % (42.0-52.0); HEMOGLOBIN 9.6 g/dl (14.0-17.9); LYMPHOCYTES # (AUTO) 0.3 X10'3 (1.1-4.8); LYMPHOCYTES % (AUTO) 3.2 % (21-51); MEAN CORPUSCULAR HEMOGLOBIN 30.9 PG (27.0-31.0); MEAN CORPUSCULAR HGB CONC 33.4 g/dL (33.0-36.5); MEAN CORPUSCULAR VOLUME 92.4 FL (78-98); MEAN PLATELET VOLUME 8.4 FL (7.4-10.4); MONOCYTES # (AUTO) 1.4 X10'3 (0-0.9); NEUTROPHILS % (AUTO) 83.5 % (42-75); PLATELET COUNT 288 X10'3 (140-440); RED CELL DISTRIBUTION WIDTH 16.4 % (11.5-14.5); WHITE BLOOD COUNT 10.8 X10'3 (4.5-11.0)
[2024-11-27 04:48] LABS: ALANINE AMINOTRANSFERASE 19 U/L (12-78); ALBUMIN 2.8 G/DL (3.4-5.0); ALBUMIN/GLOBULIN RATIO 0.6 (1.1-1.5); ALKALINE PHOSPHATASE 135 IU/L (46-116); ANION GAP 10 (8-16); ASPARTATE AMINO TRANSFERASE 25 U/L (10-37); BILIRUBIN,TOTAL 0.5 MG/DL (0.1-1.0); BLOOD UREA NITROGEN 49 MG/DL (7-18); BUN/CREATININE RATIO 5.7 (10.0-20.0); CALCIUM 8.6 MG/DL (8.5-10.1); CHLORIDE 100 MMOL/L (99-107); CREATININE 8.54 MG/DL (0.60-1.10); GLUCOSE 198 MG/DL (70-104); MAGNESIUM 3.4 MG/DL (1.5-2.4); PHOSPHORUS 7.3 MG/DL (2.3-4.5); SODIUM 139 MMOL/L (135-145); TOTAL CARBON DIOXIDE 28.7 MMOL/L (24-32); TOTAL PROTEIN 7.5 G/DL (6.4-8.2); VANCOMYCIN,TROUGH 21.4 ug/mL (10.0-20.0); eCRCL 10 ML/MIN; eGFR 6 ML/MIN
[2024-11-27 04:53] LABS: POTASSIUM 6.3 MMOL/L (3.5-5.1)
[2024-11-27] MEDS: LIDOcaine 1% (10mg/ml) 2ml vial SQ ONE (08:16)
[2024-11-27] MEDS: EPOETIN ALFA-EPBX 20,000 UNIT/ML 1 ML MDV IV ONE (10:55)
[2024-11-27] MEDS: zinc sulfate 220mg capsule PO SCH (13:39)
[2024-11-27] MEDS: chlorproMAZINE 25mg tablet PO SCH (13:39)
[2024-11-27] MEDS: cholecalciferol (vitamin D3) 1,000 unit (25mcg) tablet PO SCH (13:40)
[2024-11-27] MEDS: losartan 50mg tablet PO SCH (13:40)
[2024-11-27 14:38] LABS: ALBUMIN 2.7 G/DL (3.4-5.0); ANION GAP 7 (8-16); BLOOD UREA NITROGEN 24 MG/DL (7-18); BUN/CREATININE RATIO 5.1 (10.0-20.0); CALCIUM 8.7 MG/DL (8.5-10.1); CHLORIDE 101 MMOL/L (99-107); CREATININE 4.72 MG/DL (0.60-1.10); GLUCOSE 186 MG/DL (70-104); POTASSIUM 4.2 MMOL/L (3.5-5.1); SODIUM 139 MMOL/L (135-145); TOTAL CARBON DIOXIDE 30.7 MMOL/L (24-32); eCRCL 18 ML/MIN; eGFR 13 ML/MIN
[2024-11-27] MEDS: ketorolac trometh 30MG/ML vial 30 MG/ML VIAL IV ONE (16:45)
[2024-11-27] MEDS: PCA WASTE DOCUMENTATION 1 MG ML MC SCH (17:05)
[2024-11-28 00:59] VITALS: BP 104/60; PULSE 101; RESP 18; O2SAT 98
[2024-11-28 06:00] VITALS: BP 112/62; PULSE 101; RESP 15; TEMP 98.7; O2SAT 98
[2024-11-28] MEDS ORDERED: EPOETIN ALFA-EPBX 20,000 UNIT/ML 1 ML MDV IV ONE (07:35)
[2024-11-28] MEDS ORDERED: albumin (human) 25% 100ml IV 100 ML IV PRN (07:35)
[2024-11-28 08:52] LABS: BASOPHILS # (AUTO) 0.1 X10'3 (0-0.2); BASOPHILS % (AUTO) 0.9 % (0-1); EOSINOPHILS # (AUTO) 0.1 X10'3 (0-0.9); EOSINOPHILS % (AUTO) 1.4 % (0-6); HEMATOCRIT 26.5 % (42.0-52.0); HEMOGLOBIN 8.6 g/dl (14.0-17.9); LYMPHOCYTES # (AUTO) 1.2 X10'3 (1.1-4.8); LYMPHOCYTES % (AUTO) 12.2 % (21-51); MEAN CORPUSCULAR HEMOGLOBIN 30.5 PG (27.0-31.0); MEAN CORPUSCULAR HGB CONC 32.4 g/dL (33.0-36.5); MEAN CORPUSCULAR VOLUME 94.1 FL (78-98); MONOCYTES # (AUTO) 1.5 X10'3 (0-0.9); MONOCYTES % (AUTO) 14.8 % (2-12); NEUTROPHILS # (AUTO) 6.9 X10'3 (1.8-7.7); NEUTROPHILS % (AUTO) 70.7 % (42-75); PLATELET COUNT 260 X10'3 (140-440); RED BLOOD COUNT 2.82 X10'6 (4.70-6.10); RED CELL DISTRIBUTION WIDTH 17.1 % (11.5-14.5); WHITE BLOOD COUNT 9.8 X10'3 (4.5-11.0)
[2024-11-28 09:13] LABS: ALANINE AMINOTRANSFERASE 10 U/L (12-78); ALBUMIN 2.5 G/DL (3.4-5.0); ALBUMIN/GLOBULIN RATIO 0.5 (1.1-1.5); ALKALINE PHOSPHATASE 112 IU/L (46-116); ANION GAP 10 (8-16); ASPARTATE AMINO TRANSFERASE 15 U/L (10-37); BILIRUBIN,TOTAL 0.4 MG/DL (0.1-1.0); BLOOD UREA NITROGEN 47 MG/DL (7-18); BUN/CREATININE RATIO 6.3 (10.0-20.0); CALCIUM 8.7 MG/DL (8.5-10.1); CHLORIDE 100 MMOL/L (99-107); CREATININE 7.45 MG/DL (0.60-1.10); GLUCOSE 115 MG/DL (70-104); POTASSIUM 4.3 MMOL/L (3.5-5.1); SODIUM 139 MMOL/L (135-145); TOTAL CARBON DIOXIDE 29.5 MMOL/L (24-32); TOTAL PROTEIN 7.2 G/DL (6.4-8.2); eCRCL 11 ML/MIN; eGFR 7 ML/MIN
[2024-11-28 10:00] VITALS: BP 81/47; PULSE 97; RESP 17; TEMP 97.4; O2SAT 96
[2024-11-28] MEDS: zinc sulfate 220mg capsule PO SCH (10:21)
[2024-11-28 11:11] LABS: HBSAG SCREEN Negative (Negative)
[2024-11-28] MEDS ORDERED: ASPI-1475 PO (12:43)
[2024-11-28 12:57] VITALS: BP 98/54; PULSE 105
[2024-11-28] MEDS ORDERED: vancomycin/NS 1 GM ADD-VANTAGE 250 ML X 1 DOSE IV ONE (14:00)
== END 2024-11-28 13:45 | disposition home or self-care (01) | DRG 469 ==
LOC: PAS IN 11-26 05:29 → ORTHO 4S 11-26 14:30
PROVIDERS: ADMIT Orthopaedic Surgery; ATTEND Orthopaedic Surgery
PROC: 3E0T3BZ Introduction of Anesthetic Agent into Peripheral Nerves and Plexi, Percutaneous Approach (ICD-10-PCS; 2024-11-26)
PROC: 3E0T33Z Introduction of Anti-inflammatory into Peripheral Nerves and Plexi, Percutaneous Approach (ICD-10-PCS; 2024-11-26)
PROC: 5A1D70Z Performance of Urinary Filtration, Intermittent, Less than 6 Hours Per Day (ICD-10-PCS; 2024-11-26)
PROC: 0SRD0J9 Replacement of Left Knee Joint with Synthetic Substitute, Cemented, Open Approach (ICD-10-PCS; principal; 2024-11-26 07:30)
PROC: 5A1D70Z Performance of Urinary Filtration, Intermittent, Less than 6 Hours Per Day (ICD-10-PCS; 2024-11-27)
DX: M17.12 Unilateral primary osteoarthritis, left knee (principal); N18.6 End stage renal disease; I12.0 Hypertensive chronic kidney disease with stage 5 chronic kidney disease or end stage renal disease; C90.00 Multiple myeloma not having achieved remission; I25.10 Atherosclerotic heart disease of native coronary artery without angina pectoris; E78.5 Hyperlipidemia, unspecified; N40.0 Benign prostatic hyperplasia without lower urinary tract symptoms; K21.9 Gastro-esophageal reflux disease without esophagitis; F41.9 Anxiety disorder, unspecified; E87.5 Hyperkalemia; G47.00 Insomnia, unspecified; G89.29 Other chronic pain; E11.22 Type 2 diabetes mellitus with diabetic chronic kidney disease; Z90.81 Acquired absence of spleen; Z95.1 Presence of aortocoronary bypass graft; Z99.2 Dependence on renal dialysis; Z90.49 Acquired absence of other specified parts of digestive tract; Z86.73 Personal history of transient ischemic attack (TIA), and cerebral infarction without residual deficits; Z79.899 Other long term (current) drug therapy
CPT/HCPCS: 36415; 73560; 80048; 80053; 80061; 80202; 82948; 83036; 83735; 84100; 84484; 85025; 87081; 87340; 93005; 97110; 97116; 97161; 97530; A4215; A4615; A6253; A6258; A6402; A6446; A6449; A6454; A7000; C1713; C1776; C9250; E1594; G0257; G0378; J0131; J0610; J0690; J1100; J1171; J1815; J1885; J2003; J2250; J2270; J2405; J2470; J2704; J2795; J3010; J3370; J3372; J3490; J7030; J7120; Q0161; Q4081

== ENCOUNTER 2024-12-04 14:16 | Emergency (ER) | payer MEDICARE, MEDICAID ==
[~2024-12-04] VITALS: Ht 185.4 cm; Wt 95.0 kg
[~2024-12-04 14:16] MED LIST changes: -ASPI-1053 PO; +ASPI-1475 PO; +CARV6.253 PO; +CHLO25TA68 PO; +ERGO50CA PO; +LOSA50TA64 PO
[2024-12-04] MEDS: oxyCODONE/APAP 10/325mg tablet PO ONE ×2 (16:17→17:40)
[2024-12-04 16:51] LABS: BASOPHILS # (AUTO) 0.1 X10'3 (0-0.2); BASOPHILS % (AUTO) 0.9 % (0-1); EOSINOPHILS # (AUTO) 0.6 X10'3 (0-0.9); EOSINOPHILS % (AUTO) 6.8 % (0-6); HEMATOCRIT 23.4 % (42.0-52.0); HEMOGLOBIN 7.9 g/dl (14.0-17.9); LYMPHOCYTES # (AUTO) 1.4 X10'3 (1.1-4.8); LYMPHOCYTES % (AUTO) 15.9 % (21-51); MEAN CORPUSCULAR HGB CONC 33.9 g/dL (33.0-36.5); MEAN CORPUSCULAR VOLUME 91.3 FL (78-98); MONOCYTES # (AUTO) 1.2 X10'3 (0-0.9); MONOCYTES % (AUTO) 13.7 % (2-12); NEUTROPHILS # (AUTO) 5.3 X10'3 (1.8-7.7); NEUTROPHILS % (AUTO) 62.7 % (42-75); PLATELET COUNT 403 X10'3 (140-440); RED BLOOD COUNT 2.56 X10'6 (4.70-6.10); RED CELL DISTRIBUTION WIDTH 16.9 % (11.5-14.5); WHITE BLOOD COUNT 8.5 X10'3 (4.5-11.0)
[2024-12-04 17:05] LABS: ALANINE AMINOTRANSFERASE 15 U/L (12-78); ALBUMIN 2.4 G/DL (3.4-5.0); ALBUMIN/GLOBULIN RATIO 0.4 (1.1-1.5); ALKALINE PHOSPHATASE 126 IU/L (46-116); ANION GAP 6 (8-16); ASPARTATE AMINO TRANSFERASE 16 U/L (10-37); BILIRUBIN,TOTAL 0.7 MG/DL (0.1-1.0); BLOOD UREA NITROGEN 41 MG/DL (7-18); BUN/CREATININE RATIO 6.2 (10.0-20.0); CALCIUM 8.9 MG/DL (8.5-10.1); CHLORIDE 98 MMOL/L (99-107); CREATININE 6.62 MG/DL (0.60-1.10); GLUCOSE 100 MG/DL (70-104); POTASSIUM 3.7 MMOL/L (3.5-5.1); SODIUM 142 MMOL/L (135-145); TOTAL CARBON DIOXIDE 37.9 MMOL/L (24-32); TOTAL PROTEIN 7.8 G/DL (6.4-8.2); eCRCL 13 ML/MIN; eGFR 8 ML/MIN
[2024-12-04 19:50] VITALS: BP 175/96; PULSE 96; RESP 16; TEMP 98.4; O2SAT 95
[2024-12-04] MEDS ORDERED: AMOX-117 PO (20:43)
[2024-12-04] MEDS: amox tr/potassium clavulanate 875/125mg TAB PO ONE (20:52)
[2024-12-04] MEDS: ondansetron 4mg rapidly disintigrating tab PO ONE (21:02)
== END 2024-12-04 21:13 | disposition home or self-care (01) ==
LOC: ER 14:16
DX: G89.18 Other acute postprocedural pain (principal); I12.0 Hypertensive chronic kidney disease with stage 5 chronic kidney disease or end stage renal disease; I25.10 Atherosclerotic heart disease of native coronary artery without angina pectoris; L03.116 Cellulitis of left lower limb; N18.6 End stage renal disease; Z90.49 Acquired absence of other specified parts of digestive tract; Z96.652 Presence of left artificial knee joint; Z99.2 Dependence on renal dialysis; Z79.82 Long term (current) use of aspirin
CPT/HCPCS: 36415; 73560; 80053; 84145; 85025; 93005; 93971; 99285

== ENCOUNTER 2025-04-02 10:16 | Inpatient (IN) | payer MEDICARE, MEDICAID ==
[~2025-04-02] VITALS: Ht 185.4 cm; Wt 105.6 kg
[2025-04-02] VITALS (28 sets, daily range): BP systolic 134–170; BP diastolic 72–98; PULSE 74–96; RESP 10–22; TEMP 96.9–97; O2SAT 90–100
[~2025-04-02 10:16] MED LIST changes: +ASPI-1397 PO; -ASPI-1475 PO; +CARV25TA3 PO; -CARV6.253 PO; -FLO0.4C PO; +FURO40TA4 PO; -HYDR-3968 PO; +NIFE-72 PO; +POLY510P31 PO; +ROSU20TA98 PO; +TAMS-55 PO; +ZOLP-679 PO; -ZOLP10TA PO; +amiodarone 50MG/ML inj IV ONE
[2025-04-02] MEDS ORDERED: LIDOcaine 1% 30ml preserv. free vial ONE (10:22)
[2025-04-02] MEDS ORDERED: iohexol 350 MG/ML 50ML vial IV ONE (10:23)
[2025-04-02] MEDS ORDERED: heparin 1,000 UNITS/NS 500ml 500 ML ONE (10:23)
[2025-04-02] MEDS ORDERED: heparin 1,000unit/ml 10ml vial 0 ML ONE (10:23)
--- NOTE | 2025-04-02 10:29 | ELECTROCARDIOGRAPH REPORT ---
[facility] Test Date: 2025-04-02 Test Time: 10:19:50 Pat Name: RHONDA MALAVE Department: EMERGENCY ROOM Room: Gender: M Supervisor Respiratory: JOSE LUIS : 1960 Requested By: MEDINA SMITH Order Number: [id number] Reading MD: Measurements Intervals [place] Rate: 102 P: 47 NH: 115 QRS: -75 QRSD: 165 T: 77 QT: 548 QTc: 715 Interpretive Statements Sinus tachycardia Atrial premature complex Sinus pause LAE, consider biatrial enlargement IVCD, consider atypical RBBB Left ventricular hypertrophy Inferolateral infarct, acute Please click the below link to view image of tracing.
[2025-04-02] MEDS: dextrose 50%-water 50ml dispensing syringe IV ONE ×3 (10:39→23:40)
[2025-04-02] MEDS: CALCIUM GLUC 1gm/50ml NACL,iso 50 ML IV ONE ×2 (10:40)
[2025-04-02] MEDS: insulin regular, human 10 units/0.1 ml syringe IV ONE ×3 (10:46→23:42)
[2025-04-02] MEDS: amiodarone 50MG/ML inj IV ONE (10:46)
[2025-04-02 10:58] LABS: APTT 29 SECONDS (22-32); INR 1.1 INR; MEAN PLATELET VOLUME 9.4 FL (7.4-10.4); RED CELL DISTRIBUTION WIDTH 17.2 % (11.5-14.5)
[2025-04-02 11:05] LABS: CREATININE 12.77 MG/DL (0.60-1.10); PRO BRAIN NATRIURETIC PEPTIDE 21205 PG/ML (0-125); TOTAL CARBON DIOXIDE 31.7 MMOL/L (24-32); eCRCL 7 ML/MIN; eGFR 4 ML/MIN
[2025-04-02 11:11] LABS: PHOSPHORUS 9.1 MG/DL (2.3-4.5)
[2025-04-02] MEDS: etomidate 2mg/ml inj. IV ONE (11:16)
--- NOTE | 2025-04-02 11:19 | RADIOLOGY REPORT ---
EXAM: DI CHEST,SINGLE VIEW Indication: sob Technique: Single frontal view of the chest was obtained Comparison: DI CHEST,SINGLE VIEW on DOS: 03/15/25, DI CHEST,SINGLE VIEW on DOS: 05/19/24, CHEST,SINGLE VIEW on DOS: 12/27/22, CHEST,SINGLE VIEW on DOS: 12/23/22 FINDINGS: Lines and Tubes: None Lungs: Pulmonary edema. Pleura: Small right and trace left pleural effusion. No pneumothorax. Cardiomediastinal contours: Cardiomegaly. Atherosclerotic vascular calcifications of the thoracic aor ta are noted. Bones: No acute osseous abnormality. IMPRESSION: Cardiomegaly and pulmonary edema with small right and trace left pleural effusion
[2025-04-02 11:24] LABS: ABG BASE EXCESS 1.0 mmol/L (-2.0-3.0); ABG HCO3 26.5 mmol/L (21.0-28.0); ABG OXYGEN SATURATION 97.9 % (94.0-98.0); ABG PCO2 (T) 45.0 mmHg (35.0-48.0); ABG PH (T) 7.386 (7.350-7.450); ABG PO2 (T) 113.9 mmHg (83.0-108.0); ALLEN'S TEST POSITIVE; FCOHb 0.5 % (0.5-1.5); FHHb 2.1 % (0.0-5.0); FIO2 40.0 mmHg/%; FLOW 5 L/min; FMetHb 0.3 % (0.0-1.5); FO2Hb 97.1 % (94.0-98.0); MODE NASAL CANNULA; PATIENT TEMPERATURE 36.7; TOTAL HEMOGLOBIN 12.0 G/dl (13.5-17.5)
[2025-04-02] MEDS ORDERED: albumin (human) 25% 100ml IV 100 ML IV PRN (11:50)
[2025-04-02] MEDS ORDERED: ondansetron/PF 4mg/2ml inj IV PRN (12:00)
[2025-04-02] MEDS ORDERED: magnesium hydroxide 30ml (MOM) UD suspension PO PRN (12:00)
[2025-04-02] MEDS ORDERED: ipratropium/albuterol 3ml nebule NEB PRN (12:00)
[2025-04-02] MEDS ORDERED: albuterol 2.5 MG/3 ML nebule NEB ONE (12:10)
[2025-04-02] MEDS ORDERED: magnesium sulf-water 2g/50mL 50 ML IV PRN (12:10)
[2025-04-02] MEDS ORDERED: magnesium sulf-water 4G/100mL 100 ML IV PRN (12:10)
[2025-04-02] MEDS: K and/or MAG REPLACEMENT MC SCH (12:10)
[2025-04-02] MEDS ORDERED: potassium Cl 20 mEq SR tablet PO PRN ×2 (12:10)
[2025-04-02] MEDS ORDERED: CALCIUM GLUC 1gm/50ml NACL,iso 50 ML IV PRN (12:10)
--- NOTE | 2025-04-02 12:14 | HISTORY AND PHYSICAL-Residence ---
History & Physical Providers to CC Resident Creating Document: BRIAN ELLIOTT, RES ~ History of Present Illness Primary Medical Doctor: Turner Garcia MD Reason for Admit\Complaint: Shortness of breathe, sustained V-tach History of Present Illness 64-year-old male with past medical history of ESRD on maintenance hemodialysis(on Sunday with Dr. Cha)., adjustment disorder, type 2 diabetes mellitus, hyperglycemia, gout, multiple myeloma BPH, hepatic vein thrombosis, malignant hypertension, coronary artery disease, anemia, acute DVT, myoclonic jerks, chronic left knee effusion presented to ER with a chief complaints of shortness of breathe associated with orthopnea and PND for the past 2 days and he missed unknown number of dialysis cycles he does not remember it at [facility]. He endorses generalized weakness, decreased energy levels, malaise, excessive sleepiness, swelling of legs for the past few week. He supposed to get surgery for left knee for patellar tendon. He do reports AV fistula on left upper arm(created 2 years back). He denied chest pain, abdominal pain, abdominal distention, wheezing, vomiting, hematemesis, melena, hematochezia. Course in the ER: In view of tall T-waves, STEMI alert were called but it is not a STEMI per Dr. PHAM and patient had Sustained V-tach for 10 minutes and shocked in ER .received Humulin and dextrose, 2 doses of calcium gluconate for hyperkalemia and we were called for admission. Allergies: Coded Allergies: No Known Drug Allergies (Verified Allergy, Unknown, 04/25/24) lactose (Unverified Adverse Reaction, Unknown, 05/19/24) latose intolerant per pt Home Medications Home Medications Active Reported Aspirin EC (Aspirin) 81 Mg Tablet.dr 1 Tab PO DAILY Nifedipine Er (Nifedipine) 30 Mg Tablet.sa 1 Tab PO DAILY [id number] (Polyethylene Glycol 3350) 17 Gram/Dose Powder 17 Gm PO DAILY Rosuvastatin Calcium 20 Mg Tablet 1 Tab PO HS Furosemide 40 Mg Tablet 1 Tab PO DAILY Carvedilol 25 Mg Tablet 1 Tab PO BID Losartan Potassium 50 Mg Tablet 1 Tab PO DAILY 30 Days Chlorpromazine HCl 25 Mg Tablet 1 Tab PO DAILY Vitamin D2 (Ergocalciferol (Vitamin D2)) 50 Mcg (2000 Unit) Capsule 1 Cap PO DAILY Zinc-220 (Zinc Sulfate) 50 Mg Zinc (220 Mg) Capsule 1 Cap PO DAILY Pantoprazole Sodium 40 Mg Tablet.dr 1 Tab PO DAILY Famotidine 40 Mg Tablet 1 Tab PO DAILY MS CONTIN tablet (Morphine Sulfate) 30 Mg Tablet.sa 1 Tab PO PRN PRN Flomax* (Tamsulosin HCl) 0.4 Mg Cap.sr.24h 0.4 Mg PO BID Ondansetron Odt (Ondansetron HCl) 4 Mg Tab.rapdis 1 Tab PO EVERY 4 TO 6 HOURS PRN Mirtazapine 15 Mg Tablet 1 Tab PO HS Ambien (Zolpidem Tartrate) 10 Mg Tablet 1 Tab PO HS 30 Days Past Medical History Past Medical History Adjustment disorder GERD Hypertension Chronic pain Type 2 diabetes mellitus BPH Malignant hypertension Esrd with electrolyte abnormalities Hepatic vein thrombosis Rotator cuff injury CAD Multiple myeloma Anemia in chronic kidney disease Acute DVT history Lateral subluxation of the patella 2/2 quadricep fracture postop total knee arthroplasty and chronic knee effusion Quadricep fracture postop total knee arthroplasty no acute change. Myoclonic jerks secondary to uremia Normocytic microchromic anemia Past Surgical History Surgical History Comment abdominal surgery, angioplasty, appendectomy splenectomy Status post TKR Status post CABG 5 vessel Family History Family History: (Cancer) Malignant carcinoid tumor FATHER FH: hypertension FATHER Past Social History Smoking: Non-Smoker Alcohol Use: None Drug Use: None Lives with: Alone Lives In: Home Occupation: employed ROS All Other Systems: Reviewed and Negative ROS Reviewed in full and negative except for positive pertinent as in HPI Exam Vitals: Vital Signs Date Time Temp Pulse Resp B/P (MAP) Pulse Ox O2 Delivery O2 Flow Rate FiO2 04/02/25 11:17 98.1 84 18 171/107 (128) 100 4.0 04/02/25 10:47 40 General: General: Patient is awake, alert, oriented x4 in no acute distress, edematous. Head: Normocephalic and atraumatic. No JVD, no carotid upstroke Eyes: Conjunctival normal. EOMI. PERRL. Pallor is present ENT: Mucous membranes moist. Neck: Supple, trachea is midline. Respiratory system: Bilateral normal vesicular breath sounds are heard. Bilateral crepitations in the infrascapular and interscapular areas. Cardiac: RRR without murmurs, gallops, or rubs. Abd: Soft, nondistended, nontender, with normoactive bowel sounds. No guarding, rebound, or rigidity. Nervous system: No focal neurological deficits. Diagnostic Data Last Recorded Lab Results: 04/02/25 1028 04/02/25 1028 Diagnostic Data: Laboratory Tests Test 04/02/25 10:28 Prothrombin Time 10.9 SECONDS (9.0-12.0) INR International Normalized Ratio 1.1 INR Activated Partial Thromboplast Time 29 SECONDS (22-32) Coagulation Comments Advance Care Planning Advanced Care planning: Add on additional 30 min Additional Plan Sustained V-tach with hypotension status post defibrillation Initially STEMI alert were called and Dr. Pham thought that tall T-waves he has due to hyperkalemia secondary to ESRD ,noncompliant with dialysis Vitals are doing good after the defibrillation with 200 joules and VT subsided. Received 2 doses of calcium gluconate, 150 mg IV amiodarone, regular insulin 10 units and 50 mL of 50% dextrose Dr. Hull in ER defibrillated with 200 joules at 10:39 a.m. because of the low blood pressure it is, 89/53 . Patient is symptomatically and hemodynamically better after defibrillation. We will continue to monitor telemetry Acute hypoxemic respiratory failure secondary to volume overload YOSHI and chronic kidney disease, ESRD , Noncompliant with Hemodialysis Hyperkalemia Hypocalcemia Hyperphosphatemia Hypermagnesemia Serum creatinine is 12.77, BUN is elevated to 74, carbon dioxide is 31.7 Please previous serum creatinine is 7.4 on 03/18/2025. Troponins are negative but proBNP is super elevated and it could be secondary to ESRD. Dr. Mcfadden is on board. He is getting hemodialysis which could help his electrolyte to settle down to normal. On hyperkalemia management protocol & replacement protocol Left knee chronic effusion Lateral subluxation of the patella secondary to quadricep fracture postop total knee arthroplasty. Quadricep fracture postop total knee arthroplasty no acute change. He is supposed to undergo surgery for patellar tendon repair by Dr. Garcia. Normocytic normochromic anemia secondary to ESRD Anemia of chronic disease Serum hemoglobin is in 11.4 Monitor H& H and we will give Retacrit if hemoglobin is less than 10. Adjustment disorder Mirtazapine 15 mg, zolpidem 10 mg GERD On pantoprazole 40 mg p.o. daily before breakfast Uncontrolled Hypertension CAD status post CABG On losartan 50 mg, Lasix 40 mg, carvedilol 25 mg p.o. b.i.d., nifedipine 30 mg On aspirin 81 mg and 40 mg of atorvastatin Chronic pain On morphine 30 mg p.o. p.r.n. Type 2 diabetes mellitus A1c is 6 on 11/26/2024 Glucose is in 150s Not on insulin protocol Will continue to monitor glucose target of 140-180 BPH On medications of tamsulosin 0.4 mg p.o. b.i.d. Hepatic vein thrombosis Rotator cuff injury Multiple myeloma Acute DVT history Myoclonic jerks Not on any medications for above problems Awaiting med rec Code status: Full code Diet: Renal diet Disposition: Per KAROLINA his code status is DNR but today in ER discuss her code status with him and he wants to be in full code. Brian Elliott IM Resident PGY 2 Date of Service: Apr 02, 2025 Billing Provider: VIRAJ QUIROGA MD, VENKATESH, RES Apr 02, 2025 12:14
[2025-04-02] MEDS: LIDOcaine 1% (10mg/ml) 2ml vial SQ ONE (13:45)
[2025-04-02] MEDS: aspirin 81mg, enteric-coated 1 TAB TABLET.DR PO ONE (17:50)
[2025-04-02] MEDS ORDERED: hydrALAZINE 20mg/ml inj. IV PRN (17:55)
--- NOTE | 2025-04-02 19:12 | CONSULTATION REPORT ---
Consult Providers to CC ~ History of Present Illness Reason for Admit\Complaint: Note in error History of Present Illness Note in error Allergies: Coded Allergies: No Known Drug Allergies (Verified Allergy, Unknown, 04/25/24) lactose (Unverified Adverse Reaction, Unknown, 05/19/24) latose intolerant per pt Home Medications Home Medications Active Reported Aspirin EC (Aspirin) 81 Mg Tablet.dr 1 Tab PO DAILY Nifedipine Er (Nifedipine) 30 Mg Tablet.sa 1 Tab PO DAILY [id number] (Polyethylene Glycol 3350) 17 Gram/Dose Powder 17 Gm PO DAILY Rosuvastatin Calcium 20 Mg Tablet 1 Tab PO HS Furosemide 40 Mg Tablet 1 Tab PO DAILY Carvedilol 25 Mg Tablet 1 Tab PO BID Losartan Potassium 50 Mg Tablet 1 Tab PO DAILY 30 Days Chlorpromazine HCl 25 Mg Tablet 1 Tab PO DAILY Vitamin D2 (Ergocalciferol (Vitamin D2)) 50 Mcg (2000 Unit) Capsule 1 Cap PO DAILY Zinc-220 (Zinc Sulfate) 50 Mg Zinc (220 Mg) Capsule 1 Cap PO DAILY Pantoprazole Sodium 40 Mg Tablet.dr 1 Tab PO DAILY Famotidine 40 Mg Tablet 1 Tab PO DAILY MS CONTIN tablet (Morphine Sulfate) 30 Mg Tablet.sa 1 Tab PO PRN PRN Flomax* (Tamsulosin HCl) 0.4 Mg Cap.sr.24h 0.4 Mg PO BID Ondansetron Odt (Ondansetron HCl) 4 Mg Tab.rapdis 1 Tab PO EVERY 4 TO 6 HOURS PRN Mirtazapine 15 Mg Tablet 1 Tab PO HS Ambien (Zolpidem Tartrate) 10 Mg Tablet 1 Tab PO HS 30 Days Family History Family History: (Cancer) Malignant carcinoid tumor FATHER FH: hypertension FATHER Exam Vitals: Vital Signs Date Time Temp Pulse Resp B/P (MAP) Pulse Ox O2 Delivery O2 Flow Rate FiO2 04/02/25 18:00 96.8 89 11 153/85 (107) 96 Nasal Cannula 2.0 04/02/25 10:47 40 Diagnostic Data Last Recorded Lab Results: 04/02/25 1028 04/02/25 1028 Diagnostic Data: Laboratory Tests Test 04/02/25 10:28 Prothrombin Time 10.9 SECONDS (9.0-12.0) INR International Normalized Ratio 1.1 INR Activated Partial Thromboplast Time 29 SECONDS (22-32) Coagulation Comments Sepsis Screening Skin Color: Normal WALL,MAREK M III DO Apr 02, 2025 19:12
[2025-04-02] MEDS: heparin, porcine 5000 units/ml vial SQ SCH (19:39)
[2025-04-02] MEDS: morphine 4 MG/ML inj SYRINge IV PRN (19:41)
[2025-04-02] MEDS: HYDROcodone/acetaminophen 5mg/325mg tablet PO PRN (21:40)
[2025-04-02 22:23] LABS: CREATININE 8.76 MG/DL (0.60-1.10); TOTAL CARBON DIOXIDE 32.3 MMOL/L (24-32); eCRCL 10 ML/MIN; eGFR 6 ML/MIN
[2025-04-02] MEDS: sodium polystyrene sulfonate 15gm/60ml oral suspension PO ONE (23:30)
[2025-04-03] VITALS (23 sets, daily range): BP systolic 106–181; BP diastolic 48–95; PULSE 64–89; RESP 10–20; TEMP 97.6–98.2; O2SAT 92–100
[2025-04-03] MEDS ORDERED: etomidate 2mg/ml inj. ONE (02:00)
[2025-04-03 05:14] LABS: MEAN PLATELET VOLUME 10.0 FL (7.4-10.4); RED CELL DISTRIBUTION WIDTH 17.3 % (11.5-14.5)
[2025-04-03 05:36] LABS: CREATININE 9.55 MG/DL (0.60-1.10); TOTAL CARBON DIOXIDE 31.9 MMOL/L (24-32); eCRCL 9 ML/MIN; eGFR 6 ML/MIN
[2025-04-03] MEDS ORDERED: albumin (human) 25% 100ml IV 100 ML IV PRN (07:45)
[2025-04-03] MEDS: aspirin 81mg, enteric-coated 1 TAB TABLET.DR PO SCH (08:28)
[2025-04-03] MEDS: pantoprazole 40mg Tablet.DR PO SCH (08:28)
[2025-04-03] MEDS ORDERED: HYDR-3968 PO (11:05)
--- NOTE | 2025-04-03 11:39 | PROGRESS NOTE- Residence ---
Progress Note - Resident Providers to CC Resident Creating Document: JOSE FRANCISCORONAMANDYALBINA, RES ~ Central Line/PICC still needed: No Guzman-Non Protocol Guzman Indications Met/Not Met: F/C Indications Not Met Antibiotic Timeout Antibiotic Ordered?: No Subjective Patient came into the hospital with hyperkalemia with a potassium of 8.0. He had a V-tach episode in the ER, required cardioversion and was transferred to the ICU. He has remained stable overnight without any abnormal arrhythmias. After dialysis yesterday, his creatinine significantly improved and is continued to downgrade after hyperkalemia cocktail. Discussed in great detail regarding the plan of care after discharge. The patient states that he lives 1 hour away from the dialysis center and has to drive him to the center. He has a bad left knee since he had a replacement, he fell again in the knee leading to a patellar tendon rupture and is due for surgical repair of the knee by Dr. Garcia. Also discussed with Dr. Garcia who states that the patient's knee is difficult to fix. He does have [facility] worker but he states that the distance discussed with the dialysis center, the long hours of having to remain seated for dialysis with his bad knee makes him difficult to stay compliant with the procedure. He has also tried peritoneal dialysis before one year ago but was unsuccessful. As he lives in his own house, he is unwilling to move anywhere close to the dialysis center. On further discussion, he is accepting to go to a rehab or long-term care facility until he gets his knee repaired. Objective Vital Signs Date Time Temp Pulse Resp B/P (MAP) Pulse Ox O2 Delivery O2 Flow Rate FiO2 04/03/25 11:19 14 04/03/25 09:00 82 131/77 (95) 95 Nasal Cannula 2.0 04/03/25 06:00 97.7 04/02/25 21:24 21 Result Diagram: 04/03/25 0255 04/03/25 0255 General: Awake and Alert, no acute distress. HEENT: Conjunctiva pink, Sclera clear, Mucus Membranes moist. Resp: Unlabored. Lungs clear to auscultation bilaterally. Heart: Regular Rate and rhythm, normal S1 and S2, pansystolic aortic murmur Abdomen: Soft and non tender no organomegaly Extremities: No cyanosis,clubbing or edema. Skin: Warm and Dry. Coagulation Studies Laboratory Tests Test 04/02/25 10:28 Prothrombin Time 10.9 SECONDS (9.0-12.0) INR International Normalized Ratio 1.1 INR Activated Partial Thromboplast Time 29 SECONDS (22-32) Coagulation Comments Assessment Assessment 64-year-old male patient with a correlates mass medical history and ESRD (Sunday, Sunday, and Sunday) came into the ER with hyperkalemia, he developed significant bradycardia and went into V-tach requiring cardioversion in the ER. His initial presentation hyperkalemia was at 8.0. He was treated successfully with dialysis yesterday and is now currently hemodynamically stable. Plan Plan ESRD: History of multiple myeloma Dialysis on 4 times a week- Sunday, Sunday, and Sunday Hyperkalemia from noncompliance to dialysis Hyperkalemia cocktail given Status post dialysis on 04/02/2025- hyperkalemia improved Dialysis today; orders placed Continue monitoring for hemodynamic stability Electrolyte disturbances: Hyperkalemia- improving Hypocalcemia Hyperphosphatemia Hypermagnesemia Expect improve all electrolytes with the dialysis Left knee patellar tendon rupture: Status post prior knee replacement Scheduled for knee replacement on 04/08/25 Limiting his mobility and dialysis secondary to the above Normocytic normochromic anemia: Anemia of chronic disease Epogen with dialysis Uncontrolled Hypertension CAD status post CABG On losartan 50 mg, Lasix 40 mg, carvedilol 25 mg p.o. b.i.d., nifedipine 30 mg On aspirin 81 mg and 40 mg of atorvastatin Type 2 diabetes mellitus A1c is 6 on 11/26/2024 Glucose is in 150s Not on insulin protocol Continue maintaining glucose target between 140-180 Code status: Full code Diet: Renal diet Lines: PIV Disposition: Possible discharge today. We will get dialysis today. He is stable for discharge home today or tomorrow as per primary team. Albina Varela PGY3, Internal medicine resident Date of Service: Apr 03, 2025 Billing Provider: MAREK LAKE III, DEEPANJALI, RES Apr 03, 2025 11:39
[2025-04-03] MEDS: LIDOcaine 1% (10mg/ml) 2ml vial SQ ONE (13:34)
[2025-04-03] MEDS: heparin 1,000 units/ml 10ml inj HE ONE ×2 (13:34→13:35)
--- NOTE | 2025-04-03 14:51 | PROGRESS NOTE- Residence ---
Progress Note - Resident Providers to CC Resident Creating Document: FRITZ ELLIOTT RES ~ Antibiotic Timeout Antibiotic Ordered?: No Subjective Seen and examined the patient bedside. He has remained stable overnight without any abnormal arrhythmias. After dialysis yesterday, his creatinine and potassium significantly improved and is continued to downgrade after hyperkalemia cocktail. The problem for going to hemodialysis might be due to his left knee problem. Objective Vital Signs Date Time Temp Pulse Resp B/P (MAP) Pulse Ox O2 Delivery O2 Flow Rate FiO2 04/03/25 14:30 78 18 144/79 (100) 97 Room Air 04/03/25 13:45 97.9 2.0 04/02/25 21:24 21 Result Diagram: 04/03/2525404/03/25 025 General: Awake and Alert, oriented to time place person. no acute distress. HEENT: Conjunctiva pink, Sclera clear, Mucus Membranes moist. Resp: Unlabored. Lungs clear to auscultation bilaterally. Cardiovascular: Regular Rate and rhythm, normal S1 and S2, pansystolic aortic murmur Gastrointestinal: Soft and non tender no organomegaly Extremities: No cyanosis,clubbing. Bilateral 1+ pedal edema is present . Functional AV fistula on left upper extremity Skin: Warm and Dry Neurological system: No focal neurological deficits Coagulation Studies Laboratory Tests Test 04/02/25 10:28 Prothrombin Time 10.9 SECONDS (9.0-12.0) INR International Normalized Ratio 1.1 INR Activated Partial Thromboplast Time 29 SECONDS (22-32) Coagulation Comments Advance Care Planning Advanced Care planning: Add on additional 30 min Assessment Assessment 64-year-old male patient with a correlates mass medical history and ESRD (Sunday, Sunday, and Sunday) came into the ER with hyperkalemia, he developed significant bradycardia and went into V-tach requiring cardioversion in the ER. His initial presentation hyperkalemia was at 8.0. He was treated successfully with dialysis yesterday and is now currently hemodynamically stable. Plan Plan Sustained V-tach with hypotension status post defibrillation Initially STEMI alert were called and Dr. Oliver thought that tall T-waves he has due to hyperkalemia secondary to ESRD ,noncompliant with dialysis Vitals are doing good after the defibrillation with 200 joules and VT subsided. Received 2 doses of calcium gluconate, 150 mg IV amiodarone, regular insulin 10 units and 50 mL of 50% dextrose Dr. Hull in ER defibrillated with 200 joules at 10:39 a.m. because of the low blood pressure it is, 89/53 . Patient is symptomatically and hemodynamically better after defibrillation. We will continue to monitor telemetry Acute hypoxemic respiratory failure secondary to volume overload YOSHI and chronic kidney disease, ESRD , Noncompliant with Hemodialysis Hyperkalemia Hypocalcemia Hyperphosphatemia Hypermagnesemia Serum creatinine is 12.77, BUN is elevated to 74, carbon dioxide is 31.7 Please previous serum creatinine is 7.4 on 03/18/2025. Troponins are negative but proBNP is super elevated and it could be secondary to ESRD. Dr. Mcfadden is on board. He is getting hemodialysis which could help his electrolyte to settle down to normal. On hyperkalemia management protocol & replacement protocol On 04/03/2025 Dialysis on 4 times a week- Sunday, Sunday, and Sunday Hyperkalemia from noncompliance to dialysis and received Hyperkalemia cocktail. Status post dialysis on 04/02/2025- hyperkalemia improved and electrolytes imbalances are responding to hemodialysis. Getting 2nd cycle of hemodialysis Continue monitoring for hemodynamic stability Left knee chronic effusion Lateral subluxation of the patella secondary to quadricep fracture postop total knee arthroplasty. Quadricep fracture postop total knee arthroplasty no acute change. Status post prior knee replacement Scheduled for knee replacement on 04/08/[address] Garcia Limiting his mobility and dialysis secondary to the above Normocytic normochromic anemia secondary to ESRD Anemia of chronic disease Serum hemoglobin is in 11.4 Monitor H& H and we will give Retacrit if hemoglobin is less than 10. Epogen with dialysis Adjustment disorder Mirtazapine 15 mg, zolpidem 10 mg GERD On pantoprazole 40 mg p.o. daily before breakfast Uncontrolled Hypertension CAD status post CABG On losartan 50 mg, Lasix 40 mg, carvedilol 25 mg p.o. b.i.d., nifedipine 30 mg On aspirin 81 mg and 40 mg of atorvastatin Chronic pain On morphine 30 mg p.o. p.r.n. Type 2 diabetes mellitus A1c is 6 on 11/26/2024 Glucose is in 150s Not on insulin protocol Will continue to monitor glucose target of 140-180 BPH On medications of tamsulosin 0.4 mg p.o. b.i.d. Hepatic vein thrombosis Rotator cuff injury Multiple myeloma Acute DVT history Myoclonic jerks Not on any medications for above problems Code status: Full code Diet: Renal diet DVT prophylaxis: Heparin Lines: PIV Fritz Elliott ICU Resident PGY 2 Disposition: Transferred care to PCU. Date of Service: Apr 03, 2025 Billing Provider: VIRAJ QUIROGA MD,FRITZ, RES Apr 03, 2025 14:51
--- NOTE | 2025-04-03 16:19 | CARDIOLOGY REPORT ---
APPROVED REPORT EXAM: Comprehensive 2D, Doppler, and color-flow Echocardiogram. Patient Location: 2010 Blood Pressure: 139/82 mmHg Heart Rate: 84 bpm Indications STEMI PROBNP: 17996 Coronary Artery Disease STENTS x 2 (1 x 2016, 1 x 2021) CABG x 5 (12/15/22) Hypertension Diabetes CHF SENIOR CYTOGENETIC TECHNOLOGIST: Bean Baez MD Previous ECHO: 12/24/22, [facility], EF: 60-65; modLAE 2D Dimensions IVSd 1.5 (0.7-1.1cm) LVDd 4.5 cm PWd 1.3 (0.7-1.1cm) IVSs 1.7 (0.8-1.2cm) LVDs 3.9 (2.5-4.0cm) PWs 1.6 (0.8-1.2cm) LVOT Diameter 2.12 (1.8-2.4cm) LVEF(%) 31.8 (>50%) IVC 17.90 mmFS (%) 14.9 % SV 30.0 ml CO 2.5 L/min Aortic Valve AoV Peak Félix. 173.6 cm/s AoV VTI 29.5 cm AO Peak GR. 12.0 mmHg AO Mean GR. 8 mmHg LVOT VTI 20.98 cm LVOT Peak Félix. 106.6 cm/s AMANDA(VTI)/BSA 2.52 cm2/m2 AMANDA (VTI) 2.52 cm2 Mitral Valve MV E Velocity 115.8 cm/s MV Peak Gr. 5 mmHg MV DECEL TIME 288 ms MV A Velocity 142.9 cm/s MV PHT 68 ms E/A Ratio 0.8 MVA (PHT) 3.24 cm2 MV KTxo437.2 cm/s TDI Lateral E' P. V6.69 cm/s E/Lateral E' 17.3 Tricuspid Valve TR P. Velocity 67 cm/s RAP ESTIMATE 10 mmHg TR Peak Gr. 2 mmHg RVSP 12 mmHg LEFT VENTRICLE Normal LV size with severely decreased function. Moderate concentric hypertrophy. There is severe LV systolic dysfunction present. Overall estimated LVEF is 30-35%. RIGHT VENTRICLE Right ventricle appears mildly dilated with decreased function. ATRIA Left atrium is moderately dilated. AORTIC VALVE Trileaflet AV appears mildly sclerotic without stenosis. No insufficiency. MITRAL VALVE Mitral valve leaflets are mildly thickened with annular calcification. No stenosis. Trace regurgitati on. TRICUSPID VALVE The tricuspid valve is normal in structure with trivial regurgitation. PULMONIC VALVE The pulmonary valve is normal in structure with physiologic insufficiency. GREAT VESSELS The aortic root is normal in size. The ascending aorta is normal in size. The IVC is normal in size a nd collapses >50% with inspiration. PERICARDIUM Normal pericardium. No effusion. Other Information Study Quality: Fair due to body habitus Conclusion There is severe LV systolic dysfunction present. Overall estimated LVEF is 30-35%. Normal LV size with severely decreased function. Moderate concentric hypertrophy. Right ventricle appears mildly dilated with decreased function. Trileaflet AV appears mildly sclerotic without stenosis. No insufficiency. Mitral valve leaflets are mildly thickened with annular calcification. No stenosis. Trace regurgita tion. The tricuspid valve is normal in structure with trivial regurgitation. The pulmonary valve is normal in structure with physiologic insufficiency. Normal pericardium. No effusion.
--- NOTE | 2025-04-03 20:21 | PROGRESS NOTE ---
Daily Progress Note Providers to CC ~ Antibiotic Timeout Antibiotic Ordered?: No Subjective Patient was seen in surgical unit patient had dialysis today was feeling weak but denied any chest pain symptoms Objective Vital Signs Date Time Temp Pulse Resp B/P (MAP) Pulse Ox O2 Delivery O2 Flow Rate FiO2 04/03/25 17:31 97.6 88 181/95 (123) 04/03/25 17:11 14 04/03/25 16:45 98 04/03/25 16:15 Room Air 04/03/25 15:25 0 21 Result Diagram: 04/03/25 0255 04/03/25 0255 General-patient not in any acute distress, alert awake oriented, chronically ill-appearing HEENT-atraumatic normocephalic, neck supple without elevated JVD, no thyromegaly or carotid bruit. No lymphadenopathy bilaterally. Eyes-no icterus or pallor seen in eyes Chest-clear to auscultation bilaterally, breathing nonlabored no tachypnea, no wheezing, no crepitation, no crackles. Heart-S1-S2 normal, regular heart rate no murmur Abdomen bowel sounds positive on auscultation, soft nondistended nontender no guarding, no rigidity Skin no active skin rash Neurology-grossly intact, nonfocal alert awake oriented Extremity- no pedal edema able to move all 4 extremities Psychiatry - patient is not confused or agitated cooperated during physical examination Coagulation Studies Laboratory Tests Test 04/02/25 10:28 Prothrombin Time 10.9 SECONDS (9.0-12.0) INR International Normalized Ratio 1.1 INR Activated Partial Thromboplast Time 29 SECONDS (22-32) Coagulation Comments Problem\Assessment\Plan 64-year-old male patient with a correlates mass medical history and ESRD (Sunday, Sunday, and Sunday) came into the ER with hyperkalemia, he developed significant bradycardia and went into V-tach requiring cardioversion in the ER. His initial presentation hyperkalemia was at 8.0. He was treated successfully with dialysis yesterday and is now currently hemodynamically stable. Sustained V-tach with hypotension status post defibrillation Initially STEMI alert were called and Dr. Oliver thought that tall T-waves he has due to hyperkalemia secondary to ESRD ,noncompliant with dialysis Vitals are doing good after the defibrillation with 200 joules and VT subsided. Received 2 doses of calcium gluconate, 150 mg IV amiodarone, regular insulin 10 units and 50 mL of 50% dextrose Dr. Hull in ER defibrillated with 200 joules at 10:39 a.m. because of the low blood pressure it is, 89/53 . Patient is symptomatically and hemodynamically better after defibrillation. Acute hypoxemic respiratory failure secondary to volume overload YOSHI and chronic kidney disease, ESRD , Noncompliant with Hemodialysis Hyperkalemia Hypocalcemia Hyperphosphatemia Hypermagnesemia Serum creatinine is 12.77, BUN is elevated to 74, carbon dioxide is 31.7 Please previous serum creatinine is 7.4 on 03/18/2025. Troponins are negative but proBNP is super elevated and it could be secondary to ESRD. Dr. Mcfadden is on board. He is getting hemodialysis which could help his electrolyte to settle down to normal. On hyperkalemia management protocol & replacement protocol Left knee chronic effusion Lateral subluxation of the patella secondary to quadricep fracture postop total knee arthroplasty. Quadricep fracture postop total knee arthroplasty no acute change. Status post prior knee replacement Scheduled for knee replacement on 04/08/[address] Garcia Limiting his mobility and dialysis secondary to the above Normocytic normochromic anemia secondary to ESRD Anemia of chronic disease Serum hemoglobin is in 11.4 Monitor H& H and we will give Retacrit if hemoglobin is less than 10. Epogen with dialysis Adjustment disorder Mirtazapine 15 mg, zolpidem 10 mg GERD On pantoprazole 40 mg p.o. daily before breakfast Uncontrolled Hypertension CAD status post CABG On losartan 50 mg, Lasix 40 mg, carvedilol 25 mg p.o. b.i.d., nifedipine 30 mg On aspirin 81 mg and 40 mg of atorvastatin Chronic pain On morphine 30 mg p.o. p.r.n. Type 2 diabetes mellitus A1c is 6 on 11/26/2024 Glucose is in 150s Not on insulin protocol Will continue to monitor glucose target of 140-180 BPH On medications of tamsulosin 0.4 mg p.o. b.i.d. Hepatic vein thrombosis Rotator cuff injury Multiple myeloma Acute DVT history Myoclonic jerks Not on any medications for above problems Patient's current condition is guarded we will continue to follow patient in a.m. Sepsis Screening Skin Color: Normal Date of Service: Apr 03, 2025 Billing Provider: DORA HAYNES MD Common Visit Codes: [id number] INP/OBS CARE(HIGH) DORA HAYNES MD Apr 03, 2025 20:21
[2025-04-04 05:59] LABS: CREATININE 8.61 MG/DL (0.60-1.10); TOTAL CARBON DIOXIDE 30.5 MMOL/L (24-32); eCRCL 10 ML/MIN; eGFR 6 ML/MIN
[2025-04-04 06:00] LABS: MEAN PLATELET VOLUME 10.2 FL (7.4-10.4); RED CELL DISTRIBUTION WIDTH 16.9 % (11.5-14.5)
[2025-04-04 06:32] VITALS: BP_SYST 138; BP_SYST 149; BP_DIAS 67; PULSE 73; PULSE 74; RESP 16; TEMP 98.2; O2SAT 96
[2025-04-04 10:00] VITALS: BP 128/83; PULSE 70; RESP 16; TEMP 97.5; O2SAT 98
[2025-04-04 10:48] VITALS: RESP 18
[2025-04-04] MEDS ORDERED: CARV12.545 PO (11:08)
--- NOTE | 2025-04-04 16:00 | DISCHARGE SUMMARY ---
Discharge Summary Providers to CC ~ Discharge Summary Admission Diagnosis: SUSTAINED V TACH,HYPERKALEMIA,ESRD Hospital Course DATE OF ADMISSION: APRIL 02, 2025 DATE OF DISCHARGE: APRIL 04, 2025 CBC TESTING DONE ON APRIL 04, 2025 WBC 6.6 HEMOGLOBIN 10.7 HEMATOCRIT 32.6 PLATELET COUNT 232. SERUM CHEMISTRY DONE ON APRIL 04, 2025 SODIUM 137 POTASSIUM 5.3 CREATININE 8.61 GFR SIX MAGNESIUM THREE NORMAL LIVER ENZYMES, PROBNP 58527 ECHOCARDIOGRAM- Conclusion There is severe LV systolic dysfunction present. Overall estimated LVEF is 30-35%. Normal LV size with severely decreased function. Moderate concentric hypertrophy. Right ventricle appears mildly dilated with decreased function. Trileaflet AV appears mildly sclerotic without stenosis. No insufficiency. Mitral valve leaflets are mildly thickened with annular calcification. No stenosis. Trace regurgitation. The tricuspid valve is normal in structure with trivial regurgitation. The pulmonary valve is normal in structure with physiologic insufficiency. Normal pericardium. No effusion. Discharge Diagnosis\Comment: Sustained V-tach with hypotension status post defibrillation Acute hypoxemic respiratory failure secondary to volume overload YOSHI and chronic kidney disease, ESRD , Noncompliant with Hemodialysis Hyperkalemia Hypocalcemia Hyperphosphatemia Hypermagnesemia Left knee chronic effusion Lateral subluxation of the patella secondary to quadricep fracture postop total knee arthroplasty. Quadricep fracture postop total knee arthroplasty no acute change. Normocytic normochromic anemia secondary to ESRD Anemia of chronic disease Chronic pain syndrome Adjustment disorder Uncontrolled Hypertension CAD status post CABG Type 2 diabetes mellitus BPH Hepatic vein thrombosis Rotator cuff injury Multiple myeloma Acute DVT history Myoclonic jerks Operations\Procedures: defibrillation with 200 joules for VT Consultants: Dr Mcfadden Complications: None Condition on DC: Stable New Medications: Carvedilol (Carvedilol) 12.5 Mg Tablet 12.5 MG PO BID for 30 Days, #60 TAB Continued Medications: Aspirin (Aspirin EC) 81 Mg Tablet. 1 TAB PO DAILY Chlorpromazine HCl (Chlorpromazine HCl) 25 Mg Tablet 1 TAB PO DAILY Ergocalciferol (Vitamin D2) (Vitamin D2) 50 Mcg (2000 Unit) Capsule 1 CAP PO DAILY Famotidine (Famotidine) 40 Mg Tablet 1 TAB PO DAILY Furosemide (Furosemide) 40 Mg Tablet 1 TAB PO DAILY Hydrocodone Bit/Acetaminophen (Hydrocodon-Acetaminoph 7.5-325) 7.5 Mg-325 Mg Tablet 1 TAB PO Q4H PRN for breakthrough pain Losartan Potassium (Losartan Potassium) 50 Mg Tablet 1 TAB PO DAILY for 30 Days, #30 TAB 0 Refills Mirtazapine (Mirtazapine) 15 Mg Tablet 1 TAB PO HS Morphine Sulfate (MS CONTIN tablet) 30 Mg Tablet.sa 1 TAB PO BID Nifedipine (Nifedipine Er) 30 Mg Tablet.sa 1 TAB PO DAILY ONDANSETRON ODT 4mg tablet (Ondansetron Odt) 4 Mg Tab.rapdis 1 TAB PO every 4 to 6 hours PRN for nausea/vomiting Polyethylene Glycol 3350 ([id number]) 17 Gram/Dose Powder 17 GM PO DAILY Rosuvastatin Calcium (Rosuvastatin Calcium) 20 Mg Tablet 1 TAB PO HS Tamsulosin Hcl* (Flomax*) 0.4 Mg Cap.sr.24h 0.4 MG PO BID Zinc Sulfate (Zinc-220) 50 Mg Zinc (220 Mg) Capsule 1 CAP PO DAILY Zolpidem Tartrate (Ambien) 10 Mg Tablet 1 TAB PO HS Discontinued Medications: Carvedilol (Carvedilol) 25 Mg Tablet 1 TAB PO BID Discharge Summary: 64-year-old male patient with a correlates mass medical history and ESRD (Sunday, Sunday, and Sunday) came into the ER with hyperkalemia, he developed significant bradycardia and went into V-tach requiring cardioversion in the ER. His initial presentation hyperkalemia was at 8.0. He was treated successfully with dialysis yesterday and is now currently hemodynamically stable. Sustained V-tach with hypotension status post defibrillation Initially STEMI alert were called and Dr. Oliver thought that tall T-waves he has due to hyperkalemia secondary to ESRD ,noncompliant with dialysis Vitals are doing good after the defibrillation with 200 joules and VT subsided. Received 2 doses of calcium gluconate, 150 mg IV amiodarone, regular insulin 10 units and 50 mL of 50% dextrose Dr. Hull in ER defibrillated with 200 joules at 10:39 a.m. because of the low blood pressure it is, 89/53 . Patient is symptomatically and hemodynamically better after defibrillation. Acute hypoxemic respiratory failure secondary to volume overload YOSHI and chronic kidney disease, ESRD , Noncompliant with Hemodialysis Hyperkalemia Hypocalcemia Hyperphosphatemia Hypermagnesemia Serum creatinine is 12.77, BUN is elevated to 74, carbon dioxide is 31.7 Please previous serum creatinine is 7.4 on 03/18/2025. Troponins are negative but proBNP is super elevated and it could be secondary to ESRD. Dr. Mcfadden is on board. He is getting hemodialysis which could help his electrolyte to settle down to normal. On hyperkalemia management protocol & replacement protocol Left knee chronic effusion Lateral subluxation of the patella secondary to quadricep fracture postop total knee arthroplasty. Quadricep fracture postop total knee arthroplasty no acute change. Status post prior knee replacement Scheduled for knee replacement on 04/08/[address] Garcia Limiting his mobility and dialysis secondary to the above Normocytic normochromic anemia secondary to ESRD Anemia of chronic disease Serum hemoglobin is in 11.4 Monitor H& H and we will give Retacrit if hemoglobin is less than 10. Epogen with dialysis Adjustment disorder Mirtazapine 15 mg, zolpidem 10 mg GERD On pantoprazole 40 mg p.o. daily before breakfast Uncontrolled Hypertension CAD status post CABG On losartan 50 mg, Lasix 40 mg, carvedilol 25 mg p.o. b.i.d., nifedipine 30 mg On aspirin 81 mg and 40 mg of atorvastatin Chronic pain On morphine 30 mg p.o. p.r.n. Type 2 diabetes mellitus A1c is 6 on 11/26/2024 Glucose is in 150s Not on insulin protocol Will continue to monitor glucose target of 140-180 BPH On medications of tamsulosin 0.4 mg p.o. b.i.d. Hepatic vein thrombosis Rotator cuff injury Multiple myeloma Acute DVT history Myoclonic jerks Not on any medications for above problems Patient's clinical condition improved and he was feeling much better. His con cern is left knee pain for which he is going to follow with skin care specialist after hospital discharge. Patient is seen and examined on the day of discharge discharge instructions provided to the patient. Patient is discharged home in stable condition. All questions and concerns answered to the best of my professional medical knowledge.please follow up with PCP, salesforce specialist, Dr. Mcfadden, skin care specialist in 1-2 weeks. Please provide fall precaution documents, activity as tolerated. Patient is strongly advised to be compliant with his dialysis and risks explained. Take all his medications as recommended by PCP and other specialist. Please read the side effects of all your medication and discussed with the provider who is prescribing those medications. Patient is taking multiple medications which can increase patient's risk for dizziness falls and fractures. General-patient not in any acute distress, alert awake oriented, chronically ill-appearing HEENT-atraumatic normocephalic, neck supple without elevated JVD, no thyromegaly or carotid bruit. No lymphadenopathy bilaterally. Eyes-no icterus or pallor seen in eyes Chest-clear to auscultation bilaterally, breathing nonlabored no tachypnea, no wheezing, no crepitation, no crackles. Heart-S1-S2 normal, regular heart rate no murmur, CABG scar present over midline. Abdomen bowel sounds positive on auscultation, soft nondistended nontender no guarding, no rigidity Skin - old surgical scar present over left knee Neurology-grossly intact, nonfocal alert awake oriented Extremity- no pedal edema able to move all 4 extremities Psychiatry - patient is not confused or agitated cooperated during physical examination *Problems/Diagnosis: (1) End stage renal disease Status: Acute (2) Hypertension (3) Anemia Status: Acute Total Time Spent on D/C: > 30 Minutes Date of Service: Apr 04, 2025 Billing Provider: DORA HAYNES MD Common Visit Codes: [id number] DISCH DAY >30min DORA HAYNES MD Apr 04, 2025 15:54
== END 2025-04-04 12:38 | disposition home or self-care (01) | DRG 640 ==
LOC: ER 10:17 → ED HOLD 12:08 → CICU 2S 13:05 → SUR 3N 04-03 17:23
PROVIDERS: ADMIT Internal Medicine Critical Care Medicine; ATTEND Internal Medicine Critical Care Medicine
PROC: 5A2204Z Restoration of Cardiac Rhythm, Single (ICD-10-PCS; principal; 2025-04-02)
PROC: 5A1D70Z Performance of Urinary Filtration, Intermittent, Less than 6 Hours Per Day (ICD-10-PCS; 2025-04-02)
PROC: 5A1D70Z Performance of Urinary Filtration, Intermittent, Less than 6 Hours Per Day (ICD-10-PCS; 2025-04-03)
DX: E87.70 Fluid overload, unspecified (principal); I82.0 Budd-Chiari syndrome; J96.01 Acute respiratory failure with hypoxia; N18.6 End stage renal disease; I47.20 Ventricular tachycardia, unspecified; I12.0 Hypertensive chronic kidney disease with stage 5 chronic kidney disease or end stage renal disease; C90.00 Multiple myeloma not having achieved remission; N17.9 Acute kidney failure, unspecified; E83.51 Hypocalcemia; I25.10 Atherosclerotic heart disease of native coronary artery without angina pectoris; K21.9 Gastro-esophageal reflux disease without esophagitis; E83.41 Hypermagnesemia; E83.39 Other disorders of phosphorus metabolism; E87.5 Hyperkalemia; S83.012A Lateral subluxation of left patella, initial encounter; X58.XXXA Exposure to other specified factors, initial encounter; E11.22 Type 2 diabetes mellitus with diabetic chronic kidney disease; N40.0 Benign prostatic hyperplasia without lower urinary tract symptoms; D63.1 Anemia in chronic kidney disease; F43.20 Adjustment disorder, unspecified; G25.3 Myoclonus; Z79.82 Long term (current) use of aspirin; Z79.899 Other long term (current) drug therapy; Z95.1 Presence of aortocoronary bypass graft; Z91.158 Patient's noncompliance with renal dialysis for other reason; Y93.89 Activity, other specified; Y92.89 Other specified places as the place of occurrence of the external cause; Y99.8 Other external cause status
CPT/HCPCS: 36415; 36600; 71045; 80048; 80053; 82803; 82948; 83735; 83880; 84100; 84484; 85018; 85025; 85610; 85730; 87081; 93005; 93306; 94760; 99285; E1594; G0257; G0378; J0282; J0612; J1644; J1815; J2003; J2270; J3490; Q9967

== ENCOUNTER 2025-05-25 15:36 | Inpatient (IN) | payer OTHER, MEDICARE, MEDICAID ==
[~2025-05-25] VITALS: Ht 185.4 cm; Wt 88.2 kg
[2025-05-25 10:50] VITALS: BP 168/83; PULSE 82; RESP 18; TEMP 98; O2SAT 98
[~2025-05-25 15:36] MED LIST changes: +CARV12.545 PO; -CARV25TA3 PO; +HYDR-3968 PO; -PANT40TA54 PO; -amiodarone 50MG/ML inj IV ONE
--- NOTE | 2025-05-25 15:51 | Physician Documentation ---
History of Present Illness General Chief Complaint: Weakness Stated Complaint: ARM PAIN Time Seen by MD: 15:50 OK to notify your PCP?: No Primary Medical Doctor: Turner Garcia MD Source: patient, RN notes reviewed Mode of Arrival: EMS Exam Limitations: no limitations History of Present Illness Initial Comments 64 year old male, with a history of chronic kidney disease on dialysis, sent to the ED via EMS from the hemodialysis center due to concerns of right arm pain for the last two days. Pain is localized to the inner elbow and worsens with certain movements. Also reports generalized weakness over this time. He denies any fever. Patient reports he was able to complete a full dialysis today. Medication Reconciliation Allergies: Coded Allergies: No Known Drug Allergies (Verified Allergy, Unknown, 05/25/25) lactose (Unverified Adverse Reaction, Unknown, 05/25/25) latose intolerant per pt Scheduled Aspirin (Aspirin EC), 1 TAB PO DAILY, (Reported) Carvedilol (Carvedilol), 12.5 MG PO BID Chlorpromazine HCl (Chlorpromazine HCl), 1 TAB PO DAILY, (Reported) Ergocalciferol (Vitamin D2) (Vitamin D2), 1 CAP PO DAILY, (Reported) Famotidine (Famotidine), 1 TAB PO DAILY, (Reported) Furosemide (Furosemide), 1 TAB PO DAILY, (Reported) Losartan Potassium (Losartan Potassium), 1 TAB PO DAILY, (Reported) Mirtazapine (Mirtazapine), 1 TAB PO HS, (Reported) Morphine Sulfate (MS CONTIN tablet), 1 TAB PO BID, (Reported) Nifedipine (Nifedipine Er), 1 TAB PO DAILY, (Reported) Polyethylene Glycol 3350 ([id number]), 17 GM PO DAILY, (Reported) Rosuvastatin Calcium (Rosuvastatin Calcium), 1 TAB PO HS, (Reported) Tamsulosin Hcl* (Flomax*), 0.4 MG PO BID, (Reported) Zinc Sulfate (Zinc-220), 1 CAP PO DAILY, (Reported) Zolpidem Tartrate (Ambien), 1 TAB PO HS, (Reported) Scheduled PRN Hydrocodone Bit/Acetaminophen (Hydrocodon-Acetaminoph 7.5-325), 1 TAB PO Q4H PRN for breakthrough pain, (Reported) ONDANSETRON ODT 4mg tablet (Ondansetron Odt), 1 TAB PO every 4 to 6 hours PRN for nausea/vomiting, (Reported) Past Medical History Past Medical History: Peripheral Neuropathy, Coronary Artery Disease, Congestive Heart Failure, Hypertension, Myocardial Infarction, Pneumonia, Constipation, GERD, Chronic Kidney Disease Past Surgical History: abdominal surgery, angioplasty, appendectomy Other Past Surgical History: splenectomy Smoking: Non-Smoker Alcohol Use: None Drug Use: none Lives with: Alone Lives In: Home Occupation: employed Review of Systems All Other Systems at this time: Reviewed and Negative ROS As stated above in the HPI, otherwise all systems are reviewed and negative. Physical Exam Physical Exam Vital Signs: RN Vital Signs have been reviewed: Yes, Temperature: 96.7, Source: Axillary, Heart Rate: 78, Respiratory Rate: 24, BP: 159/82, Pulse Oximetry: 100, Weight: 88.180 Oxygen Flow Rate: 0 Pulse Oximetry Reflects: adequate oxygenation Physical Exam VITALS: Reviewed and as above. GENERAL: Alert, no apparent distress. HEENT: Normocephalic, atraumatic, PERRL, EOMI, dry mucosa RESPIRATORY: Lungs clear, normal breath sounds, no respiratory distress. CHEST: No accessory muscle use, no retractions CV: Regular rate, rhythm, no edema, no murmur, No: JVD GI: Soft, non-tender, bowels sounds present, no rebound, guarding, or rigidity MUSCULOSKELETAL No deformities, no edema SKIN: Warm and dry, no rash NEURO: Oriented x4 but somnolent. 4/5 strength to bilateral upper extremities with intermittent mild clonic jerking of the upper extremities. Progress Progress Note 1187: Hospitalist paged. Results/Orders Reviewed/noted all lab results: Yes Results/Orders Vital Signs 05/25/25 05/25/25 05/25/25 15:41 15:50 17:09 Temp 96.7 Pulse 78 77 Resp 24 19 B/P (MAP) 159/82 176/97 (123) Pulse Ox 100 97 O2 Flow Rate 0 0 Laboratory Tests Test 05/25/25 16:12 05/25/25 16:26 White Blood Count 7.8 Red Blood Count 3.81 L Hemoglobin 10.8 L Hematocrit 32.6 L Mean Corpuscular Volume 85.5 Mean Corpuscular Hemoglobin 28.2 Mean Corpuscular Hemoglobin Concent 33.0 Red Cell Distribution Width 17.8 H Platelet Count 256 Mean Platelet Volume 9.3 Neutrophils (%) (Auto) 74.8 Lymphocytes (%) (Auto) 7.7 L Monocytes (%) (Auto) 9.8 Eosinophils (%) (Auto) 6.7 H Basophils (%) (Auto) 1.0 Neutrophils # (Auto) 5.8 Lymphocytes # (Auto) 0.6 L Monocytes # (Auto) 0.8 Eosinophils # (Auto) 0.5 Basophils # (Auto) 0.1 CBC Comment Sodium Level 136 Potassium Level 3.9 Chloride Level 93 L Carbon Dioxide Level 33.7 H Anion Gap 9 Blood Urea Nitrogen 41 H Creatinine 6.63 H Estimated GFR/1.73 m2 8 BUN/Creatinine Ratio 6.2 L Glucose Level 103 Lactic Acid Level 0.8 Calcium Level 8.7 Magnesium Level 2.9 H Troponin I High Sensitivity 19 Albumin 3.1 L Procalcitonin 0.56 H Chemistry Comments EKG/XRAY/CT/US/VASC/MRI EKG : Additional Comment 1603: EKG interpreted by myself to show NSR at a rate of 76bpm. Right axis deviation, nonspecific ST abnormalities. Chest X-Ray : Additional Comments CHEST RADIOGRAPH REASON FOR EXAM: SEPSIS COMPARISON: DI CHEST,SINGLE VIEW on DOS: 04/02/25, DI CHEST,SINGLE VIEW on DOS: 03/15/25, DI CHEST,SINGLE VIEW on DOS: 05/19/24, CHEST,TWO VIEWS on DOS: 03/02/23, CHEST,SINGLE VIEW on DOS: 12/27/22 TECHNIQUE: One view of the chest is provided FINDINGS: The cardiomediastinal silhouette is stably enlarged. There are surgical changes in the mediastinum. There is pulmonary venous congestion. There is bilateral pulmonary edema versus diffuse pneumonitis. There is small b ilateral pleural effusion, [id number]-left. IMPRESSION: Cardiomegaly. Pulmonary edema versus diffuse pneumonitis. Small bilateral pleural effusions, [id number]-left. Reviewed by myself Medical Decision Making Additional info obtained from: old records (last seen in March for STEMI) Departure Time of Disposition: 17:47 Disposition: ADMITTED INPATIENT Admitted to Inpatient Unit: yes, to hospitalist Impression: Primary Impression: Chronic renal failure on dialysis Additional Impression: Right arm pain Condition: Fair Referrals: NO PRIMARY CARE PROVIDER (PCP) Signature Scribe Signature: Scribed for OhlCricket de la cruz MD by Mitch Matias . 05/25/25 16:22 CRICKET HEBERT MD May 25, 2025 15:51 MITCH BOND May 25, 2025 16:27
--- NOTE | 2025-05-25 16:06 | ELECTROCARDIOGRAPH REPORT ---
[facility] Test Date: 2025-05-25 Test Time: 16:03:27 Pat Name: RHONDA MALAVE Department: [facility] Patient ID: [facility]-[id number] Room: ED 11 Gender: M Cooperative Manager: : 1960 Requested By: CRICKET HEBERT Order Number: [id number] Reading MD: Dr. Ankit Hamilton Measurements Intervals [place] Rate: 76 P: 74 [place]: 225 QRS: 135 QRSD: 112 T: 115 QT: 497 QTc: 560 Interpretive Statements Sinus rhythm Prolonged [place] interval Consider left atrial enlargement Consider anterior infarct Abnrm T, consider ischemia, anterolateral lds Prolonged QT interval Baseline wander in lead(s) V4,V5 Electronically Signed On 05-25-2025 19:35:[address] Ankit Hamilton Please click the below link to view image of tracing.
--- NOTE | 2025-05-25 16:21 | RADIOLOGY REPORT ---
CHEST RADIOGRAPH REASON FOR EXAM: SEPSIS COMPARISON: DI CHEST,SINGLE VIEW on DOS: 04/02/25, DI CHEST,SINGLE VIEW on DOS: 03/15/25, DI CHEST,SING LE VIEW on DOS: 05/19/24, CHEST,TWO VIEWS on DOS: 03/02/23, CHEST,SINGLE VIEW on DOS: 12/27/22 TECHNIQUE: One view of the chest is provided FINDINGS: The cardiomediastinal silhouette is stably enlarged. There are surgical changes in the med iastinum. There is pulmonary venous congestion. There is bilateral pulmonary edema versus diffuse p neumonitis. There is small bilateral pleural effusion, [id number]-left. IMPRESSION: Cardiomegaly. Pulmonary edema versus diffuse pneumonitis. Small bilateral pleural effusions, right-gr [id number].
[2025-05-25 16:41] LABS: MEAN PLATELET VOLUME 9.3 FL (7.4-10.4); RED CELL DISTRIBUTION WIDTH 17.8 % (11.5-14.5)
[2025-05-25 16:47] LABS: CREATININE 6.63 MG/DL (0.60-1.10); TOTAL CARBON DIOXIDE 33.7 MMOL/L (24-32); eCRCL 13 ML/MIN; eGFR 8 ML/MIN
[2025-05-25] MEDS ORDERED: potassium Cl 20 mEq SR tablet PO PRN ×2 (18:35)
[2025-05-25] MEDS ORDERED: HYDROmorphone inj. 0.5 MG/0.5 ML DISP.SYRIN IV PRN (18:35)
[2025-05-25] MEDS ORDERED: magnesium sulf-water 4G/100mL 100 ML IV PRN (18:35)
[2025-05-25] MEDS ORDERED: potassium Cl 40MEQ/1/2NS 520ml 520 ML IV PRN (18:35)
[2025-05-25] MEDS ORDERED: bisacodyl 10mg suppository rectal RC PRN (18:35)
[2025-05-25] MEDS ORDERED: magnesium sulf-water 2g/50mL 50 ML IV PRN (18:35)
[2025-05-25] MEDS ORDERED: ondansetron/PF 4mg/2ml inj IV PRN (18:35)
--- NOTE | 2025-05-25 18:48 | HISTORY AND PHYSICAL ---
History & Physical Providers to CC ~ History of Present Illness Reason for Admit\Complaint: Right arm pain\generalized weakness with a myoclonic activity History of Present Illness This is a 64-year-old male who was sent over from dialysis by turret lathe operator Dr. Mcfadden for further evaluation. The patient complains of generalized weakness x1 day as well as right upper extremity pain at the elbow x1 day and complains of random twitching which he has done intermittently for the past couple of months. The patient has tested for COVID he was negative and an venous ultrasound of the right upper extremities negative for DVT on the preliminary report. I spoke with Dr. Mcfadden who was in agreement with obtaining the ultrasound and ordering physical therapy had no other further recommendations. The patient is hypertensive otherwise other are no significant findings other than end-stage renal disease with a creatinine of 6.63 Allergies: Coded Allergies: No Known Drug Allergies (Verified Allergy, Unknown, 05/25/25) lactose (Unverified Adverse Reaction, Unknown, 05/25/25) latose intolerant per pt Home Medications Home Medications Active Carvedilol 12.5 Mg Tablet 12.5 Mg PO BID 30 Days Reported Hydrocodon-Acetaminoph 7.5-325 (Hydrocodone Bit/Acetaminophen) 7.5 Mg-325 Mg Tablet 1 Tab PO Q4H PRN Aspirin EC (Aspirin) 81 Mg Tablet.dr 1 Tab PO DAILY Nifedipine Er (Nifedipine) 30 Mg Tablet.sa 1 Tab PO DAILY [id number] (Polyethylene Glycol 3350) 17 Gram/Dose Powder 17 Gm PO DAILY Rosuvastatin Calcium 20 Mg Tablet 1 Tab PO HS Furosemide 40 Mg Tablet 1 Tab PO DAILY Losartan Potassium 50 Mg Tablet 1 Tab PO DAILY 30 Days Chlorpromazine HCl 25 Mg Tablet 1 Tab PO DAILY Vitamin D2 (Ergocalciferol (Vitamin D2)) 50 Mcg (2000 Unit) Capsule 1 Cap PO DAILY Zinc-220 (Zinc Sulfate) 50 Mg Zinc (220 Mg) Capsule 1 Cap PO DAILY Famotidine 40 Mg Tablet 1 Tab PO DAILY MS CONTIN tablet (Morphine Sulfate) 30 Mg Tablet.sa 1 Tab PO BID Flomax* (Tamsulosin HCl) 0.4 Mg Cap.sr.24h 0.4 Mg PO BID Ondansetron Odt (Ondansetron HCl) 4 Mg Tab.rapdis 1 Tab PO EVERY 4 TO 6 HOURS PRN Mirtazapine 15 Mg Tablet 1 Tab PO HS Ambien (Zolpidem Tartrate) 10 Mg Tablet 1 Tab PO HS Past Medical History Past Medical History Adjustment disorder GERD Hypertension Chronic pain BPH Malignant hypertension Esrd with electrolyte abnormalities Hepatic vein thrombosis Rotator cuff injury CAD Multiple myeloma Anemia in chronic kidney disease Acute DVT history Lateral subluxation of the patella 2/2 quadricep fracture postop total knee arthroplasty and chronic knee effusion Quadricep fracture postop total knee arthroplasty no acute change. Myoclonic jerks secondary to uremia Normocytic microchromic anemia Past Surgical History Surgical History Comment abdominal surgery, angioplasty, appendectomy splenectomy Status post total knee arthroplasty Status post CABG 5 vessel Family History Family History: (Cancer) Malignant carcinoid tumor FATHER FH: hypertension FATHER Past Social History Social History Comment Patient denes history of smoking/ drinking alcohol nor any illicit drug use Full Code Status ROS ROS Except for positives in the HPI the rest of the 14 point review systems is negative Exam Vitals: Vital Signs Date Time Temp Pulse Resp B/P (MAP) Pulse Ox O2 Delivery O2 Flow Rate FiO2 05/25/25 17:09 77 19 176/97 (123) 97 0 05/25/25 15:41 96.7 General: Gen. No acute distress alert and oriented 4 Neuro intermittent random twitching of the upper extremities and lower extremities Lungs clear to ascultation bilaterally, no wheezes rales or rhonchi appreciated Heart normal sinus rhythm no murmurs rubs or clicks noted Abdomen soft nontender bowel sounds are normoactive Lower extremities no clubbing cyanosis, nor edema appreciated bilaterally Right upper extremity moderate to significant tenderness to palpation with mild edema of the medial elbow Diagnostic Data Last Recorded Lab Results: 05/25/25 1626 05/25/25 1626 Advance Care Planning Advanced Care plannin - 30 Minutes Problems: (1) ESRD (end stage renal disease) Additional Plan # right elbow edema and moderate to significant tenderness to palpation medially Venous ultrasound is negative for DVT on the preliminary report Possibly secondary to with strain # myoclonic activity chronic # generalized weakness Physical therapy # end-stage renal disease on dialysis # status post dialysis treatment today I spoke with Dr. Mcfadden turret lathe operator who will consult on the patient tomorrow Creatinine is 6.63 currently Continue monitor daily metabolic panels # hypertension Blood pressure is uncontrolled currently Awaiting med reconciliation PRN hydralazine IV # DVT prophylaxis SQ heparin I spent a total of 17 minutes on reviewing various resuscitative measures/ ACP with the patient at the time of admission. The patient has decided on full code status Date of Service: May 25, 2025 Billing Provider: TIFF PATINO DO Common Visit Codes: [id number] INP/OBS CARE (HIGH) Secondary Visit Codes: [id number] CARE PLAN 30 MINUTES TIFF PATINO DO May 25, 2025 18:48
[2025-05-25 19:05] LABS: PHOSPHORUS 5.3 MG/DL (2.3-4.5)
--- NOTE | 2025-05-25 19:14 | VASCULAR REPORT ---
CLINICAL HISTORY: Right arm pain TECHNIQUE: Color and duplex doppler imaging of the right upper extremity veins and right subclavian v ein was performed. Vessel compression if possible was also performed. WID: COMPARISON: None FINDINGS: The right internal jugular, axillary, basilic, cephalic, brachial radial, ulnar veins are patent and demonstrate normal compressibility and flow. The right subclavian is patent. IMPRESSION: 1. NO SONOGRAPHIC EVIDENCE FOR DEEP VENOUS THROMBOSIS IN THE RIGHT UPPER EXTREMITY VEINS.
[2025-05-25] MEDS: K and/or MAG REPLACEMENT MC SCH (20:00)
[2025-05-25] MEDS ORDERED: TAMSULOSIN (20:12)
[2025-05-25] MEDS ORDERED: CARV12.53 PO (20:14)
[2025-05-25] MEDS ORDERED: MORP30TA PO (20:14)
[2025-05-25] MEDS ORDERED: ZOLP-679 (20:14)
[2025-05-25] MEDS ORDERED: NALO4SPR22 BOTHNARES (20:14)
[2025-05-25] MEDS: heparin, porcine 5000 units/ml vial SQ SCH (21:21)
[2025-05-25] MEDS: docusate sod 100mg capsule PO SCH (21:22)
[2025-05-25] MEDS: hydrALAZINE 20mg/ml inj. IV PRN (22:36)
[2025-05-25 22:50] VITALS: BP 168/83; PULSE 82; RESP 18; TEMP 98; O2SAT 98
[2025-05-26 05:33] LABS: MEAN PLATELET VOLUME 9.3 FL (7.4-10.4); RED CELL DISTRIBUTION WIDTH 17.6 % (11.5-14.5)
[2025-05-26 06:00] VITALS: BP 177/91; PULSE 83; RESP 16; TEMP 97.9; O2SAT 97
[2025-05-26 06:05] LABS: CREATININE 8.35 MG/DL (0.60-1.10); PHOSPHORUS 7.0 MG/DL (2.3-4.5); TOTAL CARBON DIOXIDE 31.5 MMOL/L (24-32); eCRCL 10 ML/MIN; eGFR 6 ML/MIN
[2025-05-26] MEDS: NIFEdipine XL 30mg tablet PO SCH (08:20)
[2025-05-26 10:00] VITALS: BP 157/68; PULSE 79; RESP 14; TEMP 98.2; O2SAT 94
--- NOTE | 2025-05-26 11:49 | PROGRESS NOTE ---
Daily Progress Note Providers to CC ~ Antibiotic Timeout Antibiotic Ordered?: No Subjective No acute events overnight. Patient examined at bedside. No new complaints, not in acute distress. Patient denies chest pain, sob, palpitations, abdominal pain, n/v/d. Objective Vital Signs Date Time Temp Pulse Resp B/P (MAP) Pulse Ox O2 Delivery O2 Flow Rate FiO2 05/26/25 10:00 98.2 79 14 157/68 (97) 94 Room Air 05/25/25 22:34 0 Result Diagram: 05/26/25 0510 05/26/25 0510 Physical Exam General: Generalized weakness, A&Ox 3, NAD HEENT: Normocephalic, PERRLA Neck: Supple, trachea midline, no JVD Chest: Clear to auscultation bilaterally Cardiovascular: RRR, S1&S2 GI: Soft and nontender Extremities: Tenderness of medial right elbow with palpation PRE BILLING SPECIALIST: CN II-XII intact, no focal deficits Musculoskeletal: No paraspinal muscle tenderness, no muscle spasm Skin: Warm and intact, no bruises no erythema/edema Problem\Assessment\Plan Problems/Diagnosis: (1) ESRD (end stage renal disease) # ESRD on HD # Generalized weakness -HD on 05/25 -05/26: continue scheduled HD -RUE pain- venous US negative likely muscle strain -PT # Hypertension -05/26: nifedipine, prn hydralazine DVT prophylaxis: heparin Date of Service: May 26, 2025 Billing Provider: KRISTIE CULLEN Common Visit Codes: [id number] INP/OBS CARE(HIGH) KRISTIE CULLEN May 26, 2025 11:49
--- NOTE | 2025-05-26 15:06 | CONSULTATION REPORT ---
Consult Providers to CC ~ History of Present Illness Reason for Admit\Complaint: Tremors History of Present Illness ESRD-HD last dialysis yesterday, he was unable to ambulate after his treatment, he typically has very large volume IDWG, he had nearly 5 liters UF removed yesterday,he also reports very severe right elbow pain, neck pain, and difficulty with his memory since he fell and hit his head a few days ago, he denies GASCA, cnahges in vision, difficulty with speech or swallowing, he has difficulty with balance as well, no other falls reported Allergies: Coded Allergies: No Known Drug Allergies (Verified Allergy, Unknown, 05/25/25) lactose (Unverified Adverse Reaction, Unknown, 05/25/25) latose intolerant per pt Home Medications Home Medications Active Reported Morphine Sulfate 30 Mg Tablet 1 Tab PO BID PRN Naloxone HCl 4 Mg/Actuation [place] 1 Sprays BOTHNARES PRN Carvedilol 12.5 Mg Tablet 1 Tab PO BID Hydrocodon-Acetaminoph 7.5-325 (Hydrocodone Bit/Acetaminophen) 7.5 Mg-325 Mg Tablet 1 Tab PO Q4H PRN Aspirin EC (Aspirin) 81 Mg Tablet.dr 1 Tab PO DAILY Nifedipine Er (Nifedipine) 30 Mg Tablet.sa 1 Tab PO DAILY [id number] (Polyethylene Glycol 3350) 17 Gram/Dose Powder 17 Gm PO DAILY Rosuvastatin Calcium 20 Mg Tablet 1 Tab PO HS Losartan Potassium 50 Mg Tablet 1 Tab PO DAILY 30 Days Chlorpromazine HCl 25 Mg Tablet 1 Tab PO DAILY Vitamin D2 (Ergocalciferol (Vitamin D2)) 50 Mcg (2000 Unit) Capsule 1 Cap PO DAILY Zinc-220 (Zinc Sulfate) 50 Mg Zinc (220 Mg) Capsule 1 Cap PO DAILY Famotidine 40 Mg Tablet 1 Tab PO DAILY Flomax* (Tamsulosin HCl) 0.4 Mg Cap.sr.24h 0.4 Mg PO BID Ondansetron Odt (Ondansetron HCl) 4 Mg Tab.rapdis 1 Tab PO EVERY 4 TO 6 HOURS PRN Mirtazapine 15 Mg Tablet 1 Tab PO HS Ambien (Zolpidem Tartrate) 10 Mg Tablet 1 Tab PO HS Past Medical History Past Medical History Reviewed Past Surgical History Surgical History Comment Reviewed Family History Family History: (Cancer) Malignant carcinoid tumor FATHER FH: hypertension FATHER Past Social History Social History Comment Reviewed ROS ROS All other systems non-contributory Exam Vitals: Vital Signs Date Time Temp Pulse Resp B/P (MAP) Pulse Ox O2 Delivery O2 Flow Rate FiO2 05/26/25 10:00 98.2 79 14 157/68 (97) 94 Room Air 05/25/25 22:34 0 RRR w/o murmur CTAB, no wheezes +BS, NT No edema Diagnostic Data Last Recorded Lab Results: 05/26/25 0510 05/26/25 0510 Problems: (1) Ground-level fall Assessment & Plan: Hit head, when he fell against a cabinet 2 days ago, now neck, head and right elbow pain - CT head cervical spine and elbow (2) Hyperphosphatemia Assessment & Plan: Continue home binders (3) ESRD (end stage renal disease) on dialysis Assessment & Plan: Plan on dialysis tomorrow (4) Right arm pain Status: Acute Assessment & Plan: CT scan right elbow WALL,MAREK Hanson III DO May 26, 2025 15:06
--- NOTE | 2025-05-26 15:29 | RADIOLOGY REPORT ---
CLINICAL HISTORY: fall with head injury TECHNIQUE: Helical scanning was performed of the head from the skull base to the vertex. Multiplanar reconstructions were performed. This exam was performed according to our departmental dose optimizat ion program. Up-to-date CT equipment and radiation dose reduction techniques are utilized as appropri ate. CTDI 62.1 DLP 1353.6 COMPARISON: None FINDINGS: There is no evidence for acute intracranial hemorrhage, acute ischemic changes, mass, mass effect, or extra-axial fluid collection. There is no hydrocephalus or midline shift. There is no effacement of the cerebral sulci and basal subarachnoid cisterns. The odell-white matter differentiation is well kassie ntained. The imaged paranasal sinuses are clear. There has been bilateral cataract extraction. IMPRESSION: NO ACUTE INTRACRANIAL ABNORMALITY SEEN.
--- NOTE | 2025-05-26 15:29 | RADIOLOGY REPORT ---
Indication: fall with head injury Technique: CT axial images of the cervical spine are obtained without contrast. Coronal and sagittal reformats were obtained. Radiation Dose Information: CTDI volume is 25 mGy. Dose-length product is 590 mGy*cm Comparison: None FINDINGS: The cervical vertebral body heights are maintained. Straightening of normal cervical spine curvature . There is advanced multilevel disc space narrowing. No prevertebral edema. Facet articulations are i n tact. . The atlantooccipital, atlantoaxial articulations are intact. Small right, tiny left pleural effusions. Right paratracheal lymph node measuring 21 mm. Left paratracheal lymph node measuring 25 mm. Left garrett praclavicular lymph nodes measuring up to 18 mm. Right supraclavicular lymph nodes measuring up to 15 mm. IMPRESSION: Advanced cervical degenerative disc disease Extensive mediastinal, supraclavicular lymphadenopathy. Correlate for infectious / inflammatory, mal ignant etiologies. Small right and tiny left pleural effusions.
[2025-05-26 18:00] VITALS: BP 197/100; PULSE 81; RESP 18; TEMP 97.9; O2SAT 96
[2025-05-26] MEDS ORDERED: NALOXONE 4 MG NS SCH (18:10)
--- NOTE | 2025-05-26 19:18 | RADIOLOGY REPORT ---
INDICATION: fall with head injury COMPARISON: CT CT UPPER EXTREMITIES on DOS: 05/19/24 TECHNIQUE: CT of the right upper extremity was performed without contrast. Volume transverse images w ere obtained and reconstructed in multiple planes using bone and soft tissue algorithms. All CT scans at this medical facility are performed using dose modulation techniques as appropriate to a performe d exam including the following: Automated exposure control was utilized; adjustment of the MA and/or KV according to patient size; and use of iterative reconstruction technique. CONTRAST: None Radiation Dose Information: CTDI volume is 3.69+ 0.14 mGy. Dose-length product is 113.06 mGy*cm FINDINGS: Normal mineralization and alignment. The joint spaces are preserved. There is no acute fracture. Enth esophyte in the olecranon process. Small right elbow joint effusion. Muscle bundles about the visuali zed right upper extremity are intact. IMPRESSION: 1. No acute fracture or traumatic malalignment. 2. Small right elbow joint effusion.
[2025-05-26 20:00] VITALS: RESP 18; O2SAT 98
[2025-05-26] MEDS: sevelamer carbonate 800mg tablet PO ONE (20:22)
[2025-05-26] MEDS: CefTRIAXone/D5W-Rocephin 1gm 50 ML IV ONE (20:23)
[2025-05-26 22:00] VITALS: BP 139/71; PULSE 78; RESP 16; TEMP 97.9; O2SAT 93
[2025-05-26] MEDS: HYDROcodone/acetaminophen 10/325mg tab PO PRN (22:55)
[2025-05-27] VITALS (10 sets, daily range): BP systolic 107–131; BP diastolic 48–64; PULSE 60–73; RESP 15–20; TEMP 97.6–97.8; O2SAT 95–98
[2025-05-27 05:25] LABS: MEAN PLATELET VOLUME 9.6 FL (7.4-10.4); RED CELL DISTRIBUTION WIDTH 18.3 % (11.5-14.5)
[2025-05-27 05:52] LABS: CREATININE 10.44 MG/DL (0.60-1.10); PHOSPHORUS 8.3 MG/DL (2.3-4.5); TOTAL CARBON DIOXIDE 31.5 MMOL/L (24-32); eCRCL 8 ML/MIN; eGFR 5 ML/MIN
[2025-05-27] MEDS ORDERED: normal saline 1000ml 100 ML IV PRN (08:00)
[2025-05-27] MEDS: aspirin 81mg, enteric-coated 1 TAB TABLET.DR PO SCH (09:11)
[2025-05-27] MEDS ORDERED: LIDOcaine 1% (10mg/ml) 2ml vial ONE (09:30)
[2025-05-27] MEDS: LIDOcaine 1% (10mg/ml) 2ml vial SQ ONE (09:33)
[2025-05-27] MEDS ORDERED: LEVO750T68 PO (11:29)
[2025-05-27] MEDS: sevelamer carbonate 800mg tablet PO ONE (13:02)
[2025-05-27] MEDS: azithromycin/NS 500mg/250ml 250 ML IV SCH (13:02)
[2025-05-27] MEDS: CefTRIAXone/D5W-Rocephin 1gm 50 ML IV SCH (13:17)
[2025-05-27] MEDS ORDERED: HYDR-3965 PO (15:39)
--- NOTE | 2025-05-27 16:44 | DISCHARGE SUMMARY ---
Discharge Summary Providers to CC ~ Discharge Summary Admission Diagnosis: CAP, Acute HFrEF, ESRD on HD Hospital Course DATE OF ADMISSION: 05/25/25 DATE OF DISCHARGE: 05/27/25 Discharge Diagnosis\\Comment: Acute decompensated systolic heart failure- POA ESRD on HD Community-acquired pneumonia, covering for Gram-positive and Gram-negative- POA Generalized weakness Hypertension Operations\\Procedures: None Consultants: Director Of Infection Prevention Clay Drake Complications: None Condition on DC: Stable New Medications: Hydrocodone Bit/Acetaminophen 5/325 MG ([place] 5/325 MG) 5 Mg/325 Mg Tablet 1 TAB PO Q6H PRN for pain for 5 Days, #20 TAB Levofloxacin (Levofloxacin) 750 Mg Tablet 750 MG PO DAILY for 7 Days, #7 TAB Continued Medications: Aspirin (Aspirin EC) 81 Mg Tablet.dr 1 TAB PO DAILY Carvedilol (Carvedilol) 12.5 Mg Tablet 1 TAB PO BID Chlorpromazine HCl (Chlorpromazine HCl) 25 Mg Tablet 1 TAB PO DAILY Ergocalciferol (Vitamin D2) (Vitamin D2) 50 Mcg (2000 Unit) Capsule 1 CAP PO DAILY Famotidine (Famotidine) 40 Mg Tablet 1 TAB PO DAILY Hydrocodone Bit/Acetaminophen (Hydrocodon-Acetaminoph 7.5-325) 7.5 Mg-325 Mg Tablet 1 TAB PO Q4H PRN for breakthrough pain Losartan Potassium (Losartan Potassium) 50 Mg Tablet 1 TAB PO DAILY for 30 Days, #30 TAB 0 Refills Mirtazapine (Mirtazapine) 15 Mg Tablet 1 TAB PO HS Naloxone HCl (Naloxone HCl) 4 Mg/Actuation [place] 1 SPRAYS BOTHNARES PRN Nifedipine (Nifedipine Er) 30 Mg Tablet.sa 1 TAB PO DAILY ONDANSETRON ODT 4mg tablet (Ondansetron Odt) 4 Mg Tab.rapdis 1 TAB PO every 4 to 6 hours PRN for nausea/vomiting Polyethylene Glycol 3350 ([id number]) 17 Gram/Dose Powder 17 GM PO DAILY Rosuvastatin Calcium (Rosuvastatin Calcium) 20 Mg Tablet 1 TAB PO HS Tamsulosin Hcl* (Flomax*) 0.4 Mg Cap.sr.24h 0.4 MG PO BID Zinc Sulfate (Zinc-220) 50 Mg Zinc (220 Mg) Capsule 1 CAP PO DAILY Zolpidem Tartrate (Ambien) 10 Mg Tablet 1 TAB PO HS Discontinued Medications: Morphine Sulfate (Morphine Sulfate) 30 Mg Tablet 1 TAB PO BID PRN for pain Discharge Summary: History of Present Illness From H&P: "This is a 64-year-old male who was sent over from dialysis by heel sewer Dr. Mcfadden for further evaluation. The patient complains of generalized weakness x1 day as well as right upper extremity pain at the elbow x1 day and complains of random twitching which he has done intermittently for the past couple of months. The patient has tested for COVID he was negative and an venous ultrasound of the right upper extremities negative for DVT on the preliminary report. I spoke with Dr. Mcfadden who was in agreement with obtaining the ultrasound and ordering physical therapy had no other further recommendations. The patient is hypertensive otherwise other are no significant findings other than end-stage renal disease with a creatinine of 6.63." Hospital Course Findings were notable for elevated procal and chest x-ray pulmonary edema, small bilateral pleural effusions and cardiomegaly. TTE (04/02/25) revealed LVEF of 30- 35%. Pertinent negative findings were unremarkable CT right upper extremity other than small right elbow joint effusion, CT head, venous ultrasound of right upper extremity. Patient was treated with hemodialysis, empirical antibiotics, supportive care. Patient did not experience further complications throughout the entire hospital stay. Patient was seen and examined on the day of discharge. All labs, diagnostic workups, discharge plan discussed with patient in details during visit before discharge. All questions and concerns answered to the best of my professional knowledge. Patient is to be discharged to home to self and to follow-up with PCP and heel sewer Dr. Mcfadden within 2 weeks. Physical Exam General: A&Ox 3, NAD HEENT: Normocephalic, PERRLA Neck: Supple, trachea midline, no JVD Chest: Clear to auscultation bilaterally Cardiovascular: RRR, S1&S2 GI: Soft and nontender Extremities: Tenderness of medial right elbow with palpation LICENSED GUIDE: CN II-XII intact, no focal deficits Musculoskeletal: No paraspinal muscle tenderness, no muscle spasm Skin: Warm and intact, no bruises no erythema/edema *Problems/Diagnosis: (1) Ground-level fall Status: Acute (2) Hyperphosphatemia Status: Acute (3) ESRD (end stage renal disease) on dialysis Status: Chronic (4) Right arm pain Status: Acute Total Time Spent on D/C: > 30 Minutes Date of Service: May 27, 2025 Billing Provider: KRISTIE CULLEN Common Visit Codes: [id number]/OBS DISCH DAY >30min KRISTIE CULLEN May 27, 2025 16:44
--- NOTE | 2025-05-27 19:49 | PROGRESS NOTE ---
Progress Note Dictate Providers to CC ~ Progress Note: ESRD-HD last dialysis yesterday, he was unable to ambulate after his treatment, he typically has very large volume IDWG, he had nearly 5 liters UF removed yesterday,he also reports very severe right elbow pain, neck pain, and difficulty with his memory since he fell and hit his head a few days ago, he denies GASCA, cnahges in vision, difficulty with speech or swallowing, he has difficulty with balance as well, no other falls reported Antibiotic Ordered?: N/A Subjective Subjective Doing well, scheduled for dialysis Objective Vitals Vital Signs Date Time Temp Pulse Resp B/P (MAP) Pulse Ox O2 Delivery O2 Flow Rate FiO2 05/27/25 14:15 15 05/27/25 12:35 97.7 69 127/64 (85) 97 Room Air 05/25/25 22:34 0 TRRR w/o murmur CTAB, no wheezes +BS, NT no edema Lab Results: 05/27/25 0454 05/27/25 0454 Other Results I & O 05/27/25 07:00 Intake Total 1120 ml Output Total 850 ml Balance 270 ml Intake Oral 1120 ml Output Urine Total 850 ml Problem\Assessment\Plan Problems/Diagnosis: (1) Ground-level fall Assessment & Plan: Hit head, when he fell against a cabinet 2 days ago, now neck, head and right elbow pain - CT head cervical spine and elbow all neagative (2) Hyperphosphatemia Assessment & Plan: Continue home binders (3) ESRD (end stage renal disease) on dialysis Assessment & Plan: Plan on dialysis tomorrow (4) Right arm pain Assessment & Plan: CT scan right elbow, negative Sepsis Screening Skin Color: Normal WALL,MAREK M III DO May 27, 2025 19:49
[2025-05-29 05:32] LABS: HBSAG SCREEN Negative (Negative)
== END 2025-05-27 15:43 | disposition home or self-care (01) | DRG 291 ==
LOC: ER 15:37 → ED HOLD 18:43 → ORTHO 4S 22:48
PROVIDERS: ADMIT Family Medicine; ATTEND Family Medicine
PROC: 5A1D70Z Performance of Urinary Filtration, Intermittent, Less than 6 Hours Per Day (ICD-10-PCS; principal; 2025-05-27)
DX: I13.2 Hypertensive heart and chronic kidney disease with heart failure and with stage 5 chronic kidney disease, or end stage renal disease (principal); I50.23 Acute on chronic systolic (congestive) heart failure; N18.6 End stage renal disease; J18.9 Pneumonia, unspecified organism; I25.10 Atherosclerotic heart disease of native coronary artery without angina pectoris; K21.9 Gastro-esophageal reflux disease without esophagitis; Z20.822 Contact with and (suspected) exposure to COVID-19; E83.39 Other disorders of phosphorus metabolism; G62.9 Polyneuropathy, unspecified; N40.0 Benign prostatic hyperplasia without lower urinary tract symptoms; D63.1 Anemia in chronic kidney disease; I25.2 Old myocardial infarction; Z99.2 Dependence on renal dialysis; Z95.1 Presence of aortocoronary bypass graft; Z90.81 Acquired absence of spleen; Z87.891 Personal history of nicotine dependence; Z86.718 Personal history of other venous thrombosis and embolism; Z79.82 Long term (current) use of aspirin; Z79.899 Other long term (current) drug therapy
CPT/HCPCS: 36415; 70450; 71045; 72125; 73200; 80048; 80053; 83605; 83735; 84100; 84145; 84484; 85025; 87040; 87081; 87340; 87811; 93005; 93971; 99285; A6449; E1594; G0257; G0378; J0360; J0456; J0696; J1171; J1644; J2003; J7040; Q0161